=== PATIENT | male | born 1950 | race Caucasian/White ===

== ENCOUNTER 2017-12-26 07:55 | Day surgery (SDC) | payer MEDICARE, OTHER ==
[~2017-12-26 07:55] MED LIST: ACET500; ALBU90OI INH; ALBU90OI6 INH; ALPR.5 PO; ASCO500 PO; ASPI325EC PO; Accuneb1.25 MG/3 INH; Amiodarone HCl200 MG PO; B Complex1 EAC2 PO; BACL10 PO; BENZ100A PO; BREO ELLIPTA 11 EACH IH; BUDE6HFA INH; BUSP10 PO; CEPH500 PO; CHOL10002 PO; CLEARLAX119 GM; CORICIDIN HBP; CORICIDIN HBP PO; CRANBERRY250 MG PO; CYCL10 PO; CYCL1OPSOA LEFTEYE; Chewable-Vite1 EAC1 PO; Coumadin5 MG PO; Coumadin7.5 MG PO; DOCU100 PO; Duoneb 2.5-0.5 M3 ML INH; Esgic Tablet1 EACH PO; FISH OIL 1,2001 EACH PO; FISH1000 PO; FURO20 PO; Flovent 110 MCG12 GM INH; GABA300 PO; GAVILAX17 GM PO; GLIP10 PO; Glucophage1000 MG PO; HYDR1TAB94 PO; IBUPROFEN200 MG PO; INSDET100 SC; INSDET100 SQ; INSULANPEN; INSULANPEN SC; Ibuprofen Ib200 MG; Ibuprofen Ib200 MG PO; Keflex500 MG PO; LAVAP17G PO; LISI20 PO; LOSARTAN POTAS100 MG PO; METF500 PO; METO25ER PO; NAPR220; NAPR220 PO; NAPR375 PO; NAPR500 PO; NITR.4SL SL; Nitrostat0.4 MG SL; Novolog Fl100 UNIT/1; Novolog100 UNIT/1 SC; OMEP20ER PO; OXYC5; OXYC5 PO; PANT40 PO; PARO10 PO; PRAV20 PO; PROM25 PO; Percocet 5-3251 EACH PO; Pravachol80 MG PO; Pred Forte1 ML LEFTEYE; Roxicodone5 MG PO; SENN187 PO; SPIR25 PO; STRESS B-COMPL1 EACH PO; SUCR1 PO; TAMS.4ER PO; TRAM50 PO; TRIA80TC TOP; VITAMIN D35000 UNI1 PO; Vibramycin100 MG PO; WARF7.5 PO; Zithromax250 MG PO; [UNRECOGNIZED DRUG - OTHER] MC
[2018-10-31] MEDS ORDERED: Norco 5-325 Ta1 EACH PO (00:59)
[2018-10-31] MEDS ORDERED: CYCL10 PO (00:59)
== END 2017-12-26 22:46 | disposition home or self-care (01) ==
LOC: WOUND 07:55
DX: Z48.00 Encounter for change or removal of nonsurgical wound dressing (principal); E10.21 Type 1 diabetes mellitus with diabetic nephropathy; S51.002S Unspecified open wound of left elbow, sequela; N18.3 Chronic kidney disease, stage 3 (moderate); I50.20 Unspecified systolic (congestive) heart failure; J44.9 Chronic obstructive pulmonary disease, unspecified; E66.09 Other obesity due to excess calories
CPT/HCPCS: G0463

== ENCOUNTER 2018-01-02 09:00 | Day surgery (SDC) | payer MEDICARE, OTHER ==
[2018-10-31] MEDS ORDERED: Norco 5-325 Ta1 EACH PO (00:59)
[2018-10-31] MEDS ORDERED: CYCL10 PO (00:59)
== END 2018-01-02 14:19 | disposition home or self-care (01) ==
LOC: WOUND 09:00
DX: Z48.00 Encounter for change or removal of nonsurgical wound dressing (principal); S51.002S Unspecified open wound of left elbow, sequela; E10.21 Type 1 diabetes mellitus with diabetic nephropathy; E10.22 Type 1 diabetes mellitus with diabetic chronic kidney disease; I50.20 Unspecified systolic (congestive) heart failure; N18.3 Chronic kidney disease, stage 3 (moderate); J44.9 Chronic obstructive pulmonary disease, unspecified; E66.09 Other obesity due to excess calories
CPT/HCPCS: G0463

== ENCOUNTER 2018-01-08 09:30 | Day surgery (SDC) | payer MEDICARE, OTHER ==
[2018-10-31] MEDS ORDERED: Norco 5-325 Ta1 EACH PO (00:59)
[2018-10-31] MEDS ORDERED: CYCL10 PO (00:59)
== END 2018-01-08 10:18 | disposition home or self-care (01) ==
LOC: WOUND 09:30
DX: Z48.00 Encounter for change or removal of nonsurgical wound dressing (principal); E10.21 Type 1 diabetes mellitus with diabetic nephropathy; S51.002S Unspecified open wound of left elbow, sequela; I50.20 Unspecified systolic (congestive) heart failure; E10.22 Type 1 diabetes mellitus with diabetic chronic kidney disease; N18.3 Chronic kidney disease, stage 3 (moderate); J44.9 Chronic obstructive pulmonary disease, unspecified; E66.09 Other obesity due to excess calories
CPT/HCPCS: G0463

== ENCOUNTER 2018-03-27 08:46 | Day surgery (SDC) | payer MEDICARE, OTHER ==
[~2018-03-27] VITALS: Ht 180.3 cm; Wt 161.6 kg
== END 2018-03-27 12:14 | disposition home or self-care (01) ==
LOC: ORSCSDS 08:46
PROVIDERS: Student in an Organized Health Care Education/Training Program
PROC: 0Y6T0Z1 Detachment at Right 3rd Toe, High, Open Approach (ICD-10-PCS; principal; 2018-03-27 10:15)
DX: E11.621 Type 2 diabetes mellitus with foot ulcer (principal); L97.519 Non-pressure chronic ulcer of other part of right foot with unspecified severity; M20.41 Other hammer toe(s) (acquired), right foot; L08.9 Local infection of the skin and subcutaneous tissue, unspecified; M86.179 Other acute osteomyelitis, unspecified ankle and foot; I10 Essential (primary) hypertension; I50.9 Heart failure, unspecified; I25.2 Old myocardial infarction; I48.91 Unspecified atrial fibrillation; J45.909 Unspecified asthma, uncomplicated; G47.33 Obstructive sleep apnea (adult) (pediatric); K21.9 Gastro-esophageal reflux disease without esophagitis; Z79.01 Long term (current) use of anticoagulants; Z79.82 Long term (current) use of aspirin; Z79.4 Long term (current) use of insulin; Z79.899 Other long term (current) drug therapy; Z87.891 Personal history of nicotine dependence
CPT/HCPCS: 82947; 87070; 87075; 87205; 88305; 88311; J0360; J0690; J2250; J7120

== ENCOUNTER → 2018-05-14 | Outpatient (CLI) | payer MEDICARE, OTHER ==
[2018-05-14 14:33] LABS: International Normalized Ratio 1.55; Prothrombin Time Results 15.6 Sec (9.7-11.5)
== END ==
LOC: LAB UCHC 10:30 → LAB SHORT 10:30
PROVIDERS: Family Medicine
DX: Z79.01 Long term (current) use of anticoagulants (principal); Z51.81 Encounter for therapeutic drug level monitoring; I48.0 Paroxysmal atrial fibrillation
CPT/HCPCS: 85610

== ENCOUNTER → 2018-05-15 | Outpatient (CLI) | payer MEDICARE, OTHER ==
[2018-05-15 17:40] LABS: BASOPHILS ABSOLUTE AUTO 0.06 K/mm3 (0.00-0.23); BASOPHILS PERCENT AUTO 1 % (0-2); EOSINOPHILS ABSOLUTE AUTO 0.15 K/mm3 (0.00-0.68); EOSINOPHILS PERCENT AUTO 2 % (0-6); Hematocrit 46.7 % (37.0-53.0); Hemoglobin 15.4 g/dL (13.5-17.5); IMMATURE GRAN ABSOLUTE AUTO 0.11 K/mm3 (0.00-0.10); IMMATURE GRAN PERCENT AUTO 1 % (0-1); LYMPHOCYTES ABSOLUTE AUTO 2.39 K/mm3 (0.84-5.20); LYMPHOCYTES PERCENT AUTO 25 % (21-46); MONOCYTES PERCENT AUTO 8 % (4-13); Mean Corpuscular HGB 28.6 pg (26.0-34.0); Mean Corpuscular Volume 87 fL (80-100); NEUTROPHILS ABSOLUTE AUTO 5.98 K/mm3 (1.96-9.15); NEUTROPHILS PERCENT AUTO 63 % (41-73); Platelet Count 299 K/mm3 (150-400); RDW Coefficient Variation 15.7 % (11.7-14.2); RDW Standard Deviation 48.8 fL (35.1-46.3); Red Blood Cell Count 5.38 M/mm3 (4.30-5.90); White Blood Cell Count 9.49 K/mm3 (4.00-11.30)
[2018-05-15 17:56] LABS: Anion Gap 11 mmol/L (6-16); Blood Urea Nitrogen 27 mg/dL (8-24); Bun/Creatinine Ratio 17.1 (12.0-20.0); CO2, Blood 24 mmol/L (21-32); Chloride, Blood 105 mmol/L (98-108); Creatinine, Blood 1.58 mg/dL (0.60-1.20); Glomerular Filtration Rate 44 (60-); Glucose, Blood 317 mg/dL (70-99); Potassium, Blood 4.5 mmol/L (3.5-5.5); Sodium, Blood 140 mmol/L (136-145)
[2018-05-15 17:57] LABS: Troponin I <0.017 ng/mL (0.000-0.040)
== END ==
LOC: LAB SHORT 17:37
PROVIDERS: Physician Assistant Surgical
DX: R07.9 Chest pain, unspecified (principal)
CPT/HCPCS: 80048; 84484; 85025

== ENCOUNTER 2018-06-11 23:17 | Emergency (ER) | payer MEDICARE, OTHER ==
[~2018-06-11] VITALS: Ht 180.3 cm; Wt 163.3 kg
[2018-06-11 23:54] LABS: BASOPHILS ABSOLUTE AUTO 0.02 K/mm3 (0.00-0.23); BASOPHILS PERCENT AUTO 0 % (0-2); EOSINOPHILS ABSOLUTE AUTO 0.02 K/mm3 (0.00-0.68); EOSINOPHILS PERCENT AUTO 0 % (0-6); Hematocrit 47.6 % (37.0-53.0); IMMATURE GRAN ABSOLUTE AUTO 0.06 K/mm3 (0.00-0.10); IMMATURE GRAN PERCENT AUTO 1 % (0-1); LYMPHOCYTES ABSOLUTE AUTO 0.79 K/mm3 (0.84-5.20); LYMPHOCYTES PERCENT AUTO 10 % (21-46); MONOCYTES ABSOLUTE AUTO 0.09 K/mm3 (0.16-1.47); MONOCYTES PERCENT AUTO 1 % (4-13); Mean Corpuscular HGB 28.4 pg (26.0-34.0); Mean Corpuscular HGB Conc 31.5 g/dL (31.5-36.5); Mean Corpuscular Volume 90 fL (80-100); Mean Platelet Volume 8.6 fL (9.1-12.4); NEUTROPHILS ABSOLUTE AUTO 6.62 K/mm3 (1.96-9.15); NEUTROPHILS PERCENT AUTO 87 % (41-73); Platelet Count 268 K/mm3 (150-400); RDW Coefficient Variation 15.4 % (11.7-14.2); RDW Standard Deviation 50.8 fL (35.1-46.3); Red Blood Cell Count 5.28 M/mm3 (4.30-5.90)
[2018-06-12 00:13] LABS: Alanine Aminotransfer (ALT/SGP 45 U/L (12-78); Albumin, Blood 3.7 g/dL (3.4-5.0); Alk Phos 69 U/L (50-136); Anion Gap 11 mmol/L (6-16); Aspartate Aminotrans (AST/SGOT 26 U/L (12-37); Bilirubin, Total 0.4 mg/dL (0.1-1.0); Blood Urea Nitrogen 30 mg/dL (8-24); Bun/Creatinine Ratio 17.4 (12.0-20.0); CO2, Blood 21 mmol/L (21-32); Calcium, Blood 8.5 mg/dL (8.5-10.1); Chloride, Blood 106 mmol/L (98-108); Creatinine, Blood 1.72 mg/dL (0.60-1.20); Globulin, Blood 3.7 g/dL (2.2-4.0); Glomerular Filtration Rate 42 (60-); Glucose, Blood 462 mg/dL (70-99); Potassium, Blood 5.2 mmol/L (3.5-5.5); Sodium, Blood 138 mmol/L (136-145); Total Protein, Blood 7.4 g/dL (6.4-8.2); Troponin I <0.015 ng/mL (0.000-0.040)
[2018-06-12 00:20] LABS: International Normalized Ratio 1.12; Prothrombin Time Results 11.5 Sec (9.7-11.5)
== END 2018-06-12 02:50 | disposition home or self-care (01) ==
LOC: ER 23:17
PROVIDERS: Emergency Medicine
DX: E11.65 Type 2 diabetes mellitus with hyperglycemia (principal); R07.9 Chest pain, unspecified; I11.0 Hypertensive heart disease with heart failure; I50.9 Heart failure, unspecified; I25.2 Old myocardial infarction; I48.91 Unspecified atrial fibrillation; E78.00 Pure hypercholesterolemia, unspecified; Z88.0 Allergy status to penicillin; Z88.8 Allergy status to other drugs, medicaments and biological substances; Z79.899 Other long term (current) drug therapy; Z79.01 Long term (current) use of anticoagulants; Z79.84 Long term (current) use of oral hypoglycemic drugs; Z79.82 Long term (current) use of aspirin; Z79.4 Long term (current) use of insulin; Z79.891 Long term (current) use of opiate analgesic
CPT/HCPCS: 36415; 71046; 80053; 82947; 84484; 85025; 85610; 93005; 93010; 99285-25

== ENCOUNTER 2018-07-09 16:32 | Emergency (ER) | payer MEDICARE, OTHER ==
[~2018-07-09] VITALS: Ht 180.3 cm; Wt 155.6 kg
[2018-07-09 17:41] LABS: BASOPHILS ABSOLUTE AUTO 0.07 K/mm3 (0.00-0.23); BASOPHILS PERCENT AUTO 1 % (0-2); EOSINOPHILS ABSOLUTE AUTO 0.31 K/mm3 (0.00-0.68); EOSINOPHILS PERCENT AUTO 4 % (0-6); Hematocrit 45.3 % (37.0-53.0); Hemoglobin 14.7 g/dL (13.5-17.5); IMMATURE GRAN ABSOLUTE AUTO 0.05 K/mm3 (0.00-0.10); IMMATURE GRAN PERCENT AUTO 1 % (0-1); LYMPHOCYTES ABSOLUTE AUTO 2.07 K/mm3 (0.84-5.20); LYMPHOCYTES PERCENT AUTO 29 % (21-46); MONOCYTES ABSOLUTE AUTO 0.71 K/mm3 (0.16-1.47); MONOCYTES PERCENT AUTO 10 % (4-13); Mean Corpuscular HGB 28.8 pg (26.0-34.0); Mean Corpuscular HGB Conc 32.5 g/dL (31.5-36.5); Mean Corpuscular Volume 89 fL (80-100); Mean Platelet Volume 8.5 fL (9.1-12.4); NEUTROPHILS ABSOLUTE AUTO 3.98 K/mm3 (1.96-9.15); NEUTROPHILS PERCENT AUTO 55 % (41-73); Platelet Count 281 K/mm3 (150-400); RDW Coefficient Variation 15.2 % (11.7-14.2); RDW Standard Deviation 49.4 fL (35.1-46.3); Red Blood Cell Count 5.11 M/mm3 (4.30-5.90); White Blood Cell Count 7.19 K/mm3 (4.00-11.30)
[2018-07-09 18:04] LABS: Albumin, Blood 3.6 g/dL (3.4-5.0); Bilirubin, Total 0.3 mg/dL (0.1-1.0); Bun/Creatinine Ratio 15.3 (12.0-20.0); Calcium, Blood 9.7 mg/dL (8.5-10.1); Creatinine, Blood 1.37 mg/dL (0.60-1.20); Globulin, Blood 3.5 g/dL (2.2-4.0); Potassium, Blood 4.3 mmol/L (3.5-5.5); Total Protein, Blood 7.1 g/dL (6.4-8.2)
[2018-07-09] MEDS ORDERED: Percocet 5-3251 EACH PO (19:53)
== END 2018-07-09 20:03 | disposition home or self-care (01) ==
LOC: ER 16:32
PROVIDERS: Emergency Medicine
DX: M50.30 Other cervical disc degeneration, unspecified cervical region (principal); R51 Headache; E11.9 Type 2 diabetes mellitus without complications; I25.2 Old myocardial infarction; I48.91 Unspecified atrial fibrillation; I11.0 Hypertensive heart disease with heart failure; I50.9 Heart failure, unspecified; Z88.0 Allergy status to penicillin; Z88.8 Allergy status to other drugs, medicaments and biological substances; Z79.899 Other long term (current) drug therapy; Z79.01 Long term (current) use of anticoagulants; Z79.4 Long term (current) use of insulin; Z87.891 Personal history of nicotine dependence
CPT/HCPCS: 36415; 72125; 80053; 85025; 93005; 93010; 99284-25

== ENCOUNTER → 2019-03-16 | Outpatient (CLI) | payer MEDICARE, OTHER ==
[~2019-03-16] MED LIST changes: +Norco 5-325 Ta1 EACH PO
[2019-03-16 11:52] LABS: BASOPHILS ABSOLUTE AUTO 0.07 K/mm3 (0.00-0.23); BASOPHILS PERCENT AUTO 1 % (0-2); EOSINOPHILS ABSOLUTE AUTO 0.31 K/mm3 (0.00-0.68); EOSINOPHILS PERCENT AUTO 5 % (0-6); Hematocrit 45.6 % (37.0-53.0); Hemoglobin 14.9 g/dL (13.5-17.5); IMMATURE GRAN ABSOLUTE AUTO 0.03 K/mm3 (0.00-0.10); IMMATURE GRAN PERCENT AUTO 1 % (0-1); LYMPHOCYTES ABSOLUTE AUTO 1.87 K/mm3 (0.84-5.20); LYMPHOCYTES PERCENT AUTO 30 % (21-46); MONOCYTES PERCENT AUTO 10 % (4-13); Mean Corpuscular HGB 28.7 pg (26.0-34.0); Mean Corpuscular HGB Conc 32.7 g/dL (31.5-36.5); Mean Corpuscular Volume 88 fL (80-100); Mean Platelet Volume 9.1 fL (9.1-12.4); NEUTROPHILS ABSOLUTE AUTO 3.27 K/mm3 (1.96-9.15); NEUTROPHILS PERCENT AUTO 53 % (41-73); Platelet Count 233 K/mm3 (150-400); RDW Coefficient Variation 14.5 % (11.7-14.2); RDW Standard Deviation 46.2 fL (35.1-46.3); Red Blood Cell Count 5.19 M/mm3 (4.30-5.90); White Blood Cell Count 6.15 K/mm3 (4.00-11.30)
[2019-03-16 12:20] LABS: Alanine Aminotransfer (ALT/SGP 35 U/L (12-78); Albumin, Blood 3.5 g/dL (3.4-5.0); Alk Phos 77 U/L (40-126); Anion Gap 10 mmol/L (6-16); Aspartate Aminotrans (AST/SGOT 24 U/L (12-37); Bilirubin, Total 0.6 mg/dL (0.1-1.0); Blood Urea Nitrogen 19 mg/dL (8-24); CO2, Blood 26 mmol/L (21-32); Calcium, Blood 8.8 mg/dL (8.5-10.1); Chloride, Blood 105 mmol/L (98-108); Creatinine, Blood 1.36 mg/dL (0.60-1.20); Globulin, Blood 3.6 g/dL (2.2-4.0); Glomerular Filtration Rate 52 (60-); Glucose, Blood 208 mg/dL (70-99); Potassium, Blood 4.1 mmol/L (3.5-5.5); Sodium, Blood 141 mmol/L (136-145); Total Protein, Blood 7.1 g/dL (6.4-8.2)
[2019-03-16 12:28] LABS: Troponin I <0.017 ng/mL (0.000-0.040)
== END | disposition home or self-care (01) ==
LOC: LAB SHORT 11:44 → LAB EV 11:44
PROVIDERS: Physician Assistant
DX: R07.9 Chest pain, unspecified (principal)
CPT/HCPCS: 80053; 83880; 84484; 85025

== ENCOUNTER 2019-06-24 17:30 | Emergency (ER) | payer MEDICARE, OTHER ==
[~2019-06-24] VITALS: Ht 180.3 cm; Wt 147.4 kg
[2019-06-24 18:08] LABS: BASOPHILS ABSOLUTE AUTO 0.05 K/mm3 (0.00-0.23); BASOPHILS PERCENT AUTO 1 % (0-2); EOSINOPHILS ABSOLUTE AUTO 0.28 K/mm3 (0.00-0.68); EOSINOPHILS PERCENT AUTO 4 % (0-6); Hemoglobin 15.1 g/dL (13.5-17.5); IMMATURE GRAN ABSOLUTE AUTO 0.04 K/mm3 (0.00-0.10); IMMATURE GRAN PERCENT AUTO 1 % (0-1); LYMPHOCYTES ABSOLUTE AUTO 2.09 K/mm3 (0.84-5.20); LYMPHOCYTES PERCENT AUTO 29 % (21-46); MONOCYTES ABSOLUTE AUTO 0.64 K/mm3 (0.16-1.47); MONOCYTES PERCENT AUTO 9 % (4-13); Mean Corpuscular HGB 28.9 pg (26.0-34.0); Mean Corpuscular HGB Conc 32.1 g/dL (31.5-36.5); Mean Corpuscular Volume 90 fL (80-100); Mean Platelet Volume 8.7 fL (9.1-12.4); NEUTROPHILS ABSOLUTE AUTO 4.14 K/mm3 (1.96-9.15); NEUTROPHILS PERCENT AUTO 57 % (41-73); Platelet Count 295 K/mm3 (150-400); RDW Coefficient Variation 14.1 % (11.7-14.2); RDW Standard Deviation 46.8 fL (35.1-46.3); Red Blood Cell Count 5.22 M/mm3 (4.30-5.90); White Blood Cell Count 7.24 K/mm3 (4.00-11.30)
[2019-06-24 18:25] LABS: International Normalized Ratio 1.7; Prothrombin Time Results 17.2 Sec (9.7-11.5)
[2019-06-24 18:31] LABS: Alanine Aminotransfer (ALT/SGP 39 U/L (12-78); Albumin, Blood 3.6 g/dL (3.4-5.0); Albumin/Globulin Ratio 1.1 (0.8-1.8); Alk Phos 87 U/L (50-136); Anion Gap 7 mmol/L (6-16); Aspartate Aminotrans (AST/SGOT 21 U/L (12-37); Bilirubin, Total 0.7 mg/dL (0.1-1.0); Blood Urea Nitrogen 20 mg/dL (8-24); Bun/Creatinine Ratio 16.3 (12.0-20.0); CO2, Blood 26 mmol/L (21-32); Calcium, Blood 8.7 mg/dL (8.5-10.1); Chloride, Blood 109 mmol/L (98-108); Creatinine, Blood 1.23 mg/dL (0.60-1.20); Globulin, Blood 3.3 g/dL (2.2-4.0); Glomerular Filtration Rate >60 (60-); Glucose, Blood 218 mg/dL (70-99); Sodium, Blood 142 mmol/L (136-145); Total Protein, Blood 6.9 g/dL (6.4-8.2); Troponin I <0.015 ng/mL (0.000-0.040)
[2019-06-24 19:39] LABS: Source, Urine Clean Catch
[2019-06-24 19:42] LABS: Bilirubin, Urine Neg (Neg); Blood, Urine 1+ (Neg); Glucose Qualitative, Urine 2+ (Neg); Ketones, Urine Neg (Neg); Leukocyte Esterase, Urine Neg (Neg); Nitrite, Urine Neg (Neg); Protein, Urine 4+ (Neg); Urobilinogen, Urine NORM (Normal)
[2019-06-24 19:49] LABS: Appearance, Urine Clear (Clear); Color, Urine Yellow (P-Yellow)
[2019-06-24 19:50] LABS: Bacteria Not Seen /hpf; Mucus Light (0-Heavy); Red Blood Cells, Urine 0-2 /hpf (0-2); Squamous Epithelial Cells Few /hpf (Few); White Blood Cells, Urine 0-2 /hpf (0-5)
== END 2019-06-24 20:20 | disposition home or self-care (01) ==
LOC: ER 17:30
PROVIDERS: Physician Assistant
DX: R07.9 Chest pain, unspecified (principal); R06.00 Dyspnea, unspecified; D68.9 Coagulation defect, unspecified; Z88.0 Allergy status to penicillin; Z88.8 Allergy status to other drugs, medicaments and biological substances; Z79.899 Other long term (current) drug therapy; Z79.01 Long term (current) use of anticoagulants; Z79.84 Long term (current) use of oral hypoglycemic drugs; Z79.82 Long term (current) use of aspirin; Z79.4 Long term (current) use of insulin; E11.9 Type 2 diabetes mellitus without complications; I25.2 Old myocardial infarction; I48.91 Unspecified atrial fibrillation; I11.0 Hypertensive heart disease with heart failure; I50.9 Heart failure, unspecified; E78.00 Pure hypercholesterolemia, unspecified; Z87.891 Personal history of nicotine dependence
CPT/HCPCS: 36415; 71046; 80053; 81001; 83880; 84484; 85025; 85610; 93005; 93010; 94640; 99284-25

== ENCOUNTER 2019-08-29 11:19 | Emergency (ER) | payer MEDICARE, OTHER ==
[~2019-08-29] VITALS: Ht 180.3 cm; Wt 142.4 kg
[2019-08-29 11:43] LABS: BASOPHILS ABSOLUTE AUTO 0.06 K/mm3 (0.00-0.23); BASOPHILS PERCENT AUTO 1 % (0-2); EOSINOPHILS ABSOLUTE AUTO 0.33 K/mm3 (0.00-0.68); EOSINOPHILS PERCENT AUTO 5 % (0-6); Hemoglobin 14.5 g/dL (13.5-17.5); IMMATURE GRAN ABSOLUTE AUTO 0.03 K/mm3 (0.00-0.10); IMMATURE GRAN PERCENT AUTO 0 % (0-1); LYMPHOCYTES ABSOLUTE AUTO 1.58 K/mm3 (0.84-5.20); LYMPHOCYTES PERCENT AUTO 22 % (21-46); MONOCYTES ABSOLUTE AUTO 0.57 K/mm3 (0.16-1.47); MONOCYTES PERCENT AUTO 8 % (4-13); Mean Corpuscular HGB 28.8 pg (26.0-34.0); Mean Corpuscular HGB Conc 32.2 g/dL (31.5-36.5); Mean Corpuscular Volume 89 fL (80-100); Mean Platelet Volume 9.2 fL (9.1-12.4); NEUTROPHILS ABSOLUTE AUTO 4.72 K/mm3 (1.96-9.15); NEUTROPHILS PERCENT AUTO 65 % (41-73); Platelet Count 231 K/mm3 (150-400); RDW Standard Deviation 45.3 fL (35.1-46.3); Red Blood Cell Count 5.04 M/mm3 (4.30-5.90); White Blood Cell Count 7.29 K/mm3 (4.00-11.30)
[2019-08-29 11:53] LABS: Anion Gap 4 mmol/L (6-16); Blood Urea Nitrogen 19 mg/dL (8-24); Bun/Creatinine Ratio 16.5 (12.0-20.0); CO2, Blood 26 mmol/L (21-32); Calcium, Blood 8.6 mg/dL (8.5-10.1); Chloride, Blood 110 mmol/L (98-108); Creatinine, Blood 1.15 mg/dL (0.60-1.20); Glomerular Filtration Rate >60 (60-); Glucose, Blood 219 mg/dL (70-99); Potassium, Blood 4.4 mmol/L (3.5-5.5); Sodium, Blood 140 mmol/L (136-145)
[2019-08-29] MEDS ORDERED: Norco 10-325 T1 EACH PO (14:16)
== END 2019-08-29 14:35 | disposition home or self-care (01) ==
LOC: ER 11:19
PROVIDERS: Emergency Medicine
DX: S16.1XXA Strain of muscle, fascia and tendon at neck level, initial encounter (principal); S80.02XA Contusion of left knee, initial encounter; S80.01XA Contusion of right knee, initial encounter; S70.01XA Contusion of right hip, initial encounter; M25.562 Pain in left knee; E11.9 Type 2 diabetes mellitus without complications; I25.2 Old myocardial infarction; I11.0 Hypertensive heart disease with heart failure; I50.9 Heart failure, unspecified; I48.91 Unspecified atrial fibrillation; Z87.891 Personal history of nicotine dependence; Z88.1 Allergy status to other antibiotic agents; Z88.8 Allergy status to other drugs, medicaments and biological substances; Z79.899 Other long term (current) drug therapy; Z79.01 Long term (current) use of anticoagulants; Z79.82 Long term (current) use of aspirin; Z79.4 Long term (current) use of insulin; W01.10XA Fall on same level from slipping, tripping and stumbling with subsequent striking against unspecified object, initial encounter
CPT/HCPCS: 36415; 72125; 72192; 73030; 73502; 73560-LT; 80048; 85025; 96374; 99284-25; J0692; J2270

== ENCOUNTER 2019-09-05 15:39 | Emergency (ER) | payer MEDICARE, OTHER ==
[~2019-09-05] VITALS: Ht 180.3 cm; Wt 151.9 kg
[~2019-09-05 15:39] MED LIST changes: +Norco 10-325 T1 EACH PO
[2019-09-05 18:08] LABS: International Normalized Ratio 1.78; Prothrombin Time Results 17.9 Sec (9.7-11.5)
[2019-09-05] MEDS ORDERED: Norco 5-325 Ta1 EACH PO (18:30)
[2019-09-05] MEDS ORDERED: Vibramycin100 MG PO ×2 (18:30→18:40)
== END 2019-09-05 18:59 | disposition home or self-care (01) ==
LOC: ER 15:39
PROVIDERS: Physician Assistant
DX: S92.422A Displaced fracture of distal phalanx of left great toe, initial encounter for closed fracture (principal); S90.32XA Contusion of left foot, initial encounter; L03.116 Cellulitis of left lower limb; E11.9 Type 2 diabetes mellitus without complications; I11.0 Hypertensive heart disease with heart failure; I50.9 Heart failure, unspecified; I48.91 Unspecified atrial fibrillation; Z87.891 Personal history of nicotine dependence; Z88.1 Allergy status to other antibiotic agents; Z88.8 Allergy status to other drugs, medicaments and biological substances; Z79.899 Other long term (current) drug therapy; Z79.01 Long term (current) use of anticoagulants; Z79.82 Long term (current) use of aspirin; Z79.4 Long term (current) use of insulin; W19.XXXA Unspecified fall, initial encounter
CPT/HCPCS: 36415; 73590; 73620; 85610; 99283-25

== ENCOUNTER → 2019-11-03 | Outpatient (CLI) | payer MEDICARE, OTHER ==
[~2019-11-03] MED LIST changes: +ACET325 PO; +AMLODIPINE BESY10 MG PO; +ATOR40TA PO; +BUPR150ER PO; +Budesonide0.5 MG/2 M NEB; +Culturelle1 CAP PO; +Duoneb 2.5-0.5 M3 ML NEB; +HUMULIN 70100 UNIT/2 SC; +HUMULIN 70100 UNIT/2 SQ; -OXYC5; -PARO10 PO; +PARO20 PO; +Pedi-Dri 100,0060 GM TOP
[2019-11-03 16:20] LABS: BASOPHILS ABSOLUTE AUTO 0.09 K/mm3 (0.00-0.23); BASOPHILS PERCENT AUTO 1 % (0-2); EOSINOPHILS PERCENT AUTO 4 % (0-6); Hematocrit 48.2 % (37.0-53.0); IMMATURE GRAN ABSOLUTE AUTO 0.05 K/mm3 (0.00-0.10); IMMATURE GRAN PERCENT AUTO 1 % (0-1); LYMPHOCYTES ABSOLUTE AUTO 3.06 K/mm3 (0.84-5.20); LYMPHOCYTES PERCENT AUTO 33 % (21-46); MONOCYTES ABSOLUTE AUTO 0.78 K/mm3 (0.16-1.47); MONOCYTES PERCENT AUTO 8 % (4-13); Mean Corpuscular HGB 28.8 pg (26.0-34.0); Mean Corpuscular HGB Conc 31.1 g/dL (31.5-36.5); Mean Corpuscular Volume 93 fL (80-100); Mean Platelet Volume 9.4 fL (9.1-12.4); NEUTROPHILS ABSOLUTE AUTO 4.96 K/mm3 (1.96-9.15); NEUTROPHILS PERCENT AUTO 53 % (41-73); Platelet Count 281 K/mm3 (150-400); RDW Coefficient Variation 14.2 % (11.7-14.2); White Blood Cell Count 9.34 K/mm3 (4.00-11.30)
[2019-11-03 16:33] LABS: Very Low Density Lipoprot Chol 43 mg/dL (6-32)
[2019-11-03 16:42] LABS: Alanine Aminotransfer (ALT/SGP 37 U/L (12-78); Albumin, Blood 3.6 g/dL (3.4-5.0); Alk Phos 69 U/L (50-136); Anion Gap 7 mmol/L (6-16); Aspartate Aminotrans (AST/SGOT 20 U/L (12-37); Bilirubin, Total 0.7 mg/dL (0.1-1.0); Blood Urea Nitrogen 27 mg/dL (8-24); CHOL/HDL RATIO 3.9; CO2, Blood 25 mmol/L (21-32); Calcium, Blood 9.3 mg/dL (8.5-10.1); Chloride, Blood 110 mmol/L (98-108); Cholesterol 172 mg/dL (50-200); Globulin, Blood 3.5 g/dL (2.2-4.0); Glomerular Filtration Rate 49 (60-); Glucose, Blood 175 mg/dL (70-99); HDL Cholesterol 44 mg/dL (>39); LDL/HDL RATIO 1.9; Low Density Lipoprotein Chol 85 mg/dL (0-110); Potassium, Blood 4.2 mmol/L (3.5-5.5); Prostate Specific Antigen 0.301 ng/mL (0.000-4.000); Sodium, Blood 142 mmol/L (136-145); Total Protein, Blood 7.1 g/dL (6.4-8.2); Triglycerides 215 mg/dL (30-160)
[2019-11-03 18:22] LABS: Creatinine, Urine Random 91.4 mg/dL (27.00-270.00)
[2019-11-03 18:31] LABS: Microalb/Creat Ratio UR, Rand 1794.31 mg/g (0.000-30.000)
== END ==
LOC: LAB SHORT 14:15 → LAB 14:15 → LAB FUT 10-19 08:40 → EDSTATUS 10-19 08:40
PROVIDERS: Family Medicine
DX: E11.22 Type 2 diabetes mellitus with diabetic chronic kidney disease (principal); N18.9 Chronic kidney disease, unspecified; N40.1 Benign prostatic hyperplasia with lower urinary tract symptoms; E11.65 Type 2 diabetes mellitus with hyperglycemia; E11.42 Type 2 diabetes mellitus with diabetic polyneuropathy; Z79.4 Long term (current) use of insulin
CPT/HCPCS: 80053; 80061; 82043; 82570; 83036; 84153; 84443; 85025

== ENCOUNTER 2019-12-08 12:21 | Inpatient (IN) | payer MEDICARE, OTHER ==
[~2019-12-08] VITALS: Ht 180.3 cm; Wt 154.4 kg
[~2019-12-08 12:21] MED LIST changes: -ACET325 PO; -ALBU90OI6 INH; -AMLODIPINE BESY10 MG PO; -ATOR40TA PO; -BUPR150ER PO; -Budesonide0.5 MG/2 M NEB; -Culturelle1 CAP PO; -Duoneb 2.5-0.5 M3 ML NEB; -GABA300 PO; -GLIP10 PO; -Glucophage1000 MG PO; -HUMULIN 70100 UNIT/2 SC; -HUMULIN 70100 UNIT/2 SQ; -LOSARTAN POTAS100 MG PO; -METO25ER PO; -PARO20 PO; -Pedi-Dri 100,0060 GM TOP; -TAMS.4ER PO
[2019-12-08 13:33] LABS: BASOPHILS ABSOLUTE AUTO 0.05 K/mm3 (0.00-0.23); BASOPHILS PERCENT AUTO 0 % (0-2); EOSINOPHILS ABSOLUTE AUTO 0.02 K/mm3 (0.00-0.68); EOSINOPHILS PERCENT AUTO 0 % (0-6); Hematocrit 48.4 % (37.0-53.0); Hemoglobin 15.5 g/dL (13.5-17.5); IMMATURE GRAN ABSOLUTE AUTO 0.08 K/mm3 (0.00-0.10); IMMATURE GRAN PERCENT AUTO 1 % (0-1); LYMPHOCYTES ABSOLUTE AUTO 2.12 K/mm3 (0.84-5.20); LYMPHOCYTES PERCENT AUTO 13 % (21-46); MONOCYTES ABSOLUTE AUTO 1.64 K/mm3 (0.16-1.47); MONOCYTES PERCENT AUTO 10 % (4-13); Mean Corpuscular HGB 28.6 pg (26.0-34.0); Mean Corpuscular Volume 89 fL (80-100); Mean Platelet Volume 9.3 fL (9.1-12.4); NEUTROPHILS ABSOLUTE AUTO 12.32 K/mm3 (1.96-9.15); NEUTROPHILS PERCENT AUTO 76 % (41-73); Platelet Count 285 K/mm3 (150-400); RDW Coefficient Variation 14.3 % (11.7-14.2); RDW Standard Deviation 46.4 fL (35.1-46.3); Red Blood Cell Count 5.42 M/mm3 (4.30-5.90); White Blood Cell Count 16.23 K/mm3 (4.00-11.30)
[2019-12-08 15:03] LABS: Alanine Aminotransfer (ALT/SGP 48 U/L (12-78); Albumin, Blood 3.6 g/dL (3.4-5.0); Albumin/Globulin Ratio 0.9 (0.8-1.8); Alk Phos 71 U/L (50-136); Anion Gap 9 mmol/L (6-16); Aspartate Aminotrans (AST/SGOT 23 U/L (12-37); Bilirubin, Total 0.9 mg/dL (0.1-1.0); Blood Urea Nitrogen 24 mg/dL (8-24); Bun/Creatinine Ratio 15.8 (12.0-20.0); CO2, Blood 21 mmol/L (21-32); Calcium, Blood 9.1 mg/dL (8.5-10.1); Chloride, Blood 111 mmol/L (98-108); Creatinine, Blood 1.52 mg/dL (0.60-1.20); Globulin, Blood 3.8 g/dL (2.2-4.0); Glomerular Filtration Rate 49 (60-); Glucose, Blood 197 mg/dL (70-99); Potassium, Blood 4.6 mmol/L (3.5-5.5); Sodium, Blood 141 mmol/L (136-145); Total Protein, Blood 7.4 g/dL (6.4-8.2); Troponin I <0.015 ng/mL (0.000-0.040)
[2019-12-08] MEDS ORDERED: PARO20 PO ×2 (15:40)
[2019-12-08] MEDS ORDERED: Glucophage1000 MG PO ×2 (15:40)
[2019-12-08] MEDS ORDERED: BUPR150ER PO ×2 (15:41)
[2019-12-08] MEDS ORDERED: Duoneb 2.5-0.5 M3 ML NEB ×2 (15:42)
[2019-12-08] MEDS ORDERED: HUMULIN 70100 UNIT/2 SC ×2 (15:43)
[2019-12-08] MEDS ORDERED: OXYC5 PO ×2 (15:45)
[2019-12-08] MEDS ORDERED: METO25ER PO ×2 (15:45)
[2019-12-08] MEDS ORDERED: TAMS.4ER PO ×2 (15:45)
[2019-12-08] MEDS ORDERED: WARF7.5 PO ×2 (15:46)
[2019-12-08] MEDS ORDERED: LOSARTAN POTAS100 MG PO ×2 (15:47)
[2019-12-08] MEDS ORDERED: AMLODIPINE BESY10 MG PO ×2 (15:47)
[2019-12-08] MEDS ORDERED: FURO20 PO ×2 (15:48)
[2019-12-08] MEDS ORDERED: GLIP10 PO ×2 (15:48)
[2019-12-08] MEDS ORDERED: ATOR40TA PO ×2 (15:49)
[2019-12-08] MEDS ORDERED: GABA300 PO ×2 (15:50)
[2019-12-08 16:11] LABS: International Normalized Ratio 3.29; Prothrombin Time Results 32.9 Sec (9.7-11.5)
[2019-12-08] MEDS ORDERED: Budesonide0.5 MG/2 M NEB ×2 (16:12)
[2019-12-08] MEDS ORDERED: ALBU90OI6 INH ×2 (16:12)
--- NOTE | 2019-12-08 20:15 | NUR ---
ARRIVAL TO PCU Pt arrives to PCU 11 at approx 1922 with ED RN at bedside. Pt transferred SBA to PCU bed. Pt in atrial fibrillation 110's-120s on arrival, htn noted. Pt with complaints of pain to LLE; medication given per orders. Pt alert and oriented but moderately forgetful. Pt's at bedside and states that pt is forgetful at baseline but has been more forgetful in the past couple of days. See admission assessment for detailed systems assessment. Will continue to montior.
[2019-12-09 03:45] LABS: BASOPHILS PERCENT AUTO 1 % (0-2); Hematocrit 45.5 % (37.0-53.0); Hemoglobin 14.9 g/dL (13.5-17.5); LYMPHOCYTES ABSOLUTE AUTO 2.23 K/mm3 (0.84-5.20); LYMPHOCYTES PERCENT AUTO 13 % (21-46); MONOCYTES ABSOLUTE AUTO 1.79 K/mm3 (0.16-1.47); MONOCYTES PERCENT AUTO 10 % (4-13); Mean Corpuscular HGB 28.9 pg (26.0-34.0); Mean Corpuscular HGB Conc 32.7 g/dL (31.5-36.5); Mean Corpuscular Volume 88 fL (80-100); Mean Platelet Volume 9.1 fL (9.1-12.4); Platelet Count 231 K/mm3 (150-400); RDW Coefficient Variation 14.3 % (11.7-14.2); RDW Standard Deviation 46.5 fL (35.1-46.3); Red Blood Cell Count 5.15 M/mm3 (4.30-5.90); White Blood Cell Count 17.46 K/mm3 (4.00-11.30)
[2019-12-09 03:51] LABS: EOSINOPHILS ABSOLUTE AUTO 0.25 K/mm3 (0.00-0.68); EOSINOPHILS PERCENT AUTO 1 % (0-6); IMMATURE GRAN ABSOLUTE AUTO 0.08 K/mm3 (0.00-0.10); IMMATURE GRAN PERCENT AUTO 1 % (0-1); NEUTROPHILS ABSOLUTE AUTO 13.01 K/mm3 (1.96-9.15); NEUTROPHILS PERCENT AUTO 74 % (41-73)
[2019-12-09 04:00] LABS: International Normalized Ratio 1.73; Prothrombin Time Results 17.9 Sec (9.7-11.5)
--- NOTE | 2019-12-09 04:05 | NUR ---
Shift Summary Pt with no acute events overnight. Provider called for HR and BP elevation. 5mg IV lopressor given x2 per orders and HR and BP resolved. Pt using urinal in bed with assistance. Pain controlled with 5mg oxycodone. Pt uses call light to make needs known. Pt urgent with voiding. Normothermic this shift since admission. No acute changes from initial admission assessment. Cellulitis to LLE marked by ER to monitor growth and changes. Hand off given to RAFAEL Piedra who assumes care.
[2019-12-09 04:09] LABS: Albumin, Blood 3.2 g/dL (3.4-5.0); Albumin/Globulin Ratio 0.9 (0.8-1.8); Bilirubin, Total 0.9 mg/dL (0.1-1.0); Bun/Creatinine Ratio 16.2 (12.0-20.0); Calcium, Blood 8.7 mg/dL (8.5-10.1); Creatinine, Blood 1.48 mg/dL (0.60-1.20); Globulin, Blood 3.6 g/dL (2.2-4.0); Potassium, Blood 4.2 mmol/L (3.5-5.5); Total Protein, Blood 6.8 g/dL (6.4-8.2)
--- NOTE | 2019-12-09 08:50 | NUR ---
AM NOTE... ASSUMED CARE OF PT APROX 0700. PT IS A&Ox4 AND SBA IN THE ROOM. PT WAS SITTING UP IN RECLINER CHAIR AT THE START OF THIS SHIFT. PT WAS ADMITTED FOR SEPSIS D/T CELLULITIS OF THE LEFT KNEE/CALF. PT HAS 10/10 PAIN WHEN HIS LEFT LEG IS TOUCHED, RESTING THE PAIN IS 7/10. PT'S VS STABLE. L/S CLEAR. BT PRESENT AND NORMOACTIVE. ABD IS SOFT AND NONTENDER. CALL LIGHT IN REACH WILL CONTINUE TO MONITOR.
--- NOTE | 2019-12-09 12:18 | NUR ---
PT UPDATE... PER PROVIDER PLEASE MEASURE PT'S LEFT CALF PER SHIFT X3 SHIFTS AND THEN DAILY. TODAY THE PT'S RIGHT CALF IS 15.5 INCHES, HIS LEFT CALF IS 17.5 INCHES.
--- NOTE | 2019-12-09 12:31 | NUR ---
Spiritual care visit conducted. Patient is sitting on a chair and alert. Patient immediately shares about his family unit complications, about his medical issues and about his career/family/orthodox history. Patient tells me about the stress and tension he is living in. I listen empathically, normalize patient experience, explore orthodox beliefs, conduct life review and provide grief/emotional support, pastoral phone counselor and prayer. Patient responds well and shows signs of reduced stress. Patient voices gratitude for the visit.
--- NOTE | 2019-12-09 15:08 | NUR ---
PT UPDATE... REPORT WAS CALLED TO MEDICAL FLOOR RN, PT'S BELONGINGS PACKED AND SENT W/PT. PT WAS MEDICATED FOR PAIN PRIOR TO TRANSFER.
--- NOTE | 2019-12-09 17:51 | NUR ---
PT ARRIVED TO THE UNIT VIA WHEEL CHAIR. PT ORIENTATED TO THE ROOM. AT BEDSIDE. PT TO RECIEVE ULTRASOUND OF THE LEG WILL DETERMINE COURSE OF TREATMENT. NO NEEDS AT THIS TIME
--- NOTE | 2019-12-10 | NUR ---
PATIENT RECEIVED IV ABX X TWO. AXOX 3. CBG 181. DENIES PAIN AT THIS TIME. CPAP ON AND CALL LIGHT IN REACH.
--- NOTE | 2019-12-10 04:14 | NUR ---
SHIFT SUMMARY PATIENT HAD NO ACUTE CHANGES OBSERVED. AXOX 3 AND BEDREST AT NIGHT. USES URINAL IN BED WITH ASSIST. CBG 181. PIV REMAINS INTACT. IV ABX INFUSED X THREE. VSS/FEBRILE. DENIES SOB AND N/V. USES CPAP AT NIGHT ON ROOM AIR. LLE CELLULITIS. DENIES PAIN AT THIS TIME. CALL LIGHT IN REACH. BED IN LOWEST POSITON. WILL CONTINUE TO MONITOR UNTIL DAY SHIFT NURSE ASSUMES CARE.
[2019-12-10 05:04] LABS: BASOPHILS ABSOLUTE AUTO 0.06 K/mm3 (0.00-0.23); BASOPHILS PERCENT AUTO 0 % (0-2); EOSINOPHILS ABSOLUTE AUTO 0.44 K/mm3 (0.00-0.68); EOSINOPHILS PERCENT AUTO 3 % (0-6); Hematocrit 44.4 % (37.0-53.0); IMMATURE GRAN ABSOLUTE AUTO 0.06 K/mm3 (0.00-0.10); IMMATURE GRAN PERCENT AUTO 0 % (0-1); LYMPHOCYTES ABSOLUTE AUTO 2.26 K/mm3 (0.84-5.20); LYMPHOCYTES PERCENT AUTO 16 % (21-46); MONOCYTES ABSOLUTE AUTO 1.29 K/mm3 (0.16-1.47); MONOCYTES PERCENT AUTO 9 % (4-13); Mean Corpuscular HGB 28.2 pg (26.0-34.0); Mean Corpuscular HGB Conc 31.5 g/dL (31.5-36.5); Mean Corpuscular Volume 90 fL (80-100); Mean Platelet Volume 9.6 fL (9.1-12.4); NEUTROPHILS PERCENT AUTO 70 % (41-73); Platelet Count 219 K/mm3 (150-400); RDW Coefficient Variation 14.2 % (11.7-14.2); RDW Standard Deviation 46.1 fL (35.1-46.3); Red Blood Cell Count 4.96 M/mm3 (4.30-5.90); White Blood Cell Count 13.81 K/mm3 (4.00-11.30)
--- NOTE | 2019-12-10 05:14 | NUR ---
PT UPDATE: LEFT CALF MEASUREMENT: 18.0 INCHES.
[2019-12-10 05:20] LABS: International Normalized Ratio 1.35; Prothrombin Time Results 14.2 Sec (9.7-11.5)
[2019-12-10 05:29] LABS: Albumin, Blood 2.8 g/dL (3.4-5.0); Albumin/Globulin Ratio 0.7 (0.8-1.8); Bilirubin, Total 0.6 mg/dL (0.1-1.0); Bun/Creatinine Ratio 20.4 (12.0-20.0); Calcium, Blood 8.6 mg/dL (8.5-10.1); Creatinine, Blood 1.62 mg/dL (0.60-1.20); Globulin, Blood 3.9 g/dL (2.2-4.0); Potassium, Blood 4.1 mmol/L (3.5-5.5); Total Protein, Blood 6.7 g/dL (6.4-8.2)
--- NOTE | 2019-12-10 15:46 | NUR ---
Spiritual care visit conducted. Patient is sitting on a chair and alert. Patient is tearful today during my visit. He explains that he is having a terrible time putting his thoughts together and he is afraid that the doctors are not going to be able to help him before it is to late. I assure him of the quality of staff and that the doctors have a whole lot mor eto bring to his situation before it is too late. I focus patient back to his garrick and the power of God to bring peace and to center him when he is afraid. I listen empathically and provide companionship, pastoral corporate counselor and prayer. Patient responds well and shows signs of reduced stress. I will continue to remain available to patient and family.
--- NOTE | 2019-12-10 18:48 | NUR ---
SHIFT SUMMARY PT HAD AO ACUTE CHANGES THIS SHIFT. PT HAD A HARD TIME CONTROLING PAIN MEDICATED X3 FOR PAIN. DR BHATTI CONSULTED AND ASPIRATED FLUID FROM KNEE, FLUID SENT TO MICRO FOR GRAM CULTURES. PT WAS UN ABLE TO TOLORATE BEARING WEIGHT ON LEFT KNEE. PT TOLORATED FOOD WELL. BED ALARM ON AND CALL LIGHT WITH IN REACH. WILL COUNTINUE TO MONITOR AND REPORT TO ON COMING SHIFT.
--- NOTE | 2019-12-11 04:07 | NUR ---
SHIFT SUMMARY PATIENT HAD NO ACUTE CHANGES OBSERVED THIS SHIFT. AXOX 3 AND BEDREST. USES URINAL AT BEDSIDE. REPORTED LEFT KNEE PAIN X ONE AND OXYCODONE 10 MG GIVEN PER EMAR. LEFT KNEE WRAPPED FROM WHEN DR ANDERSON ASPIRATED FLUIDS FROM KNEE. CBG 146. PIV REMAINS INTACT. IV ABXS INFUSED. AGRICULTURAL COMMODITIES GRADER REPORTS NSR 78. USES CPAP AT NIGHT ON CONTINUOUS PULSE OXIMETRY AND ROOM AIR. DENIES SOB AND N/V., VSS/AFBERILE. CALL LIGHT IN REACH. BED IN LOWEST POSITION. WILL CONTINUE TO MONITOR UNTIL DAY SHIFT NURSE ASSUMES CARE.
[2019-12-11 05:43] LABS: BASOPHILS ABSOLUTE AUTO 0.08 K/mm3 (0.00-0.23); BASOPHILS PERCENT AUTO 1 % (0-2); EOSINOPHILS ABSOLUTE AUTO 0.53 K/mm3 (0.00-0.68); EOSINOPHILS PERCENT AUTO 6 % (0-6); Hemoglobin 14.1 g/dL (13.5-17.5); IMMATURE GRAN ABSOLUTE AUTO 0.06 K/mm3 (0.00-0.10); IMMATURE GRAN PERCENT AUTO 1 % (0-1); LYMPHOCYTES PERCENT AUTO 24 % (21-46); MONOCYTES ABSOLUTE AUTO 0.91 K/mm3 (0.16-1.47); MONOCYTES PERCENT AUTO 10 % (4-13); Mean Corpuscular Volume 90 fL (80-100); Mean Platelet Volume 9.1 fL (9.1-12.4); NEUTROPHILS ABSOLUTE AUTO 5.24 K/mm3 (1.96-9.15); NEUTROPHILS PERCENT AUTO 59 % (41-73); Platelet Count 215 K/mm3 (150-400); RDW Coefficient Variation 13.8 % (11.7-14.2); RDW Standard Deviation 46.2 fL (35.1-46.3); Red Blood Cell Count 4.87 M/mm3 (4.30-5.90); White Blood Cell Count 8.92 K/mm3 (4.00-11.30)
[2019-12-11 05:57] LABS: International Normalized Ratio 1.12; Prothrombin Time Results 11.9 Sec (9.7-11.5)
[2019-12-11 06:02] LABS: Albumin, Blood 2.9 g/dL (3.4-5.0); Anion Gap 8 mmol/L (6-16); Blood Urea Nitrogen 32 mg/dL (8-24); Bun/Creatinine Ratio 20.8 (12.0-20.0); CO2, Blood 23 mmol/L (21-32); Calcium, Blood 8.4 mg/dL (8.5-10.1); Chloride, Blood 108 mmol/L (98-108); Creatinine, Blood 1.54 mg/dL (0.60-1.20); Glomerular Filtration Rate 48 (60-); Glucose, Blood 125 mg/dL (70-99); Phosphorus, Blood 3.5 mg/dL (2.5-4.9); Potassium, Blood 3.6 mmol/L (3.5-5.5); Sodium, Blood 139 mmol/L (136-145); Vancomycin, Random 16.4 ug/mL
--- NOTE | 2019-12-11 13:28 | NUR ---
Spiritual care visit conducted. Patient is sitting on a chair and alert. Patient is more clear and upbeat today. Patient is very thankful for the care he has received at [facility] and expresses thankfulness for his and children. Patient does express concern about having to go to a rehab center before going home so patient says he is very motivated to work with PT and OT today. I listen empathically and provide emotional support and prayer. Patient responds well and shows signs of an elevated mood. I will continue to remain available to patient and family.
--- NOTE | 2019-12-12 04:03 | NUR ---
SHIFT SUMMARY A/O, ABLE TO MAKE NEEDS KNOWN. COOPERATIVE WITH CARE. CALLS AND ANSWERS QUESTIONS APPROPRIATELY. C/O PAIN/DISCOMFORT TO LLE; MEDICATED PER EMAR. ASPIRATION OF L KNEE PERFORMED BY SURGEON DR. ANDERSON YEILDED 1.5L OF THICK PURULENT FLUID. DR. ANDERSON PACKED OPENING IN ROOM THEN WRAPPED EXTREMITY WITH TERE BANDAGE. VSS/AFEBRILE. HYPERTENSIVE, BUT REMAINS ON TREND WITH PREVIOUS PRESSURES. CPAP @ HS. NO ACUTE CHANGES NOTED OVERNIGHT. BED IN LOWEST POSITION. CALL LIGHT AND BELONGINGS WITHIN REACH. WCTM. REPORT TO ONCOMING RN.
[2019-12-12 08:51] LABS: Hematocrit 40.8 % (37.0-53.0); Mean Corpuscular HGB 28.4 pg (26.0-34.0); Mean Corpuscular HGB Conc 31.9 g/dL (31.5-36.5); Mean Corpuscular Volume 89 fL (80-100); Mean Platelet Volume 9.3 fL (9.1-12.4); Platelet Count 228 K/mm3 (150-400); RDW Coefficient Variation 13.9 % (11.7-14.2); RDW Standard Deviation 44.8 fL (35.1-46.3); Red Blood Cell Count 4.58 M/mm3 (4.30-5.90); White Blood Cell Count 7.66 K/mm3 (4.00-11.30)
[2019-12-12 09:05] LABS: International Normalized Ratio 1.12; Prothrombin Time Results 11.9 Sec (9.7-11.5)
[2019-12-12 09:10] LABS: Albumin, Blood 2.7 g/dL (3.4-5.0); Anion Gap 7 mmol/L (6-16); Blood Urea Nitrogen 33 mg/dL (8-24); Bun/Creatinine Ratio 20.6 (12.0-20.0); CO2, Blood 22 mmol/L (21-32); Calcium, Blood 8.3 mg/dL (8.5-10.1); Chloride, Blood 107 mmol/L (98-108); Glomerular Filtration Rate 46 (60-); Glucose, Blood 179 mg/dL (70-99); Phosphorus, Blood 3.4 mg/dL (2.5-4.9); Potassium, Blood 4.1 mmol/L (3.5-5.5); Sodium, Blood 136 mmol/L (136-145)
[2019-12-12 09:13] LABS: Vancomycin, Trough 26.7 ug/mL (5.0-10.0)
--- NOTE | 2019-12-12 18:39 | NUR ---
SHIFT SUMMARY PATIENT IS ALERT AND ORIENTED. HE CONVERTED FROM AFIB TO SINUS TODAY, AND HE HAS BEEN PLEASANT. HE IS ONE PERSON ASSIST FROM THE BED TO THE CHAIR. USES THE URINAL.
--- NOTE | 2019-12-13 04:41 | NUR ---
SHIFT SUMMARY PT HAS HAD NO ACUTE CHANGES THIS SHIFT, REPOS Q2 FOR COMFORT, MEDICATED 1X FOR "WARM TO TOUCH", 1X FOR RESTLESSNESS, PT HAD SM BM THIS SHIFT, PT APPEARS COMFORTABLE AT THIS TIME, CALL LIGHT IN REACH, WILL CONT TO MONITOR UNTIL REPORT GIVEN TO DAY RN.
[2019-12-13 05:39] LABS: Hemoglobin 12.2 g/dL (13.5-17.5); Mean Corpuscular HGB 28.8 pg (26.0-34.0); Mean Corpuscular HGB Conc 32.1 g/dL (31.5-36.5); Mean Corpuscular Volume 90 fL (80-100); Mean Platelet Volume 9.1 fL (9.1-12.4); Platelet Count 243 K/mm3 (150-400); RDW Coefficient Variation 13.8 % (11.7-14.2); RDW Standard Deviation 45.3 fL (35.1-46.3); Red Blood Cell Count 4.24 M/mm3 (4.30-5.90); White Blood Cell Count 6.82 K/mm3 (4.00-11.30)
[2019-12-13 05:53] LABS: International Normalized Ratio 1.19; Prothrombin Time Results 12.6 Sec (9.7-11.5)
[2019-12-13 05:57] LABS: Albumin, Blood 2.6 g/dL (3.4-5.0); Anion Gap 7 mmol/L (6-16); Blood Urea Nitrogen 31 mg/dL (8-24); Bun/Creatinine Ratio 21.4 (12.0-20.0); CO2, Blood 24 mmol/L (21-32); Calcium, Blood 8.3 mg/dL (8.5-10.1); Chloride, Blood 110 mmol/L (98-108); Creatinine, Blood 1.45 mg/dL (0.60-1.20); Glomerular Filtration Rate 51 (60-); Glucose, Blood 150 mg/dL (70-99); Phosphorus, Blood 3.3 mg/dL (2.5-4.9); Potassium, Blood 4.5 mmol/L (3.5-5.5); Sodium, Blood 141 mmol/L (136-145)
--- NOTE | 2019-12-13 12:18 | NUR ---
PT IS VERY THIN/FRAIL, SHE IS SOB @ REST, BIOX 90-93% 3L, SH EHAS BEEN COUGHING UP BROWN SPUTUM. SHE IS TREMULOUS. STATE CHR BACK & HIP PAIN THIS AM, PRN OXYCODONE 10MG GIVEN. SHE WAS SOMEWHAT ANXIOUS THIS AM, AFTER PAIN MED LETHARGIC. DR SHANE IN TO SEE HER STATE THAT THIS IS HER BASELINE, STATE TO LIMIT PAIN MEDICATION.
--- NOTE | 2019-12-13 19:42 | NUR ---
SUMMARY PT IS A/O X4, PLEASANT/COOPERATIVE. DX SEPSIS D/T L LEG INFECTION/CELLULITIS. LEG IS SWOLLEN, RED w NO OPEN AREAS/NO DRAINAGE. THIS AM HE HAD ADAM WHICH WAS NEGATIVE FOR SPREAD OF INFECTION. IV ANTIBX CONTINUE. VSS, PT AFEBRILE. HE STATE NO PAIN L LEG, HE IS ABLE TO STAND & BEAR WT w ASSIST TO CHAIR OR BSC. XLRG BM TODAY. HX AFIB, TELE MX REPORT PT HAS WENT BACK & FORTH FROM NSR TO AFIB X 2 TODAY, CURRENTLY NSR 70'S, HE IS ON WARFARIN.
[2019-12-13 20:10] LABS: Vancomycin, Trough 15.5 ug/mL (5.0-10.0)
--- NOTE | 2019-12-14 05:00 | NUR ---
SHIFT SUMMARY NO ACUTE CHANGES TO REPORT THIS SHIFT. LEFT LEG IS STILL PAINFUL WITH PALPATION AND MOVEMENT. AFFECTED AREA IS MAPPED, AND HAS NOT SPREAD PAST THE AREA MARKED. PT MEDICATED X1 FOR HEADACHE WITH AFFECT. BOWEL MOVEMENT THIS SHIFT. SBA TO BSC, WEIGHT BEARING. IV ABX INFUSED ORDERED. VITALS STABLE. RESTFUL NIGHT OVERALL. BED IN LOWEST POSITION, CALL LIGHT WITHIN REACH. WILL CONTINUE TO MONITOR AND REPORT TO ONCOMING RN.
[2019-12-14 05:46] LABS: International Normalized Ratio 1.15; Prothrombin Time Results 12.2 Sec (9.7-11.5)
--- NOTE | 2019-12-14 16:43 | NUR ---
SHIFT SUMMARY PT SEEN BY ORTHO. IV ANTIOBIOTICS CHANGED TO PO. PT MEDICATED FOR PAIN 2X THIS SHIFT SO FAR. PT UP IN CHAIR AT THIS TIME. BED BATH GIVEN THIS SHIFT. ULTRASOUND OF L KNEE COMPLETED. NO OTHER CHANGES IN ASSESSMENT AT THIS TIME. PT BP 98/82. WILL CONTINUE TO MONITOR UNTIL TURNOVER IS COMPLETE.
--- NOTE | 2019-12-14 18:26 | NUR ---
Patient gave permission for this skilled nursing case manager to provide care
--- NOTE | 2019-12-15 05:16 | NUR ---
SHIFT SUMMARY A/O, ABLE TO MAKE NEEDS KNOWN. COOPERATIVE WITH CARE. CALLS AND ANSWERS QUESTIONS APPROPRIATELY. C/O PAIN/DISCOMFORT TO LLE; MEDICATED PER EMAR. APPEARED TO REST MUCH OF NIGHT. CPAP @ HS. VSS/AFEBRILE. TELE RUNNING SR /c BBB IN 60S PER PCU INDIGO MIXER. NO ACUTE CHANGES NOTED OVERNIGHT. BED REMAINS IN LOWEST POSITION. CALL LIGHT AND BELONGINGS WITHIN REACH. WCTM. REPORT TO ONCOMING RN.
[2019-12-15 05:22] LABS: Hematocrit 41.3 % (37.0-53.0); Hemoglobin 13.1 g/dL (13.5-17.5); Mean Corpuscular HGB 28.6 pg (26.0-34.0); Mean Corpuscular HGB Conc 31.7 g/dL (31.5-36.5); Mean Corpuscular Volume 90 fL (80-100); Mean Platelet Volume 9.2 fL (9.1-12.4); Platelet Count 289 K/mm3 (150-400); RDW Coefficient Variation 13.8 % (11.7-14.2); RDW Standard Deviation 45.7 fL (35.1-46.3); Red Blood Cell Count 4.58 M/mm3 (4.30-5.90); White Blood Cell Count 7.62 K/mm3 (4.00-11.30)
[2019-12-15 05:41] LABS: International Normalized Ratio 1.23
[2019-12-15 05:52] LABS: Albumin, Blood 2.7 g/dL (3.4-5.0); Anion Gap 9 mmol/L (6-16); Blood Urea Nitrogen 25 mg/dL (8-24); Bun/Creatinine Ratio 18.9 (12.0-20.0); CO2, Blood 19 mmol/L (21-32); Calcium, Blood 8.5 mg/dL (8.5-10.1); Chloride, Blood 112 mmol/L (98-108); Creatinine, Blood 1.32 mg/dL (0.60-1.20); Glomerular Filtration Rate 57 (60-); Glucose, Blood 136 mg/dL (70-99); Phosphorus, Blood 3.2 mg/dL (2.5-4.9); Potassium, Blood 4.8 mmol/L (3.5-5.5); Sodium, Blood 140 mmol/L (136-145)
--- NOTE | 2019-12-15 11:30 | NUR ---
BLOOD SUGAR AT 1130. PT BLOOD SUGAR AT 1130 WAS 221. CBG MACHINE FAILED TO SEND
--- NOTE | 2019-12-15 12:14 | NUR ---
HEART RHYTHM PT CONVERTED TO AFIB AND STAYED THERE FROM [id number]. RATE 80-90. PT NOW BACK IN SINUS AT 77 PER MANAGER ECONOMIC.
--- NOTE | 2019-12-15 13:38 | NUR ---
PT DIZZY PT STATES HE IS DIZZY. VSS. PT EDUCATED TO STAY LAYING IN BED UNTIL DIZZY SPELL IS OVER.
--- NOTE | 2019-12-15 15:07 | NUR ---
PERMISSION TO GIVE MEDICATIONS ALAM Nicolas, A STUDENT NURSE, RECEIVED PERMISSION TO GIVE MEDICATIONS ON 12-15-2019
--- NOTE | 2019-12-15 17:14 | NUR ---
CHEST PAIN PT C/O CHEST PAIN. DESCRIBES IT PRESSURE. DR. JOHNS NOTIFIED. EKG ORDERED. NITROGLYCERIN ORDERED. WILL GIVE FIRST DOSE WHEN VERIFIED.
--- NOTE | 2019-12-15 17:33 | NUR ---
CALF MEASUREMENT L CALF MEASURING AT 46.5 CM
--- NOTE | 2019-12-15 17:59 | NUR ---
SHIFT SUMMARY-CP GONE PT C/O CHEST PAIN THIS SHIFT. SEEN NOTE. EKG OBTAINED. ONE DOSE NITRO GIVEN. PT STATES PAIN IS IMPROVED AND GOING AWAY NOW. PT MEDICATED FOR PAIN THROUGHOUT SHIFT. SEE EMAR. PG PLACED THIS SHIFT. NO OTHER CHANGES IN ASSESSMENT AT THIS TIME. VSS. WILL CONTINUE TO MONITOR UNTIL TURNOVER IS OVER.
--- NOTE | 2019-12-15 18:01 | NUR ---
PERMISSION THE PATIENT GAVE ME PERMISSION ON 12/15/2019 TO BE INVOLVED IN HIS CARE ON 12/16/2019 DURING [id number] CLINICAL TIME.
--- NOTE | 2019-12-15 22:32 | NUR ---
LEFT CALF MEASUREMENT 46.6 CM
--- NOTE | 2019-12-16 05:11 | NUR ---
SHIFT SUMMARY PATIENT HAD NO ACUTE CHANGES OBSERVED THIS SHIFT. AXOX 4 AND ONE ASSIST TO BSC. PLAYING CARDS WITH FAMILY AT SHIFT CHANGE. POWERGLIDE EDITH INTACT. USES URINAL AT BEDSIDE. MOTOR AND GENERATOR BRUSH MAKER REPORTS NSR BBB @66. DENIES PAIN, SOB, AND N/V. TAKES MEDICATION WHOLE WITH WATER. USES CPAP AT NIGHT ON CONTINUOUS PULSE OXIMETRY. RT PUT PATIENT ON 2L O2 STATING 85-89% ON RA AND NOW 93%. LEFT CALF MEASURING 46.5 CM. COOPERATIVE WITH CARE. CALL LIGHT IN REACH. BED IN LOWEST POSITION. WILL CONTINUE TO MONITOR UNTIL DAY SHIFT NURSE ASSUMES CARE.
[2019-12-16 05:19] LABS: BASOPHILS ABSOLUTE AUTO 0.05 K/mm3 (0.00-0.23); BASOPHILS PERCENT AUTO 1 % (0-2); EOSINOPHILS PERCENT AUTO 5 % (0-6); Hematocrit 41.2 % (37.0-53.0); IMMATURE GRAN ABSOLUTE AUTO 0.22 K/mm3 (0.00-0.10); IMMATURE GRAN PERCENT AUTO 5 % (0-1); LYMPHOCYTES ABSOLUTE AUTO 0.72 K/mm3 (0.84-5.20); LYMPHOCYTES PERCENT AUTO 17 % (21-46); MONOCYTES ABSOLUTE AUTO 0.22 K/mm3 (0.16-1.47); MONOCYTES PERCENT AUTO 5 % (4-13); Mean Corpuscular HGB Conc 31.6 g/dL (31.5-36.5); Mean Corpuscular Volume 89 fL (80-100); Mean Platelet Volume 8.8 fL (9.1-12.4); NEUTROPHILS ABSOLUTE AUTO 2.86 K/mm3 (1.96-9.15); NEUTROPHILS PERCENT AUTO 67 % (41-73); Platelet Count 305 K/mm3 (150-400); RDW Coefficient Variation 13.8 % (11.7-14.2); RDW Standard Deviation 45.1 fL (35.1-46.3); Red Blood Cell Count 4.64 M/mm3 (4.30-5.90); White Blood Cell Count 4.27 K/mm3 (4.00-11.30)
[2019-12-16 05:31] LABS: International Normalized Ratio 1.53
[2019-12-16 05:57] LABS: Albumin, Blood 2.8 g/dL (3.4-5.0); Albumin/Globulin Ratio 0.7 (0.8-1.8); Bilirubin, Total 0.6 mg/dL (0.1-1.0); Bun/Creatinine Ratio 14.9 (12.0-20.0); Calcium, Blood 8.8 mg/dL (8.5-10.1); Creatinine, Blood 1.61 mg/dL (0.60-1.20); Globulin, Blood 3.8 g/dL (2.2-4.0); Potassium, Blood 5.2 mmol/L (3.5-5.5); Total Protein, Blood 6.6 g/dL (6.4-8.2)
[2019-12-16 06:06] LABS: BAND PERCENT MAN 3 % (0-8); BASOPHILS ABSOLUTE MAN 0.08 K/mm3 (0.00-0.23); BASOPHILS PERCENT MAN 2 % (0-2); EOSINOPHILS ABSOLUTE MAN 0.34 K/mm3 (0.00-0.68); EOSINOPHILS PERCENT MAN 8 % (0-6); LYMPHOCYTES ABSOLUTE MAN 0.81 K/mm3 (0.84-5.20); LYMPHOCYTES PERCENT MAN 19 % (21-46); METAMYELOCYTE ABSOLUTE MAN 0.04 K/mm3 (0.00-0.00); METAMYELOCYTE PERCENT MAN 1 % (0-0); MONOCYTES ABSOLUTE MAN 0.25 K/mm3 (0.16-1.47); MONOCYTES PERCENT MAN 6 % (4-13); MYELOCYTE ABSOLUTE MAN 0.04 K/mm3 (0.00-0.00); MYELOCYTE PERCENT MAN 1 % (0-0); NEUTROPHILS ABSOLUTE MAN 2.69 K/mm3 (1.96-9.15); SEG NEUTROPHILS PERCENT MAN 60 % (41-73); TOTAL CELLS COUNTED 100
--- NOTE | 2019-12-16 12:25 | NUR ---
Spiritual care visit conducted. Patient is lying in bed and resting. Patient easily awakens to the sound of his name. Patient does mention upfront that he is extremely tired so I keep my visit brief. Patient tells me that he and his are managing and taking it one day at a time one day at a time. I provide prayer for patient and patient thanks me for the visit. Patient is snoring by the time I get the PPE off and reach the door.
--- NOTE | 2019-12-16 13:43 | NUR ---
Multiple attmepts made to visit pt to discuss his code status wishes and complete an updated POLST. Multiple staff in room each time, store director, nursing, Will try again later.
--- NOTE | 2019-12-16 14:15 | NUR ---
HE IS NAPPING RIGHT NOW BUT WAS UP IN THE CHAIR MOST OF THE MORNING. HE WEARS 2L O2. ADMITTED TO SLIGHT SOB WHEN ASKED. TELE IS NSR WITH BBB. LEFT CALF MEASUREMENT IS 18 IN. L KNEE IS RED WITH A SCAB. L LOWER LEG RED. HE FEELS BETTER AND HOPES TO GO HOME SOON. THE DRESSING WAS CHANGED ON HIS L ARM PG TODAY.IT WAS NOTED THIS AM THAT HE HAS TERRIBLE YEAST RASH IN FOLDS THIS AM WHEN HE WAS BATHED. WILL START NYSTATIN POWJacksonWER. I JUST ASKED DR. JOHNS WHEN SHE WALKED BY.
--- NOTE | 2019-12-16 19:31 | NUR ---
NOTIFIED THIS EVENING THAT HIS RHYTHM CHANGED TO HIS AFIB ABOUT 1640 TODAY. RATE IS CONTROLLED IN THE 70'S AND 80'S. CONTACT ISOLATION CONTINUES FOR MRSA INFECTION. 2L NC ALL DAY. CONTINUOUS BIOX ON. PG DRESSING CHANGED. HE HAS NO COMPLAINTS. HE IS A LITTLE WEAK AND A LITTLE SOB.
--- NOTE | 2019-12-17 05:01 | NUR ---
SHIFT SUMMARY: VSS. A/OX3. MAKES NEEDS KNOWN AND CALLING APPROPRIATELY FOR ASSIST. L KNEE WITHOUT ERYTHEMA. L CALF CONT TO BE HOT TO TOUCH, RED, AND PAINFUL. PT MED X1 WITH PRN ANALGESIC FOR LLE PAIN. HAS SLEPT WELL SINCE. PT NOTED TO BE BREATHING HEAVILY THROUGH MOUTH WHILE WEARING CPAP, 02 SATS HOVERING AROUND 88% WITH CPAP NOSE MASK ON. RT CONTACTED. 02 BLEED IN ADDED. SATS CONT BETWEEN 88-92%. NO ACUTE CHANGES OVERNIGHT. WILL CONT TO MONITOR.
[2019-12-17 05:43] LABS: BASOPHILS ABSOLUTE AUTO 0.08 K/mm3 (0.00-0.23); BASOPHILS PERCENT AUTO 2 % (0-2); EOSINOPHILS PERCENT AUTO 4 % (0-6); Hematocrit 38.5 % (37.0-53.0); Hemoglobin 12.4 g/dL (13.5-17.5); IMMATURE GRAN PERCENT AUTO 2 % (0-1); LYMPHOCYTES ABSOLUTE AUTO 1.15 K/mm3 (0.84-5.20); LYMPHOCYTES PERCENT AUTO 23 % (21-46); MONOCYTES ABSOLUTE AUTO 0.41 K/mm3 (0.16-1.47); MONOCYTES PERCENT AUTO 8 % (4-13); Mean Corpuscular HGB 28.7 pg (26.0-34.0); Mean Corpuscular HGB Conc 32.2 g/dL (31.5-36.5); Mean Corpuscular Volume 89 fL (80-100); NEUTROPHILS PERCENT AUTO 61 % (41-73); Platelet Count 276 K/mm3 (150-400); RDW Coefficient Variation 13.8 % (11.7-14.2); RDW Standard Deviation 45.2 fL (35.1-46.3); Red Blood Cell Count 4.32 M/mm3 (4.30-5.90); White Blood Cell Count 4.94 K/mm3 (4.00-11.30)
[2019-12-17 05:58] LABS: International Normalized Ratio 1.89; Prothrombin Time Results 19.5 Sec (9.7-11.5)
[2019-12-17 06:03] LABS: Albumin, Blood 2.6 g/dL (3.4-5.0); Albumin/Globulin Ratio 0.7 (0.8-1.8); Bilirubin, Total 0.4 mg/dL (0.1-1.0); Bun/Creatinine Ratio 16.6 (12.0-20.0); Calcium, Blood 8.5 mg/dL (8.5-10.1); Creatinine, Blood 1.63 mg/dL (0.60-1.20); Globulin, Blood 3.9 g/dL (2.2-4.0); Potassium, Blood 4.7 mmol/L (3.5-5.5); Total Protein, Blood 6.5 g/dL (6.4-8.2)
--- NOTE | 2019-12-17 16:05 | NUR ---
PT IS A/OX3, PLEASANT AND COOPERATIVE, THE PT IS UP WITH MINIMAL ASSIST TO THE CHAIR, THE PTS LEFT CALF THIS AM MEASURED 18.7 CM IN CIRCUMFRENCE, THE PT WORKED WITH BOTH THE PHYSICAL AND OCCUPATIONAL THERAPIST TODAY, THE PT IS UP IN THE RECLINER CHAIR AT THIS TIME, APPEARS TO BE BREATHING EASILY AT REST, THE PT WAS MEDICATED FOR PAIN T/O THE DAY, CALL LIGHT IN REACH, WILL CONTINUE TO MONITOR AND ASSESS FOR CHANGES
--- NOTE | 2019-12-17 17:40 | NUR ---
Palliative Care Consuslt for AD/POLST and Advanced Care Planning. Pt resting in recliner chair upon arrival. Pt reports a tolerable 5/10 pain in his leg and shoulders. Pt reports mild but manageable dyspnea due to exertion just prior to this RN arriving. Pt denies nausea at this time. Pt does report intermittent anxiety due to life and personal issues. Pt lives at home with his . Pt reports having children all of whom live out of state. Some live in [place] and one lives in [facility]. Engaged in discussion and education regarding disease process of COPD and CHF. Educated on the importance of compliance, routine conversations with PCP and specialists regarding disease process in order to plan accordingly. Engaged in discussion regarding code status and POLST currently on file. Pt current code status is Full Code and POLST on file is DNR with Limited Treatment. Pt reports he did not completing understand when he completed previous POLST and states he would not life sustaining measures jail and in grim situations. Pt reports for acute events he would like everything done and would like to complete a new POLST. Educated Pt on life sustaining measures, risk factors and implications with V/U made by Pt. Assisted Pt with completing new POLST. Pt chooses Full Code and Full Treatment. Provided Pt with an advanced directive and educated on the importance of having a healthcare representive. Educated on each section to complete and the life sustaining measures for each scenario with V/U made by Pt. Pt reports he will discuss further with his . No other concerns reported at this time. Spoke with bedside RN Devang and discussed case. Palliative Care will obtain copy on new POLST once hospitalist signs and fax to medical records.
--- NOTE | 2019-12-18 05:18 | NUR ---
SHIFT SUMMARY: VSS. AFEB. A/OX4. COMMUNICATES NEEDS. WEARING CPAP AT HS WITH 4L 02 BLEED IN TO KEEP SATS AT 90%. STATES ANALGESIC ADMINISTERED RIGHT BEFORE NOC SHIFT HELPED LLE PAIN AND HAS NOT REQUESTED ANY FURTHER PRN PAIN MED. LLE NO LONGER HOT TO TOUCH, MUCH LESS TENDER WITH PALPATION, CONT TO BE RED. PT STATES KNEE FEELS BACK TO BASELINE. SLEPT MOST OF THE NIGHT. NO ACUTE CHANGES. BED LOW, CALL BUTTON IN REACH. WILL CONT TO MONITOR.
[2019-12-18 05:38] LABS: International Normalized Ratio 2.57; Prothrombin Time Results 26.1 Sec (9.7-11.5)
--- NOTE | 2019-12-18 13:07 | NUR ---
Mr Gorge is resting having some dyspnea at rest. Briefly reviewed symptoms and needs processed a new polst faxed to medical records original given to him with copies and insructions on where to leave it in his home for EMS.
[2019-12-18 15:49] LABS: Vancomycin, Random 22.3 ug/mL
--- NOTE | 2019-12-18 16:59 | NUR ---
PT IS A/O X3, PLEASANT AND COOPERATIVE, THE PT IS UP WITH MODERATE ASSIST USEING THE FWW, THE PT WAS MEDICATED FOR LEFT LEG PAIN T/O THE DAY, PT APPEARS TO BE BREATHING EASILY AT REST ON 3L/MIN O2 AT THIS TIME, THE PT IS SOB WITH MINIMAL ACTIVITY, PTS L CALF MEASUREMENT WAS AT 7 1/2 INCHES CIRCUMFRENCE TODAY, PTS IS AT THE BEDSIDE, PT IS UP IN THE CHAIR AT THIS TIME, AND HAS BEEN IN THE RECLINER MOST OF THE DAY, CALL LIGHT IN REACH WILL CONTINUE TO MONITOR AND ASSESS FOR CHANGES
--- NOTE | 2019-12-19 05:25 | NUR ---
SHIFT SUMMARY PT HAD NO NEW ISSUES NOTED THIS SHIFT. PT HAS SLEPT OFF AND ON T/O SHIFT. PT USES CPAP WHEN SLEEPING AND NC WHEN AWAKE. PT IS CURRENTLY AWAKE WATCHING TV IN NO DISTRESS. CALL LIGHT IN REACH.
[2019-12-19 05:53] LABS: International Normalized Ratio 2.67
[2019-12-19 08:21] LABS: Bun/Creatinine Ratio 18.3 (12.0-20.0); Calcium, Blood 8.5 mg/dL (8.5-10.1); Creatinine, Blood 1.91 mg/dL (0.60-1.20); Potassium, Blood 5.1 mmol/L (3.5-5.5)
--- NOTE | 2019-12-19 09:21 | NUR ---
PCU FAMILY LITERACY COORDINATOR CALLED TO REPORT THAT PT HAD CONVERTED TO A-FIB. PT IS UP IN CHAIR RESTING AND ASYMPTOMATIC. DR CORLEY NOTIFIED AND GAVE NO NEW ORDERS. NURSING WILL CONTINUE TO MONITOR.
--- NOTE | 2019-12-19 15:33 | NUR ---
SHIFT SUMMARY PT IS A/O X 4 WITH NO C/O PAIN. HE HAS DYSPNEA ON EXCERTION BUT REPORTS THIS IS NOT NEW. PT REMAINS ON 2 LPM AND CPAP WHILE SLEEPING. LEFT KNEE HAS A SCAB BUT NO S/S OF INFECTION, THE LEFT CALF HOWEVER, REMAINS WARM, SWOLLEN AND TENDER TO THE TOUCH. CBGS HAVE BEEN COVERED WITH INSULIN ORDERED AND PT HAS NO S/S OF HYPER/HYPO GLYCEMIA. PT HAS BEEN UP TO THE RECLINER ALL DAY AND WAS ABLE TO WORK WITH THERAPIES THIS MORNING. HIS HAS BEEN AT THE BEDSIDE PLAYING CARD GAMES WITH HIM MOST OF THE SHIFT. PT IS RESTING NOW. UA IS PENDING HIM VOIDING. PT IS ABLE TO MAKE HIS NEEDS KNOWN. CALL LIGHT IN REACH.
[2019-12-19 15:50] LABS: Source, Urine Voided
[2019-12-19 15:55] LABS: Appearance, Urine Clear (Clear); Bilirubin, Urine Neg (Neg); Blood, Urine 1+ (Neg); Color, Urine Yellow (P-Yellow); Glucose Qualitative, Urine Neg (Neg); Ketones, Urine Neg (Neg); Leukocyte Esterase, Urine Neg (Neg); Nitrite, Urine Neg (Neg); Protein, Urine 3+ (Neg); Specific Gravity, Urine 1.015 (1.003-1.022); Urobilinogen, Urine NORM (Normal)
[2019-12-19 16:09] LABS: Bacteria Rare /hpf; Red Blood Cells, Urine 0-2 /hpf (0-2); Squamous Epithelial Cells Rare /hpf (Few); White Blood Cells, Urine 0-2 /hpf (0-5)
--- NOTE | 2019-12-20 02:23 | NUR ---
LEFT CALF MEASUREMENT: 16.75 INCHES
--- NOTE | 2019-12-20 04:14 | NUR ---
SHIFT SUMMARY PATIENT HAD NO ACUTE CHANGES. AXOX 3 AND ONE ASSIST TO BR. CBG 141. POWERGLIDE EDITH INTACT. IV ABX INFUSED. DENIES PAIN, SOB, AND N/V. VSS/AFEBRILE. EDGE DYER REPORTS SR BBB AT 61. USES CPAP AT NIGHT WITH 6L O2 AND USES 2L O2 NC DURING DAY. LEFT CALF MEASUREMENT 16.75 INCHES. CALL LIGHT IN REACH. BED IN LOWEST POSITION. WILL CONTINUE TO MONITOR UNTIL DAY SHIFT NURSE ASSUMES CARE.
[2019-12-20 06:45] LABS: International Normalized Ratio 2.57; Prothrombin Time Results 26.1 Sec (9.7-11.5)
[2019-12-20 16:04] LABS: Bun/Creatinine Ratio 20.6 (12.0-20.0); Calcium, Blood 8.9 mg/dL (8.5-10.1); Creatinine, Blood 1.65 mg/dL (0.60-1.20); Potassium, Blood 5.1 mmol/L (3.5-5.5)
--- NOTE | 2019-12-20 18:41 | NUR ---
No acute changes noted. No current complaints of pain or discomfort at this time. Patient has two small lumps on his left inner thigh that he stated were a little sore this afternoon. The patient left leg is still a redish color but not as painful as it has been. No other issues noted at this time. Will continue to monitor for changes.
--- NOTE | 2019-12-21 04:57 | NUR ---
SHIFT SUMMARY PT HAD NO NEW ISSUES NOTED. PT HAS SLEPT T/O SHIFT OCCASIONALY WAKING TO WATCH TV. PT DISCOMFORT TX PER EMAR. PT CURRENTLY AWAKE WATCHING TV AND BREATHING EASY. CALL LIGHT IN REACH.
[2019-12-21 05:51] LABS: International Normalized Ratio 2.43; Prothrombin Time Results 24.7 Sec (9.7-11.5)
--- NOTE | 2019-12-21 15:04 | NUR ---
Spiritual care visit conducted. Patient is sitting on chair and alert. Patient is emotional today. He shares about his personal struggles, about how bad he wants to go home and how hard this 2 wk hospital stay has been on his . Patient tells me about what the current medical plan is and how he has progressed. I listen empathically, highlight the good that has happened and will continue to happen and I provide pastoral family court counsellor and prayer. Patient responds well and is clearly moved with emotion by the prayer. I will continue to remain available to patient and family.
--- NOTE | 2019-12-21 17:00 | NUR ---
SHIFT SUMMARY PT AXO, PLEASANT AND COOPERATIVE WITH CARE. VSS. PT 94% ON 2L. HOME O2 EVAL COMPLETED THIS SHIFT. SEE RT NOTE. PT WILL REQUIRE 2L VIA NC AT HOME PER RT VERBAL REPORT. PT MEDICATED FOR PAIN PER EMAR FOR WIDESPREAD PAIN/ JOINT PAIN. L. CALF MEASURED, 17.25 INCHES IN DIAMETER. SEE ASSESSMENT. PT EAGER TO BE DISCHARGED HOME. PT UP TO CHAIR FOR MOST OF THE DAY. BED IN LOW POSITION, CALL LIGHT WITHIN REACH.
--- NOTE | 2019-12-21 20:26 | NUR ---
12/21/19 0805 POWER GLIDE IN LEFT UPPER ARM DOES FLUSH WELL BUT NOT DRAW BLOOD. LAB NOTIFIED FOR BLOOD DRAW.
[2019-12-21 21:22] LABS: Vancomycin, Trough 19.5 ug/mL (5.0-10.0)
[2019-12-22 05:59] LABS: International Normalized Ratio 2.19; Prothrombin Time Results 22.4 Sec (9.7-11.5)
--- NOTE | 2019-12-22 06:35 | NUR ---
12/22/19 0625 ASSISTED UP TO BR FOR VOIDING AND LARGE BROWN BM. EXERTIONAL DYSPNEA NOTED. ASSISTED BACK TO BED AND C/O HEADACHE. MEDICATED PER JAN. VITALS REMAIN STABLE. VOIDING QS CLEAR YELLOW URINE.
[2019-12-22] MEDS ORDERED: WARF7.5 PO ×2 (11:55)
[2019-12-22] MEDS ORDERED: HUMULIN 70100 UNIT/2 SQ ×2 (12:04)
[2019-12-22] MEDS ORDERED: ACET325 PO ×2 (12:07)
[2019-12-22] MEDS ORDERED: DOCU100 PO ×2 (12:08)
[2019-12-22] MEDS ORDERED: Culturelle1 CAP PO ×2 (12:09)
[2019-12-22] MEDS ORDERED: Pedi-Dri 100,0060 GM TOP ×2 (12:11)
--- NOTE | 2019-12-22 18:15 | NUR ---
DISCHARGE INSTRUCTIONS COMPLETED AND DISCUSSED WITH PTS EXPRESSING UNDERSTANDING. PT LISTENING IN BUT REPORTS "KEEPS TRACK OF SUCH ITEMS" ATE SUPPER AND WAS DISCHARGE AFTER VANCOMYCIN GIVEN. HAS HAD NO RESP DISTRESS THROGUH DAY. TO [facility] VIA W/C.
== END 2019-12-22 18:04 | disposition home health service (06) | DRG 872 ==
LOC: ER 12:21 → PCU 16:18 → MEDS 16:18 → PCU 19:23 → MEDS 12-09 15:18 → ENPENDDIS 12-22 09:26 → MEDS 12-22 18:04
PROVIDERS: Hospitalist; Internal Medicine; Nurse Practitioner Acute Care; Pharmacist Pharmacotherapy; Physician Assistant; ADMIT Internal Medicine
PROC: 0S9D3ZX Drainage of Left Knee Joint, Percutaneous Approach, Diagnostic (ICD-10-PCS; principal; 2019-12-10)
DX: A41.02 Sepsis due to Methicillin resistant Staphylococcus aureus (principal); L03.116 Cellulitis of left lower limb; L02.419 Cutaneous abscess of limb, unspecified; N17.9 Acute kidney failure, unspecified; L02.416 Cutaneous abscess of left lower limb; I13.0 Hypertensive heart and chronic kidney disease with heart failure and stage 1 through stage 4 chronic kidney disease, or unspecified chronic kidney disease; I50.32 Chronic diastolic (congestive) heart failure; Z68.42 Body mass index [BMI] 45.0-49.9, adult; J44.9 Chronic obstructive pulmonary disease, unspecified; G47.33 Obstructive sleep apnea (adult) (pediatric); F41.1 Generalized anxiety disorder; G89.4 Chronic pain syndrome; I48.0 Paroxysmal atrial fibrillation; E66.01 Morbid (severe) obesity due to excess calories; N18.3 Chronic kidney disease, stage 3 (moderate); E11.22 Type 2 diabetes mellitus with diabetic chronic kidney disease; R09.02 Hypoxemia; E78.5 Hyperlipidemia, unspecified; Z79.01 Long term (current) use of anticoagulants; I25.10 Atherosclerotic heart disease of native coronary artery without angina pectoris; K21.9 Gastro-esophageal reflux disease without esophagitis; E11.42 Type 2 diabetes mellitus with diabetic polyneuropathy; Z87.891 Personal history of nicotine dependence; N40.0 Benign prostatic hyperplasia without lower urinary tract symptoms; F32.9 Major depressive disorder, single episode, unspecified
CPT/HCPCS: 36415; 71046; 73700; 76770; 76882; 80048; 80053; 80069; 80202; 81001; 82565; 82947; 83605; 84484; 84550; 85025; 85027; 85610; 85651; 86140; 87040; 87070; 87075; 87077; 87147; 87186; 87205; 93005; 93010; 93306; 93312; 93325; 93971; 94640; 94760; 94761; 94762; 96365; 96366; 96367; 97110; 97116; 97161; 97165; 97530; 97535; 99152; 99285-25; A9270; A9270-GY; J0690; J0696; J1815; J2250; J2310; J3010; J3370; J7030; J7040; J7050

== ENCOUNTER 2019-12-23 00:10 | Day surgery (SDC) | payer MEDICARE, OTHER ==
[~2019-12-23 00:10] MED LIST changes: +ACET325 PO; +ALBU90OI6 INH; +AMLODIPINE BESY10 MG PO; +ATOR40TA PO; +BUPR150ER PO; +Budesonide0.5 MG/2 M NEB; +Culturelle1 CAP PO; +Duoneb 2.5-0.5 M3 ML NEB; +GABA300 PO; +GLIP10 PO; +Glucophage1000 MG PO; +HUMULIN 70100 UNIT/2 SC; +HUMULIN 70100 UNIT/2 SQ; +LOSARTAN POTAS100 MG PO; +METO25ER PO; +PARO20 PO; +Pedi-Dri 100,0060 GM TOP; +TAMS.4ER PO
== END 2019-12-23 22:55 | disposition home or self-care (01) ==
LOC: ATC 00:10
DX: A41.9 Sepsis, unspecified organism (principal); L03.116 Cellulitis of left lower limb; J44.9 Chronic obstructive pulmonary disease, unspecified; G47.33 Obstructive sleep apnea (adult) (pediatric); I48.91 Unspecified atrial fibrillation; F41.1 Generalized anxiety disorder; G89.4 Chronic pain syndrome; E11.51 Type 2 diabetes mellitus with diabetic peripheral angiopathy without gangrene; I13.0 Hypertensive heart and chronic kidney disease with heart failure and stage 1 through stage 4 chronic kidney disease, or unspecified chronic kidney disease; I50.9 Heart failure, unspecified; E11.22 Type 2 diabetes mellitus with diabetic chronic kidney disease; N18.3 Chronic kidney disease, stage 3 (moderate); Z99.89 Dependence on other enabling machines and devices; Z88.0 Allergy status to penicillin; Z88.8 Allergy status to other drugs, medicaments and biological substances
CPT/HCPCS: 96374; J3370; J7050

== ENCOUNTER 2019-12-23 22:18 | Emergency (ER) | payer MEDICARE, OTHER ==
[~2019-12-23] VITALS: Ht 180.3 cm; Wt 158.8 kg
[2019-12-23 23:11] LABS: BASOPHILS ABSOLUTE AUTO 0.06 K/mm3 (0.00-0.23); BASOPHILS PERCENT AUTO 1 % (0-2); EOSINOPHILS ABSOLUTE AUTO 0.08 K/mm3 (0.00-0.68); EOSINOPHILS PERCENT AUTO 2 % (0-6); Hematocrit 40.7 % (37.0-53.0); Hemoglobin 13.1 g/dL (13.5-17.5); IMMATURE GRAN ABSOLUTE AUTO 0.03 K/mm3 (0.00-0.10); IMMATURE GRAN PERCENT AUTO 1 % (0-1); LYMPHOCYTES ABSOLUTE AUTO 1.06 K/mm3 (0.84-5.20); LYMPHOCYTES PERCENT AUTO 19 % (21-46); MONOCYTES ABSOLUTE AUTO 1.17 K/mm3 (0.16-1.47); MONOCYTES PERCENT AUTO 22 % (4-13); Mean Corpuscular HGB 28.2 pg (26.0-34.0); Mean Corpuscular HGB Conc 32.2 g/dL (31.5-36.5); Mean Corpuscular Volume 88 fL (80-100); Mean Platelet Volume 8.8 fL (9.1-12.4); NEUTROPHILS ABSOLUTE AUTO 3.05 K/mm3 (1.96-9.15); NEUTROPHILS PERCENT AUTO 56 % (41-73); Platelet Count 326 K/mm3 (150-400); RDW Coefficient Variation 13.5 % (11.7-14.2); RDW Standard Deviation 43.7 fL (35.1-46.3); Red Blood Cell Count 4.64 M/mm3 (4.30-5.90); White Blood Cell Count 5.45 K/mm3 (4.00-11.30)
[2019-12-23 23:29] LABS: Alanine Aminotransfer (ALT/SGP 34 U/L (12-78); Albumin, Blood 3.1 g/dL (3.4-5.0); Albumin/Globulin Ratio 0.8 (0.8-1.8); Alk Phos 75 U/L (50-136); Anion Gap 4 mmol/L (6-16); Aspartate Aminotrans (AST/SGOT 27 U/L (12-37); Bilirubin, Total 0.6 mg/dL (0.1-1.0); Blood Urea Nitrogen 26 mg/dL (8-24); Bun/Creatinine Ratio 16.5 (12.0-20.0); CO2, Blood 24 mmol/L (21-32); Calcium, Blood 8.9 mg/dL (8.5-10.1); Chloride, Blood 109 mmol/L (98-108); Creatinine, Blood 1.58 mg/dL (0.60-1.20); Globulin, Blood 4.1 g/dL (2.2-4.0); Glomerular Filtration Rate 46 (60-); Glucose, Blood 183 mg/dL (70-99); Potassium, Blood 4.5 mmol/L (3.5-5.5); Sodium, Blood 137 mmol/L (136-145); Total Protein, Blood 7.2 g/dL (6.4-8.2); Troponin I <0.015 ng/mL (0.000-0.040)
== END 2019-12-24 01:33 | disposition home or self-care (01) ==
LOC: ER 22:18
PROVIDERS: Emergency Medicine
DX: R53.1 Weakness (principal); E11.9 Type 2 diabetes mellitus without complications; M19.90 Unspecified osteoarthritis, unspecified site; I25.2 Old myocardial infarction; I48.91 Unspecified atrial fibrillation; I11.0 Hypertensive heart disease with heart failure; I50.9 Heart failure, unspecified; Z88.0 Allergy status to penicillin; Z88.1 Allergy status to other antibiotic agents; Z88.8 Allergy status to other drugs, medicaments and biological substances; Z79.4 Long term (current) use of insulin; Z79.899 Other long term (current) drug therapy; Z79.01 Long term (current) use of anticoagulants; Z87.891 Personal history of nicotine dependence
CPT/HCPCS: 36415; 71046; 80053; 83605; 84484; 85025; 93005; 93010; 96361; 96374; 96375; 99284-25; J1170; J2405; J7030

== ENCOUNTER 2019-12-24 00:21 | Day surgery (SDC) | payer MEDICARE, OTHER | END 2019-12-24 17:06 | disposition home or self-care (01) | LOC: ATC 00:21 | DX: A41.9 Sepsis, unspecified organism (principal); L03.116 Cellulitis of left lower limb; E11.22 Type 2 diabetes mellitus with diabetic chronic kidney disease; E11.42 Type 2 diabetes mellitus with diabetic polyneuropathy; J44.9 Chronic obstructive pulmonary disease, unspecified; G47.33 Obstructive sleep apnea (adult) (pediatric); I13.0 Hypertensive heart and chronic kidney disease with heart failure and stage 1 through stage 4 chronic kidney disease, or unspecified chronic kidney disease; I48.0 Paroxysmal atrial fibrillation; G89.4 Chronic pain syndrome; K21.9 Gastro-esophageal reflux disease without esophagitis; N18.3 Chronic kidney disease, stage 3 (moderate); I50.9 Heart failure, unspecified; Z99.89 Dependence on other enabling machines and devices; Z79.01 Long term (current) use of anticoagulants; Z88.0 Allergy status to penicillin; Z88.8 Allergy status to other drugs, medicaments and biological substances | CPT/HCPCS: 96365; 96366; J3370; J7050 ==

== ENCOUNTER 2020-01-01 16:42 | Emergency (ER) | payer MEDICARE, OTHER ==
[~2020-01-01] VITALS: Ht 180.3 cm; Wt 140.6 kg
[2020-01-01 17:12] LABS: BASOPHILS ABSOLUTE AUTO 0.04 K/mm3 (0.00-0.23); BASOPHILS PERCENT AUTO 1 % (0-2); EOSINOPHILS ABSOLUTE AUTO 0.29 K/mm3 (0.00-0.68); EOSINOPHILS PERCENT AUTO 5 % (0-6); Hematocrit 44.5 % (37.0-53.0); Hemoglobin 14.4 g/dL (13.5-17.5); IMMATURE GRAN ABSOLUTE AUTO 0.01 K/mm3 (0.00-0.10); IMMATURE GRAN PERCENT AUTO 0 % (0-1); LYMPHOCYTES ABSOLUTE AUTO 1.73 K/mm3 (0.84-5.20); LYMPHOCYTES PERCENT AUTO 30 % (21-46); MONOCYTES ABSOLUTE AUTO 0.39 K/mm3 (0.16-1.47); MONOCYTES PERCENT AUTO 7 % (4-13); Mean Corpuscular HGB 28.2 pg (26.0-34.0); Mean Corpuscular HGB Conc 32.4 g/dL (31.5-36.5); Mean Corpuscular Volume 87 fL (80-100); NEUTROPHILS PERCENT AUTO 58 % (41-73); Platelet Count 296 K/mm3 (150-400); RDW Coefficient Variation 13.7 % (11.7-14.2); RDW Standard Deviation 44.1 fL (35.1-46.3); Red Blood Cell Count 5.11 M/mm3 (4.30-5.90); White Blood Cell Count 5.86 K/mm3 (4.00-11.30)
[2020-01-01 17:31] LABS: Alanine Aminotransfer (ALT/SGP 47 U/L (12-78); Albumin, Blood 3.6 g/dL (3.4-5.0); Albumin/Globulin Ratio 0.8 (0.8-1.8); Alk Phos 76 U/L (50-136); Anion Gap 7 mmol/L (6-16); Aspartate Aminotrans (AST/SGOT 31 U/L (12-37); Bilirubin, Total 0.5 mg/dL (0.1-1.0); Blood Urea Nitrogen 20 mg/dL (8-24); Bun/Creatinine Ratio 12.7 (12.0-20.0); CO2, Blood 24 mmol/L (21-32); Calcium, Blood 9.1 mg/dL (8.5-10.1); Chloride, Blood 108 mmol/L (98-108); Creatinine, Blood 1.58 mg/dL (0.60-1.20); Globulin, Blood 4.4 g/dL (2.2-4.0); Glomerular Filtration Rate 46 (60-); Glucose, Blood 176 mg/dL (70-99); Potassium, Blood 4.7 mmol/L (3.5-5.5); Sodium, Blood 139 mmol/L (136-145); Troponin I <0.015 ng/mL (0.000-0.040)
[2020-01-01] MEDS ORDERED: Prednisone20 MG PO (19:27)
[2020-01-01] MEDS ORDERED: Vibramycin100 MG PO (19:27)
== END 2020-01-01 20:20 | disposition home or self-care (01) ==
LOC: ER 16:42
PROVIDERS: Physician Assistant
DX: J98.01 Acute bronchospasm (principal); J40 Bronchitis, not specified as acute or chronic; I11.0 Hypertensive heart disease with heart failure; I50.9 Heart failure, unspecified; I25.2 Old myocardial infarction; E11.42 Type 2 diabetes mellitus with diabetic polyneuropathy; I48.91 Unspecified atrial fibrillation; F41.9 Anxiety disorder, unspecified; Z88.0 Allergy status to penicillin; Z88.8 Allergy status to other drugs, medicaments and biological substances; Z79.899 Other long term (current) drug therapy; Z79.51 Long term (current) use of inhaled steroids; Z79.4 Long term (current) use of insulin; Z79.01 Long term (current) use of anticoagulants
CPT/HCPCS: 36415; 71046; 80053; 83880; 84484; 85025; 93005; 93010; 96374; 99284-25; J2930

== ENCOUNTER 2020-02-05 02:56 | Day surgery (SDC) | payer MEDICARE, OTHER ==
[~2020-02-05 02:56] MED LIST changes: +Cyclobenzaprine5 MG PO; +KETO10 PO; +LIDO700A20 TOP; +Prednisone20 MG PO
== END 2020-02-05 23:12 | disposition home or self-care (01) ==
LOC: WOUND 02:56
DX: E11.51 Type 2 diabetes mellitus with diabetic peripheral angiopathy without gangrene (principal); I11.0 Hypertensive heart disease with heart failure; I50.9 Heart failure, unspecified; E78.00 Pure hypercholesterolemia, unspecified; I25.2 Old myocardial infarction; G47.30 Sleep apnea, unspecified; Z99.89 Dependence on other enabling machines and devices
CPT/HCPCS: G0463

== ENCOUNTER → 2020-02-17 | Outpatient (CLI) | payer MEDICARE, OTHER ==
[2020-02-17 12:45] LABS: International Normalized Ratio 1.13
== END ==
LOC: LAB SHORT 12:03 → LAB 12:03 → LAB FUT 01-26 08:10 → EDSTATUS 01-26 08:10
PROVIDERS: Family Medicine
DX: I48.91 Unspecified atrial fibrillation (principal)
CPT/HCPCS: 85610

== ENCOUNTER 2020-11-01 18:56 | Emergency (ER) | payer MEDICARE, BC ==
[~2020-11-01] VITALS: Ht 180.3 cm; Wt 150.1 kg
[~2020-11-01 18:56] MED LIST changes: +ALPR1 PO; +ASPI81CH PO; +BREO ELLIPTA 11 EAC1 IH; +CORICIDIN HBP1 EACH PO; +DULERA 100 MCG/13 GM INH; +ELIQUIS5 MG PO; +LOSA50 PO; +METFORMIN HCL1000 M2 PO; +METOPROLOL SUCC25 MG PO; +Pravachol40 MG PO
[2020-11-01 22:19] LABS: BASOPHILS ABSOLUTE AUTO 0.08 K/mm3 (0.00-0.23); BASOPHILS PERCENT AUTO 1 % (0-2); EOSINOPHILS PERCENT AUTO 4 % (0-6); Hematocrit 46.9 % (37.0-53.0); IMMATURE GRAN ABSOLUTE AUTO 0.06 K/mm3 (0.00-0.10); IMMATURE GRAN PERCENT AUTO 1 % (0-1); LYMPHOCYTES ABSOLUTE AUTO 3.32 K/mm3 (0.84-5.20); LYMPHOCYTES PERCENT AUTO 37 % (21-46); MONOCYTES ABSOLUTE AUTO 0.93 K/mm3 (0.16-1.47); MONOCYTES PERCENT AUTO 10 % (4-13); Mean Corpuscular HGB 28.6 pg (26.0-34.0); Mean Corpuscular Volume 89 fL (80-100); NEUTROPHILS ABSOLUTE AUTO 4.21 K/mm3 (1.96-9.15); NEUTROPHILS PERCENT AUTO 47 % (41-73); Platelet Count 261 K/mm3 (150-400); RDW Coefficient Variation 13.5 % (11.7-14.2); RDW Standard Deviation 44.5 fL (35.1-46.3); Red Blood Cell Count 5.25 M/mm3 (4.30-5.90)
[2020-11-01 22:34] LABS: International Normalized Ratio 1.04; Prothrombin Time Results 11.1 Sec (9.7-11.5)
[2020-11-01 22:40] LABS: Alanine Aminotransfer (ALT/SGP 40 U/L (12-78); Albumin, Blood 3.3 g/dL (3.4-5.0); Alk Phos 72 U/L (50-136); Anion Gap 8 mmol/L (6-16); Aspartate Aminotrans (AST/SGOT 24 U/L (12-37); Bilirubin, Total 0.5 mg/dL (0.1-1.0); Blood Urea Nitrogen 29 mg/dL (8-24); Bun/Creatinine Ratio 21.8 (12.0-20.0); CO2, Blood 20 mmol/L (21-32); Calcium, Blood 9.1 mg/dL (8.5-10.1); Chloride, Blood 111 mmol/L (98-108); Creatinine, Blood 1.33 mg/dL (0.60-1.20); Globulin, Blood 3.2 g/dL (2.2-4.0); Glomerular Filtration Rate 57 (60-); Glucose, Blood 183 mg/dL (70-99); Potassium, Blood 4.2 mmol/L (3.5-5.5); Sodium, Blood 139 mmol/L (136-145); Total Protein, Blood 6.5 g/dL (6.4-8.2); Troponin I <0.015 ng/mL (0.000-0.040)
[2020-11-01 23:53] LABS: Source, Urine Voided
[2020-11-01 23:55] LABS: Bilirubin, Urine Neg (Neg); Blood, Urine 1+ (Neg); Glucose Qualitative, Urine 2+ (Neg); Ketones, Urine Neg (Neg); Leukocyte Esterase, Urine Neg (Neg); Nitrite, Urine Neg (Neg); Protein, Urine 3+ (Neg); Urobilinogen, Urine NORM (Normal)
[2020-11-01 23:56] LABS: Appearance, Urine Clear (Clear); Color, Urine Yellow (P-Yellow)
[2020-11-02 00:06] LABS: Amorphous Light (0-Heavy); Bacteria Mod /hpf; Red Blood Cells, Urine 0-2 /hpf (0-2); Squamous Epithelial Cells Not Seen /hpf (Few); White Blood Cells, Urine 0-2 /hpf (0-5)
== END 2020-11-02 00:19 | disposition home or self-care (01) ==
LOC: ER 18:56
PROVIDERS: Emergency Medicine
DX: S20.211A Contusion of right front wall of thorax, initial encounter (principal); S80.211A Abrasion, right knee, initial encounter; I48.91 Unspecified atrial fibrillation; E11.9 Type 2 diabetes mellitus without complications; J44.9 Chronic obstructive pulmonary disease, unspecified; Z79.82 Long term (current) use of aspirin; Z79.899 Other long term (current) drug therapy; Z79.84 Long term (current) use of oral hypoglycemic drugs; Z79.01 Long term (current) use of anticoagulants; Z88.0 Allergy status to penicillin; Z88.8 Allergy status to other drugs, medicaments and biological substances; Z87.891 Personal history of nicotine dependence; X50.1XXA Overexertion from prolonged static or awkward postures, initial encounter; W01.0XXA Fall on same level from slipping, tripping and stumbling without subsequent striking against object, initial encounter
CPT/HCPCS: 70450; 71260; 72125; 73562-RT; 74177; 80053; 81001; 83690; 84484; 85025; 85610; 85730; 86850; 86900; 86901; 87077; 87086; 87186; 90714; 93005; 93010; 96361; 96374-59; 99284-25; J3010; J7030; Q9967

== ENCOUNTER 2021-02-20 17:49 | Emergency (ER) | payer MEDICARE, BC ==
[~2021-02-20] VITALS: Ht 180.3 cm; Wt 149.7 kg
== END 2021-02-20 20:16 | disposition home or self-care (01) ==
LOC: ER 17:49
DX: S63.501A Unspecified sprain of right wrist, initial encounter (principal); I48.91 Unspecified atrial fibrillation; J44.9 Chronic obstructive pulmonary disease, unspecified; I11.0 Hypertensive heart disease with heart failure; I50.9 Heart failure, unspecified; E11.40 Type 2 diabetes mellitus with diabetic neuropathy, unspecified; I25.2 Old myocardial infarction; Z88.0 Allergy status to penicillin; Z88.8 Allergy status to other drugs, medicaments and biological substances; Z79.899 Other long term (current) drug therapy; Z79.84 Long term (current) use of oral hypoglycemic drugs; Z79.82 Long term (current) use of aspirin; Z79.01 Long term (current) use of anticoagulants; Z87.891 Personal history of nicotine dependence; X58.XXXA Exposure to other specified factors, initial encounter
CPT/HCPCS: 73130; 99283-25

== ENCOUNTER 2021-04-08 16:14 | Emergency (ER) | payer MEDICARE, BC ==
[~2021-04-08] VITALS: Ht 180.3 cm; Wt 147.4 kg
[2021-04-08 16:58] LABS: BASOPHILS ABSOLUTE AUTO 0.06 K/mm3 (0.00-0.23); BASOPHILS PERCENT AUTO 1 % (0-2); EOSINOPHILS ABSOLUTE AUTO 0.28 K/mm3 (0.00-0.68); EOSINOPHILS PERCENT AUTO 3 % (0-6); Hematocrit 42.6 % (37.0-53.0); Hemoglobin 14.1 g/dL (13.5-17.5); IMMATURE GRAN ABSOLUTE AUTO 0.05 K/mm3 (0.00-0.10); IMMATURE GRAN PERCENT AUTO 1 % (0-1); LYMPHOCYTES ABSOLUTE AUTO 1.93 K/mm3 (0.84-5.20); LYMPHOCYTES PERCENT AUTO 23 % (21-46); MONOCYTES ABSOLUTE AUTO 0.65 K/mm3 (0.16-1.47); MONOCYTES PERCENT AUTO 8 % (4-13); Mean Corpuscular HGB 29.2 pg (26.0-34.0); Mean Corpuscular HGB Conc 33.1 g/dL (31.5-36.5); Mean Corpuscular Volume 88 fL (80-100); Mean Platelet Volume 9.1 fL (9.1-12.4); NEUTROPHILS PERCENT AUTO 64 % (41-73); Platelet Count 258 K/mm3 (150-400); RDW Coefficient Variation 13.2 % (11.7-14.2); RDW Standard Deviation 43.3 fL (35.1-46.3); Red Blood Cell Count 4.83 M/mm3 (4.30-5.90); White Blood Cell Count 8.27 K/mm3 (4.00-11.30)
[2021-04-08 17:39] LABS: C-REACTIVE PROTEIN, EXT RANGE 0.569 mg/dL (0.000-0.300)
[2021-04-08 17:41] LABS: Albumin, Blood 3.4 g/dL (3.4-5.0); Bilirubin, Total 0.4 mg/dL (0.1-1.0); Bun/Creatinine Ratio 19.9 (12.0-20.0); Calcium, Blood 8.8 mg/dL (8.5-10.1); Creatinine, Blood 1.51 mg/dL (0.60-1.20); Globulin, Blood 3.3 g/dL (2.2-4.0); Total Protein, Blood 6.7 g/dL (6.4-8.2)
[2021-04-08 18:56] LABS: BODY FLUID RBC 0.052 M/mm3 (0-0); RBC Count, Synovial Fluid 52000 /mm3 (0-0); WBC Count, Synovial Fluid 390 /mm3 (0-180)
[2021-04-08 20:01] LABS: Color, Synovial Fluid Dark Yellow (None-P Yel); Eos, Synovial Fluid 1 % (0-2); Lymphs, Synovial Fluid 33 % (0-15); Monocytes/Macrophages, Synovia 37 % (0-65); Neutrophils, Synovial Fluid 29 % (0-24)
[2021-04-08 20:02] LABS: Appearance, Synovial Fluid Cloudy (Clear)
[2021-04-08] MEDS ORDERED: LIDO700A20 TOP (20:19)
== END 2021-04-08 20:52 | disposition home or self-care (01) ==
LOC: ER 16:14
PROVIDERS: Emergency Medicine; Physician Assistant
DX: M25.562 Pain in left knee (principal); I48.91 Unspecified atrial fibrillation; I12.9 Hypertensive chronic kidney disease with stage 1 through stage 4 chronic kidney disease, or unspecified chronic kidney disease; I50.9 Heart failure, unspecified; J44.9 Chronic obstructive pulmonary disease, unspecified; E11.40 Type 2 diabetes mellitus with diabetic neuropathy, unspecified; E78.5 Hyperlipidemia, unspecified; I25.2 Old myocardial infarction; Z87.891 Personal history of nicotine dependence; Z88.0 Allergy status to penicillin; Z88.8 Allergy status to other drugs, medicaments and biological substances; Z79.899 Other long term (current) drug therapy; Z79.01 Long term (current) use of anticoagulants
CPT/HCPCS: 20610; 36415; 73562-LT; 80053; 85025; 85651; 86140; 87070; 87075; 87205; 89051; 96374-59; 96375-59; 99283-25; A9270; J1170; J2405

== ENCOUNTER 2022-04-28 16:45 | Emergency (ER) | payer MEDICARE, OTHER ==
[~2022-04-28] VITALS: Ht 180.3 cm; Wt 141.5 kg
== END 2022-04-28 16:57 | disposition home or self-care (01) ==
LOC: ER 16:45
DX: T16.1XXA Foreign body in right ear, initial encounter (principal); Z88.0 Allergy status to penicillin; Z88.8 Allergy status to other drugs, medicaments and biological substances; Z91.09 Other allergy status, other than to drugs and biological substances; Z79.899 Other long term (current) drug therapy; Z79.84 Long term (current) use of oral hypoglycemic drugs; Z79.82 Long term (current) use of aspirin; Z87.891 Personal history of nicotine dependence
CPT/HCPCS: 99282

== ENCOUNTER 2022-06-05 16:21 | Emergency (ER) | payer MEDICARE, OTHER ==
[~2022-06-05] VITALS: Ht 180.3 cm; Wt 141.5 kg
[2022-06-05 16:58] LABS: BASOPHILS PERCENT AUTO 1 % (0-2); EOSINOPHILS ABSOLUTE AUTO 0.35 K/mm3 (0.00-0.68); EOSINOPHILS PERCENT AUTO 4 % (0-6); Hematocrit 47.7 % (37.0-53.0); Hemoglobin 15.2 g/dL (13.5-17.5); IMMATURE GRAN ABSOLUTE AUTO 0.03 K/mm3 (0.00-0.10); IMMATURE GRAN PERCENT AUTO 0 % (0-1); LYMPHOCYTES ABSOLUTE AUTO 2.54 K/mm3 (0.84-5.20); LYMPHOCYTES PERCENT AUTO 29 % (21-46); MONOCYTES ABSOLUTE AUTO 0.75 K/mm3 (0.16-1.47); MONOCYTES PERCENT AUTO 9 % (4-13); Mean Corpuscular HGB 28.7 pg (26.0-34.0); Mean Corpuscular HGB Conc 31.9 g/dL (31.5-36.5); Mean Corpuscular Volume 90 fL (80-100); Mean Platelet Volume 9.1 fL (9.1-12.4); NEUTROPHILS ABSOLUTE AUTO 4.87 K/mm3 (1.96-9.15); NEUTROPHILS PERCENT AUTO 56 % (41-73); Platelet Count 260 K/mm3 (150-400); RDW Coefficient Variation 13.8 % (11.7-14.2); RDW Standard Deviation 45.8 fL (35.1-46.3); Red Blood Cell Count 5.29 M/mm3 (4.30-5.90); White Blood Cell Count 8.64 K/mm3 (4.00-11.30)
[2022-06-05 17:25] LABS: Albumin, Blood 3.3 g/dL (3.4-5.0); Bilirubin, Total 0.4 mg/dL (0.1-1.0); Bun/Creatinine Ratio 22.9 (12.0-20.0); Calcium, Blood 9.2 mg/dL (8.5-10.1); Creatinine, Blood 1.57 mg/dL (0.60-1.20); Globulin, Blood 3.2 g/dL (2.2-4.0); Potassium, Blood 4.5 mmol/L (3.5-5.5); Total Protein, Blood 6.5 g/dL (6.4-8.2)
[2022-06-05 20:48] LABS: Source, Urine Clean Catch
[2022-06-05 20:54] LABS: Appearance, Urine Clear (Clear); Bilirubin, Urine Neg (Neg); Blood, Urine Neg (Neg); Color, Urine Yellow (P-Yellow); Glucose Qualitative, Urine 2+ (Neg); Ketones, Urine Neg (Neg); Leukocyte Esterase, Urine Neg (Neg); Nitrite, Urine Neg (Neg); Protein, Urine 4+ (Neg); Urobilinogen, Urine NORM (Normal)
[2022-06-05 21:29] LABS: Bacteria Few /hpf; Hyaline Casts 0-2 /lpf (0-2); Red Blood Cells, Urine 0-2 /hpf (0-2); Squamous Epithelial Cells Few /hpf (Few); White Blood Cells, Urine 0-2 /hpf (0-5)
== END 2022-06-05 22:35 | disposition home or self-care (01) ==
LOC: ER 16:21
PROVIDERS: Physician Assistant
DX: R10.12 Left upper quadrant pain (principal); I48.91 Unspecified atrial fibrillation; I11.0 Hypertensive heart disease with heart failure; I50.9 Heart failure, unspecified; E11.9 Type 2 diabetes mellitus without complications; J44.9 Chronic obstructive pulmonary disease, unspecified; E78.5 Hyperlipidemia, unspecified; Z87.891 Personal history of nicotine dependence; Z79.899 Other long term (current) drug therapy; Z79.82 Long term (current) use of aspirin; Z79.01 Long term (current) use of anticoagulants; Z79.84 Long term (current) use of oral hypoglycemic drugs; Z88.0 Allergy status to penicillin; Z88.8 Allergy status to other drugs, medicaments and biological substances; Z91.09 Other allergy status, other than to drugs and biological substances
CPT/HCPCS: 36415; 74177; 80053; 81001; 83690; 85025; 99284-25; Q9967

== ENCOUNTER 2022-07-14 20:36 | Emergency (ER) | payer MEDICARE, OTHER ==
[~2022-07-14] VITALS: Ht 180.3 cm; Wt 136.1 kg
[2022-07-14 21:08] LABS: BASOPHILS ABSOLUTE AUTO 0.09 K/mm3 (0.00-0.23); BASOPHILS PERCENT AUTO 1 % (0-2); EOSINOPHILS ABSOLUTE AUTO 0.37 K/mm3 (0.00-0.68); EOSINOPHILS PERCENT AUTO 4 % (0-6); Hematocrit 42.8 % (37.0-53.0); Hemoglobin 14.2 g/dL (13.5-17.5); IMMATURE GRAN ABSOLUTE AUTO 0.08 K/mm3 (0.00-0.10); IMMATURE GRAN PERCENT AUTO 1 % (0-1); LYMPHOCYTES ABSOLUTE AUTO 2.61 K/mm3 (0.84-5.20); LYMPHOCYTES PERCENT AUTO 28 % (21-46); MONOCYTES ABSOLUTE AUTO 0.96 K/mm3 (0.16-1.47); MONOCYTES PERCENT AUTO 10 % (4-13); Mean Corpuscular HGB 29.6 pg (26.0-34.0); Mean Corpuscular HGB Conc 33.2 g/dL (31.5-36.5); Mean Corpuscular Volume 89 fL (80-100); Mean Platelet Volume 9.1 fL (9.1-12.4); NEUTROPHILS PERCENT AUTO 56 % (41-73); Platelet Count 241 K/mm3 (150-400); RDW Coefficient Variation 13.7 % (11.7-14.2); RDW Standard Deviation 45.1 fL (35.1-46.3); White Blood Cell Count 9.41 K/mm3 (4.00-11.30)
[2022-07-14 21:22] LABS: International Normalized Ratio 1.83; Prothrombin Time Results 18.5 Sec (9.7-11.5)
[2022-07-14 21:25] LABS: Bilirubin, Total 0.5 mg/dL (0.1-1.0); Bun/Creatinine Ratio 20.5 (12.0-20.0); Calcium, Blood 8.9 mg/dL (8.5-10.1); Creatinine, Blood 1.46 mg/dL (0.60-1.20); Magnesium, Blood 1.6 mg/dL (1.6-2.4); Potassium, Blood 4.4 mmol/L (3.5-5.5)
== END 2022-07-15 01:57 | disposition home or self-care (01) ==
LOC: ER 20:36
PROVIDERS: Student in an Organized Health Care Education/Training Program
DX: S01.01XA Laceration without foreign body of scalp, initial encounter (principal); S50.312A Abrasion of left elbow, initial encounter; M54.50 Low back pain, unspecified; E11.9 Type 2 diabetes mellitus without complications; J44.9 Chronic obstructive pulmonary disease, unspecified; I11.0 Hypertensive heart disease with heart failure; I50.9 Heart failure, unspecified; I25.2 Old myocardial infarction; W19.XXXA Unspecified fall, initial encounter; Z79.899 Other long term (current) drug therapy; Z87.891 Personal history of nicotine dependence
CPT/HCPCS: 70450; 71045; 72125; 72128; 72131; 72170; 73030; 73080; 80053; 83735; 84484; 85025; 85610; 90714; 93005; 93010; J3010

== ENCOUNTER 2022-09-08 16:31 | Emergency (ER) | payer MEDICARE, OTHER ==
[~2022-09-08] VITALS: Ht 180.3 cm; Wt 140.6 kg
[2022-09-08] MEDS ORDERED: WARF1 (16:51)
[2022-09-08 16:57] LABS: BASOPHILS PERCENT AUTO 1 % (0-2); EOSINOPHILS ABSOLUTE AUTO 0.54 K/mm3 (0.00-0.68); EOSINOPHILS PERCENT AUTO 7 % (0-6); Hematocrit 42.9 % (37.0-53.0); Hemoglobin 14.4 g/dL (13.5-17.5); IMMATURE GRAN ABSOLUTE AUTO 0.05 K/mm3 (0.00-0.10); IMMATURE GRAN PERCENT AUTO 1 % (0-1); LYMPHOCYTES ABSOLUTE AUTO 1.93 K/mm3 (0.84-5.20); LYMPHOCYTES PERCENT AUTO 25 % (21-46); MONOCYTES ABSOLUTE AUTO 0.71 K/mm3 (0.16-1.47); MONOCYTES PERCENT AUTO 9 % (4-13); Mean Corpuscular HGB 30.3 pg (26.0-34.0); Mean Corpuscular HGB Conc 33.6 g/dL (31.5-36.5); Mean Corpuscular Volume 90 fL (80-100); Mean Platelet Volume 9.1 fL (9.1-12.4); NEUTROPHILS ABSOLUTE AUTO 4.48 K/mm3 (1.96-9.15); NEUTROPHILS PERCENT AUTO 57 % (41-73); Platelet Count 245 K/mm3 (150-400); RDW Coefficient Variation 13.5 % (11.7-14.2); RDW Standard Deviation 44.5 fL (35.1-46.3); Red Blood Cell Count 4.75 M/mm3 (4.30-5.90); White Blood Cell Count 7.81 K/mm3 (4.00-11.30)
[2022-09-08 17:09] LABS: Albumin, Blood 3.3 g/dL (3.4-5.0); Albumin/Globulin Ratio 1.1 (0.8-1.8); Bilirubin, Total 0.4 mg/dL (0.1-1.0); Bun/Creatinine Ratio 20.4 (12.0-20.0); Calcium, Blood 9.2 mg/dL (8.5-10.1); Creatinine, Blood 1.81 mg/dL (0.60-1.20); Potassium, Blood 4.7 mmol/L (3.5-5.5); Total Protein, Blood 6.3 g/dL (6.4-8.2)
== END 2022-09-08 18:38 | disposition home or self-care (01) ==
LOC: ER 16:31
PROVIDERS: Emergency Medicine
DX: M25.512 Pain in left shoulder (principal); M25.552 Pain in left hip; M25.551 Pain in right hip; M25.522 Pain in left elbow; E11.9 Type 2 diabetes mellitus without complications; J44.9 Chronic obstructive pulmonary disease, unspecified; I25.2 Old myocardial infarction; I11.0 Hypertensive heart disease with heart failure; I50.9 Heart failure, unspecified; E78.5 Hyperlipidemia, unspecified; Z88.0 Allergy status to penicillin; Z88.8 Allergy status to other drugs, medicaments and biological substances; Z79.899 Other long term (current) drug therapy; Z79.84 Long term (current) use of oral hypoglycemic drugs; Z79.82 Long term (current) use of aspirin; Z79.01 Long term (current) use of anticoagulants; Z87.891 Personal history of nicotine dependence
CPT/HCPCS: 70450; 73030; 73523; 80053; 85025; 93005; 93010; 96374; 96375; 99285-25; J2270; J2405

== ENCOUNTER 2023-05-04 20:27 | Emergency (ER) | payer MEDICARE, OTHER ==
[~2023-05-04] VITALS: Ht 180.3 cm; Wt 138.3 kg
[~2023-05-04 20:27] MED LIST changes: +WARF1
[2023-05-04 20:55] LABS: BASOPHILS ABSOLUTE AUTO 0.08 K/mm3 (0.00-0.23); BASOPHILS PERCENT AUTO 1 % (0-2); EOSINOPHILS ABSOLUTE AUTO 0.37 K/mm3 (0.00-0.68); EOSINOPHILS PERCENT AUTO 4 % (0-6); Hematocrit 42.1 % (37.0-53.0); Hemoglobin 13.5 g/dL (13.5-17.5); IMMATURE GRAN ABSOLUTE AUTO 0.04 K/mm3 (0.00-0.10); IMMATURE GRAN PERCENT AUTO 1 % (0-1); LYMPHOCYTES PERCENT AUTO 27 % (21-46); MONOCYTES ABSOLUTE AUTO 0.77 K/mm3 (0.16-1.47); MONOCYTES PERCENT AUTO 9 % (4-13); Mean Corpuscular HGB 30.4 pg (26.0-34.0); Mean Corpuscular HGB Conc 32.1 g/dL (31.5-36.5); Mean Corpuscular Volume 95 fL (80-100); Mean Platelet Volume 8.9 fL (9.1-12.4); NEUTROPHILS ABSOLUTE AUTO 4.92 K/mm3 (1.96-9.15); NEUTROPHILS PERCENT AUTO 58 % (41-73); Platelet Count 239 K/mm3 (150-400); RDW Standard Deviation 45.4 fL (35.1-46.3); Red Blood Cell Count 4.44 M/mm3 (4.30-5.90); White Blood Cell Count 8.48 K/mm3 (4.00-11.30)
[2023-05-04 21:14] LABS: Albumin, Blood 3.1 g/dL (3.4-5.0); Bilirubin, Total 0.4 mg/dL (0.1-1.0); Calcium, Blood 8.1 mg/dL (8.5-10.1); Creatinine, Blood 1.93 mg/dL (0.60-1.20); Globulin, Blood 3.1 g/dL (2.2-4.0); Potassium, Blood 4.6 mmol/L (3.5-5.5); Total Protein, Blood 6.2 g/dL (6.4-8.2)
[2023-05-04 23:19] LABS: International Normalized Ratio 2.18; Prothrombin Time Results 21.9 Sec (9.7-11.5)
[2023-05-04 23:45] VITALS: BP 151/88
== END 2023-05-05 03:10 | disposition home or self-care (01) ==
LOC: ER 20:27
PROVIDERS: Emergency Medicine; Student in an Organized Health Care Education/Training Program
DX: R07.89 Other chest pain (principal); R10.84 Generalized abdominal pain; M25.512 Pain in left shoulder; Z79.01 Long term (current) use of anticoagulants; Z87.891 Personal history of nicotine dependence; W07.XXXA Fall from chair, initial encounter
CPT/HCPCS: 71046; 71260; 73030; 74177; 80053; 85025; 85610; 93005; 93010; 96374-59; 96375; 99284-25; J1170; J2405; Q9967

== ENCOUNTER 2023-06-06 15:30 | Emergency (ER) | payer MEDICARE, OTHER ==
[~2023-06-06] VITALS: Ht 177.8 cm; Wt 137.4 kg
[2023-06-06 16:27] LABS: BASOPHILS ABSOLUTE AUTO 0.06 K/mm3 (0.00-0.23); BASOPHILS PERCENT AUTO 1 % (0-2); EOSINOPHILS ABSOLUTE AUTO 0.27 K/mm3 (0.00-0.68); EOSINOPHILS PERCENT AUTO 3 % (0-6); Hematocrit 40.9 % (37.0-53.0); Hemoglobin 13.5 g/dL (13.5-17.5); IMMATURE GRAN ABSOLUTE AUTO 0.02 K/mm3 (0.00-0.10); IMMATURE GRAN PERCENT AUTO 0 % (0-1); LYMPHOCYTES ABSOLUTE AUTO 1.62 K/mm3 (0.84-5.20); LYMPHOCYTES PERCENT AUTO 19 % (21-46); MONOCYTES ABSOLUTE AUTO 0.53 K/mm3 (0.16-1.47); MONOCYTES PERCENT AUTO 6 % (4-13); Mean Corpuscular HGB 30.2 pg (26.0-34.0); Mean Corpuscular Volume 92 fL (80-100); NEUTROPHILS ABSOLUTE AUTO 5.99 K/mm3 (1.96-9.15); NEUTROPHILS PERCENT AUTO 71 % (41-73); Platelet Count 248 K/mm3 (150-400); RDW Coefficient Variation 13.4 % (11.7-14.2); RDW Standard Deviation 45.1 fL (35.1-46.3); Red Blood Cell Count 4.47 M/mm3 (4.30-5.90); White Blood Cell Count 8.49 K/mm3 (4.00-11.30)
[2023-06-06 16:45] LABS: Albumin, Blood 3.2 g/dL (3.4-5.0); Bilirubin, Total 0.4 mg/dL (0.1-1.0); Bun/Creatinine Ratio 13.5 (12.0-20.0); Calcium, Blood 8.7 mg/dL (8.5-10.1); Creatinine, Blood 1.48 mg/dL (0.60-1.20); Globulin, Blood 3.2 g/dL (2.2-4.0); Potassium, Blood 4.1 mmol/L (3.5-5.5); Total Protein, Blood 6.4 g/dL (6.4-8.2)
[2023-06-06 19:39] VITALS: BP 186/95
== END 2023-06-06 19:49 | disposition home or self-care (01) ==
LOC: ER 15:30
PROVIDERS: Student in an Organized Health Care Education/Training Program
DX: S00.03XA Contusion of scalp, initial encounter (principal); M54.2 Cervicalgia; M54.50 Low back pain, unspecified; M53.3 Sacrococcygeal disorders, not elsewhere classified; E11.9 Type 2 diabetes mellitus without complications; J44.9 Chronic obstructive pulmonary disease, unspecified; I25.2 Old myocardial infarction; I11.0 Hypertensive heart disease with heart failure; I50.9 Heart failure, unspecified; E78.5 Hyperlipidemia, unspecified; I48.91 Unspecified atrial fibrillation; Z88.0 Allergy status to penicillin; Z88.8 Allergy status to other drugs, medicaments and biological substances; Z91.048 Other nonmedicinal substance allergy status; Z79.01 Long term (current) use of anticoagulants; Z79.82 Long term (current) use of aspirin; Z79.84 Long term (current) use of oral hypoglycemic drugs; Z79.899 Other long term (current) drug therapy; Z87.891 Personal history of nicotine dependence; W18.30XA Fall on same level, unspecified, initial encounter
CPT/HCPCS: 70450; 72100; 72125; 72170; 72220; 80053; 84484; 85025; 93005; 93010; 96374; 96375; 99285-25; J1885; J2270

== ENCOUNTER 2023-07-19 13:30 | Emergency (ER) | payer MEDICARE, OTHER ==
[~2023-07-19] VITALS: Ht 175.3 cm; Wt 127.5 kg
[2023-07-19 13:59] VITALS: BP 140/98
[2023-07-19 14:55] LABS: BASOPHILS ABSOLUTE AUTO 0.05 K/mm3 (0.00-0.23); BASOPHILS PERCENT AUTO 1 % (0-2); EOSINOPHILS ABSOLUTE AUTO 0.27 K/mm3 (0.00-0.68); EOSINOPHILS PERCENT AUTO 3 % (0-6); Hematocrit 41.5 % (37.0-53.0); Hemoglobin 13.8 g/dL (13.5-17.5); IMMATURE GRAN ABSOLUTE AUTO 0.03 K/mm3 (0.00-0.10); IMMATURE GRAN PERCENT AUTO 0 % (0-1); LYMPHOCYTES ABSOLUTE AUTO 1.52 K/mm3 (0.84-5.20); LYMPHOCYTES PERCENT AUTO 19 % (21-46); MONOCYTES ABSOLUTE AUTO 0.63 K/mm3 (0.16-1.47); MONOCYTES PERCENT AUTO 8 % (4-13); Mean Corpuscular HGB 29.9 pg (26.0-34.0); Mean Corpuscular HGB Conc 33.3 g/dL (31.5-36.5); Mean Corpuscular Volume 90 fL (80-100); Mean Platelet Volume 9.2 fL (9.1-12.4); NEUTROPHILS ABSOLUTE AUTO 5.49 K/mm3 (1.96-9.15); NEUTROPHILS PERCENT AUTO 69 % (41-73); Platelet Count 253 K/mm3 (150-400); RDW Standard Deviation 42.6 fL (35.1-46.3); Red Blood Cell Count 4.61 M/mm3 (4.30-5.90); White Blood Cell Count 7.99 K/mm3 (4.00-11.30)
[2023-07-19] MEDS ORDERED: Cephalexin500 M1 PO (15:21)
== END 2023-07-19 15:25 | disposition home or self-care (01) ==
LOC: ER 13:30
PROVIDERS: Physician Assistant
DX: L03.115 Cellulitis of right lower limb (principal); I48.91 Unspecified atrial fibrillation; E11.40 Type 2 diabetes mellitus with diabetic neuropathy, unspecified; J44.9 Chronic obstructive pulmonary disease, unspecified; M19.90 Unspecified osteoarthritis, unspecified site; I11.0 Hypertensive heart disease with heart failure; I50.9 Heart failure, unspecified; E78.5 Hyperlipidemia, unspecified; G47.30 Sleep apnea, unspecified; Z87.891 Personal history of nicotine dependence
CPT/HCPCS: 85025; 99283

== ENCOUNTER 2023-07-25 11:52 | Emergency (ER) | payer OTHER, MEDICARE ==
[~2023-07-25] VITALS: Ht 185.4 cm; Wt 136.1 kg
[~2023-07-25 11:52] MED LIST changes: +Cephalexin500 M1 PO
[2023-07-25 12:29] LABS: BASOPHILS ABSOLUTE AUTO 0.08 K/mm3 (0.00-0.23); BASOPHILS PERCENT AUTO 1 % (0-2); EOSINOPHILS ABSOLUTE AUTO 0.29 K/mm3 (0.00-0.68); EOSINOPHILS PERCENT AUTO 3 % (0-6); Hematocrit 43.1 % (37.0-53.0); Hemoglobin 14.6 g/dL (13.5-17.5); IMMATURE GRAN ABSOLUTE AUTO 0.04 K/mm3 (0.00-0.10); IMMATURE GRAN PERCENT AUTO 1 % (0-1); LYMPHOCYTES ABSOLUTE AUTO 1.89 K/mm3 (0.84-5.20); LYMPHOCYTES PERCENT AUTO 22 % (21-46); MONOCYTES ABSOLUTE AUTO 0.72 K/mm3 (0.16-1.47); MONOCYTES PERCENT AUTO 8 % (4-13); Mean Corpuscular HGB 30.1 pg (26.0-34.0); Mean Corpuscular HGB Conc 33.9 g/dL (31.5-36.5); Mean Corpuscular Volume 89 fL (80-100); Mean Platelet Volume 9.7 fL (9.1-12.4); NEUTROPHILS ABSOLUTE AUTO 5.74 K/mm3 (1.96-9.15); NEUTROPHILS PERCENT AUTO 66 % (41-73); Platelet Count 286 K/mm3 (150-400); RDW Coefficient Variation 13.1 % (11.7-14.2); RDW Standard Deviation 42.6 fL (35.1-46.3); Red Blood Cell Count 4.85 M/mm3 (4.30-5.90); White Blood Cell Count 8.76 K/mm3 (4.00-11.30)
[2023-07-25 12:45] LABS: International Normalized Ratio 1.38; Prothrombin Time Results 14.2 Sec (9.7-11.5)
[2023-07-25 13:00] VITALS: BP 163/103
[2023-07-25 13:41] LABS: Bun/Creatinine Ratio 14.4 (12.0-20.0); Calcium, Blood 8.7 mg/dL (8.5-10.1); Creatinine, Blood 1.53 mg/dL (0.60-1.20); Potassium, Blood 4.6 mmol/L (3.5-5.5)
== END 2023-07-25 14:02 | disposition home or self-care (01) ==
LOC: ER 11:52
PROVIDERS: Emergency Medicine
DX: R42 Dizziness and giddiness (principal); S09.90XA Unspecified injury of head, initial encounter; W01.10XA Fall on same level from slipping, tripping and stumbling with subsequent striking against unspecified object, initial encounter; I48.91 Unspecified atrial fibrillation; E11.40 Type 2 diabetes mellitus with diabetic neuropathy, unspecified; J44.9 Chronic obstructive pulmonary disease, unspecified; M19.90 Unspecified osteoarthritis, unspecified site; I50.9 Heart failure, unspecified; I11.0 Hypertensive heart disease with heart failure; E78.5 Hyperlipidemia, unspecified; G47.30 Sleep apnea, unspecified; I25.2 Old myocardial infarction; Z87.891 Personal history of nicotine dependence
CPT/HCPCS: 70450; 80048; 85025; 85610; 93005; 93010; 99284-25

== ENCOUNTER 2023-11-19 09:55 | Emergency (ER) | payer MEDICARE, OTHER ==
[~2023-11-19] VITALS: Ht 180.3 cm; Wt 177.3 kg
[2023-11-19 10:52] LABS: BASOPHILS ABSOLUTE AUTO 0.08 K/mm3 (0.00-0.23); BASOPHILS PERCENT AUTO 1 % (0-2); EOSINOPHILS ABSOLUTE AUTO 0.34 K/mm3 (0.00-0.68); EOSINOPHILS PERCENT AUTO 4 % (0-6); Hematocrit 42.8 % (37.0-53.0); Hemoglobin 13.8 g/dL (13.5-17.5); IMMATURE GRAN ABSOLUTE AUTO 0.05 K/mm3 (0.00-0.10); IMMATURE GRAN PERCENT AUTO 1 % (0-1); LYMPHOCYTES ABSOLUTE AUTO 1.71 K/mm3 (0.84-5.20); LYMPHOCYTES PERCENT AUTO 19 % (21-46); MONOCYTES ABSOLUTE AUTO 0.76 K/mm3 (0.16-1.47); MONOCYTES PERCENT AUTO 8 % (4-13); Mean Corpuscular HGB 29.3 pg (26.0-34.0); Mean Corpuscular HGB Conc 32.2 g/dL (31.5-36.5); Mean Corpuscular Volume 91 fL (80-100); Mean Platelet Volume 9.1 fL (9.1-12.4); NEUTROPHILS ABSOLUTE AUTO 6.15 K/mm3 (1.96-9.15); NEUTROPHILS PERCENT AUTO 68 % (41-73); Platelet Count 272 K/mm3 (150-400); RDW Coefficient Variation 14.1 % (11.7-14.2); RDW Standard Deviation 47.1 fL (35.1-46.3); Red Blood Cell Count 4.71 M/mm3 (4.30-5.90); White Blood Cell Count 9.09 K/mm3 (4.00-11.30)
[2023-11-19 11:18] LABS: Albumin, Blood 2.8 g/dL (3.4-5.0); Albumin/Globulin Ratio 0.8 (0.8-1.8); Bilirubin, Total 0.7 mg/dL (0.1-1.0); Bun/Creatinine Ratio 13.6 (12.0-20.0); C-REACTIVE PROTEIN, EXT RANGE 0.603 mg/dL (0.000-0.300); Calcium, Blood 9.1 mg/dL (8.5-10.1); Creatinine, Blood 1.62 mg/dL (0.60-1.20); Globulin, Blood 3.5 g/dL (2.2-4.0); Potassium, Blood 4.8 mmol/L (3.5-5.5); Total Protein, Blood 6.3 g/dL (6.4-8.2)
[2023-11-19 12:40] VITALS: BP 148/79
== END 2023-11-19 12:47 | disposition home or self-care (01) ==
LOC: ER 09:55
PROVIDERS: Emergency Medicine
DX: M79.671 Pain in right foot (principal); I11.0 Hypertensive heart disease with heart failure; I50.9 Heart failure, unspecified; I48.91 Unspecified atrial fibrillation; I25.2 Old myocardial infarction; E11.40 Type 2 diabetes mellitus with diabetic neuropathy, unspecified; J44.9 Chronic obstructive pulmonary disease, unspecified; M19.90 Unspecified osteoarthritis, unspecified site; G47.30 Sleep apnea, unspecified; E78.5 Hyperlipidemia, unspecified; Z87.891 Personal history of nicotine dependence; Z79.01 Long term (current) use of anticoagulants; Z79.84 Long term (current) use of oral hypoglycemic drugs; Z79.899 Other long term (current) drug therapy; Z88.0 Allergy status to penicillin; Z88.8 Allergy status to other drugs, medicaments and biological substances; Z91.09 Other allergy status, other than to drugs and biological substances
CPT/HCPCS: 73620; 80053; 85025; 85651; 86140; 99284-25

== ENCOUNTER 2023-12-13 17:12 | Emergency (ER) | payer OTHER, MEDICARE ==
[~2023-12-13] VITALS: Ht 180.3 cm; Wt 122.5 kg
[2023-12-13 17:34] VITALS: BP 157/102
== END 2023-12-13 18:37 | disposition home or self-care (01) ==
LOC: ER 17:12
DX: S80.01XA Contusion of right knee, initial encounter (principal); I11.0 Hypertensive heart disease with heart failure; I50.9 Heart failure, unspecified; E11.40 Type 2 diabetes mellitus with diabetic neuropathy, unspecified; I48.91 Unspecified atrial fibrillation; J44.9 Chronic obstructive pulmonary disease, unspecified; M19.90 Unspecified osteoarthritis, unspecified site; E78.5 Hyperlipidemia, unspecified; I25.2 Old myocardial infarction; G47.30 Sleep apnea, unspecified; Z79.01 Long term (current) use of anticoagulants; Z79.84 Long term (current) use of oral hypoglycemic drugs; Z79.899 Other long term (current) drug therapy; Z88.0 Allergy status to penicillin; Z88.8 Allergy status to other drugs, medicaments and biological substances; Z91.048 Other nonmedicinal substance allergy status; V47.6XXA Car passenger injured in collision with fixed or stationary object in traffic accident, initial encounter; Y92.410 Unspecified street and highway as the place of occurrence of the external cause
CPT/HCPCS: 73562-RT; 99283-25

== ENCOUNTER 2024-01-19 21:59 | Observation (INO) | payer MEDICARE, OTHER ==
[~2024-01-19] VITALS: Ht 177.8 cm; Wt 126.4 kg
[~2024-01-19 21:59] MED LIST changes: +METO25 PO; -METOPROLOL SUCC25 MG PO; -WARF1; +WARF1 PO
[2024-01-19 22:25] LABS: BASOPHILS ABSOLUTE AUTO 0.06 K/mm3 (0.00-0.23); BASOPHILS PERCENT AUTO 1 % (0-2); EOSINOPHILS ABSOLUTE AUTO 0.26 K/mm3 (0.00-0.68); EOSINOPHILS PERCENT AUTO 3 % (0-6); Hematocrit 43.3 % (37.0-53.0); Hemoglobin 13.9 g/dL (13.5-17.5); IMMATURE GRAN ABSOLUTE AUTO 0.05 K/mm3 (0.00-0.10); IMMATURE GRAN PERCENT AUTO 1 % (0-1); LYMPHOCYTES ABSOLUTE AUTO 1.99 K/mm3 (0.84-5.20); LYMPHOCYTES PERCENT AUTO 23 % (21-46); MONOCYTES ABSOLUTE AUTO 0.67 K/mm3 (0.16-1.47); MONOCYTES PERCENT AUTO 8 % (4-13); Mean Corpuscular HGB 29.6 pg (26.0-34.0); Mean Corpuscular HGB Conc 32.1 g/dL (31.5-36.5); Mean Corpuscular Volume 92 fL (80-100); Mean Platelet Volume 9.1 fL (9.1-12.4); NEUTROPHILS ABSOLUTE AUTO 5.46 K/mm3 (1.96-9.15); NEUTROPHILS PERCENT AUTO 64 % (41-73); Platelet Count 237 K/mm3 (150-400); RDW Coefficient Variation 13.6 % (11.7-14.2); RDW Standard Deviation 46.5 fL (35.1-46.3); Red Blood Cell Count 4.69 M/mm3 (4.30-5.90); White Blood Cell Count 8.49 K/mm3 (4.00-11.30)
[2024-01-19 22:40] LABS: International Normalized Ratio 0.96; Prothrombin Time Results 10.1 Sec (9.7-11.5)
[2024-01-19 22:45] LABS: Ethanol (Alcohol), Blood, Med <3 mg/dL; Magnesium, Blood 2.5 mg/dL (1.6-2.4)
[2024-01-19 22:46] LABS: Alanine Aminotransfer (ALT/SGP 45 U/L (12-78); Albumin, Blood 2.9 g/dL (3.4-5.0); Albumin/Globulin Ratio 0.9 (0.8-1.8); Alk Phos 96 U/L (50-136); Anion Gap 1 mmol/L (6-16); Aspartate Aminotrans (AST/SGOT 33 U/L (12-37); Bilirubin, Total 0.3 mg/dL (0.1-1.0); Blood Urea Nitrogen 44 mg/dL (8-24); Bun/Creatinine Ratio 21.3 (12.0-20.0); CO2, Blood 29 mmol/L (21-32); Calcium, Blood 8.9 mg/dL (8.5-10.1); Chloride, Blood 111 mmol/L (98-108); Creatinine, Blood 2.07 mg/dL (0.60-1.20); Globulin, Blood 3.3 g/dL (2.2-4.0); Glomerular Filtration Rate 33 (60-); Glucose, Blood 243 mg/dL (70-99); Potassium, Blood 4.3 mmol/L (3.5-5.5); Sodium, Blood 141 mmol/L (136-145); Total Protein, Blood 6.2 g/dL (6.4-8.2)
[2024-01-19 22:47] LABS: Source, Urine Straight Cath
[2024-01-19 22:50] LABS: Bilirubin, Urine Neg (Neg); Blood, Urine Neg (Neg); Glucose Qualitative, Urine 2+ (Neg); Ketones, Urine Neg (Neg); Leukocyte Esterase, Urine Neg (Neg); Nitrite, Urine Neg (Neg); Protein, Urine 4+ (Neg); Specific Gravity, Urine 1.025 (1.003-1.022); Urobilinogen, Urine NORM (Normal)
[2024-01-19 23:00] LABS: Amorphous Light (0-Heavy); Appearance, Urine Clear (Clear); Bacteria Not Seen /hpf; Color, Urine Yellow (P-Yellow); Red Blood Cells, Urine Not Seen /hpf (0-2); Squamous Epithelial Cells Few /hpf (Few); White Blood Cells, Urine Not Seen /hpf (0-5)
[2024-01-19 23:02] LABS: U Amphetamine Screen Not Detected; U Barbituate Screen Not Detected; U Benzodiazapine Screen Not Detected; U Buprenorphine Screen Not Detected; U Cannabinoids Screen DETECTED; U Cocaine Screen Not Detected; U Methadone Screen Not Detected; U Methamphetamine Screen Not Detected; U Opiates Screen Not Detected; U Oxycodone Screen DETECTED; U Phencyclidine Screen Not Detected
[2024-01-20] MEDS ORDERED: Enoxaparin 40 MG/0.4 ML SYR SC SCH ×2 (02:00→09:00)
[2024-01-20] MEDS ORDERED: Acetaminophen 325 MG TABLET PO PRN (02:05)
[2024-01-20] MEDS ORDERED: Magnesium Hydroxide Conc 10 ML UDC PO PRN (02:10)
[2024-01-20] MEDS ORDERED: FLU VACC QS2023-24(6MOS UP)/PF 60 MCG/0.5 ML SYRINGE IM ONE (02:10)
[2024-01-20] MEDS ORDERED: ALPRAZolam 0.5 MG Tab PO PRN (02:10)
[2024-01-20] MEDS ORDERED: FURO20 PO (02:19)
[2024-01-20] MEDS ORDERED: ATOR40TA PO (02:20)
[2024-01-20] MEDS ORDERED: CALC.25 PO (02:21)
[2024-01-20] MEDS ORDERED: LOSA25 PO (02:23)
[2024-01-20] MEDS ORDERED: Albuterol HFA200 ACT/6.7 GM INH INH PRN (02:35)
[2024-01-20] MEDS ORDERED: BUSP10 PO (02:35)
[2024-01-20] MEDS ORDERED: Mometasone/Formoterol MDI 100/5 mcg 13 GM INH SCH (02:35)
[2024-01-20] MEDS ORDERED: MUPIROCIN1 G1 TOP (02:59)
[2024-01-20] MEDS ORDERED: HydrALAZINE HCl 20 MG / ML 1ML Vial IV PRN (03:00)
[2024-01-20] MEDS ORDERED: HydrALAZINE HCl 20 MG / ML 1ML Vial IV ONE (03:00)
[2024-01-20] MEDS ORDERED: TAMS.4ER PO (03:02)
[2024-01-20 03:18] VITALS: BP 189/86
[2024-01-20] MEDS ORDERED: NS 1,000 ML IV ONE (03:40)
[2024-01-20 03:58] VITALS: BP 172/78
[2024-01-20 05:11] LABS: Hematocrit 41.7 % (37.0-53.0); Hemoglobin 13.6 g/dL (13.5-17.5); Mean Corpuscular HGB 29.8 pg (26.0-34.0); Mean Corpuscular HGB Conc 32.6 g/dL (31.5-36.5); Mean Corpuscular Volume 91 fL (80-100); Mean Platelet Volume 9.1 fL (9.1-12.4); Platelet Count 235 K/mm3 (150-400); RDW Coefficient Variation 13.5 % (11.7-14.2); Red Blood Cell Count 4.56 M/mm3 (4.30-5.90); White Blood Cell Count 7.71 K/mm3 (4.00-11.30)
[2024-01-20 05:51] LABS: Albumin, Blood 2.8 g/dL (3.4-5.0); Albumin/Globulin Ratio 0.9 (0.8-1.8); Bilirubin, Total 0.4 mg/dL (0.1-1.0); Bun/Creatinine Ratio 22.6 (12.0-20.0); Calcium, Blood 8.9 mg/dL (8.5-10.1); Creatinine, Blood 1.95 mg/dL (0.60-1.20); Total Protein, Blood 5.8 g/dL (6.4-8.2)
--- NOTE | 2024-01-20 06:43 | NUR ---
SHIFT SUMMARY NOC PT A/O X 3. FORGETFUL/CONFUSED AT TIME. PLEASANT AND COOPERATIVE WITH CARE. ED ADMIT FOR SYNCOPE AND LEVON. PT ABLE TO TRANSFER FROM GURNEY TO BED WITH 2PA. HAS INFUSION OF NS @ 75 ML/HR X 1 BAG RUNNING. ON TELE SINUS RHYTHM BBB IN 70'S. PT HAS HOME CPAP THAT WILL BE BRINGING IN FOR RT TO SET UP LATER TODAY. PT RX HAS BEEN RECONCILED. PT HAS HAD ELEVATED BP SINCE ADMIT TO ED AND LOWEST SO FAR HAS BEEN 172/78 AFTER 10 MG IV APRESOLINE GIVEN, NOTIFIED AND SAID NOT TO GIVE ANOTHER DOSE DUE TO PT BEING ORTHOSTATIC WITH SYNCOPAL EPISODE. PT CURRENTLY RESTING WITH BED IN LOWEST POSITION, AND CALL LIGHT WITHIN REACH.
[2024-01-20 07:12] VITALS: BP 175/84
[2024-01-20] MEDS ORDERED: Insulin Human Lispro 100 Units/ML 3ML Syringe SC SCH (07:30)
--- NOTE | 2024-01-20 07:48 | NUR ---
BEDSIDE SWALLOW EVALUATION PERFORMED. PT HOB AT 90 DEGREES CHIN TUCKED. 30 ML OF WATER AND PT TOLERATED WELL WITHOUT GAGGING OR ASPIRATING FLUID. ST EVALUATION ORDERED FOR TODAY FOR FOLLOW UP. PT DIET ALSO NEEDS TO BE ADRESSED PT IS DM2 AND EXTENSIVE CARDIAC HX.
[2024-01-20] MEDS ORDERED: ALPRAZolam 1 MG Tab PO SCH (08:00)
[2024-01-20] MEDS ORDERED: buPROPion HCL 150 MG TAB.SR.12H PO SCH (09:00)
[2024-01-20] MEDS ORDERED: Docusate Sodium 100 MG Cap PO SCH (09:00)
[2024-01-20] MEDS ORDERED: AmLODIPine Besylate 5 MG Tab PO SCH (09:00)
[2024-01-20] MEDS ORDERED: Tamsulosin HCl 0.4 MG Cap PO SCH (09:00)
[2024-01-20] MEDS ORDERED: Metoprolol Succinate 25 MG TABCR PO SCH (09:00)
[2024-01-20] MEDS ORDERED: Apixaban 5 MG Tab PO SCH (09:00)
[2024-01-20] MEDS ORDERED: PARoxetine HCl 20 MG Tab PO SCH (09:00)
[2024-01-20] MEDS ORDERED: BusPIRone HCl 10 MG Tab PO SCH (09:00)
[2024-01-20] MEDS ORDERED: Pravastatin Sodium 20 MG Tab PO SCH ×2 (09:00)
[2024-01-20] MEDS ORDERED: Losartan Potassium 50 MG Tab PO SCH (09:00)
[2024-01-20 10:35] VITALS: BP 159/70
[2024-01-20] MEDS ORDERED: NS 1,000 ML IV SCH (12:05)
[2024-01-20 15:12] VITALS: BP 150/80
--- NOTE | 2024-01-20 15:21 | NUR ---
Spiritual care visit conducted. Patient is sitting up inbed and alert. Deb asks for prayer. When then talk about the things that are on his heart. He shares about his family, his cousins family (he recently 01/14/24) and for his animals. He tells me that the made him think of his own mortality and wants God to watch over his family after he is gone. I gladly provide therapeutic listening, grief support and prayer. Patient and spouse, Merlyn responded well and showed signs of greater peace and voice much apprecaition for the visit. I will continue to remain available to patient and family.
[2024-01-20] MEDS ORDERED: LOSA50 PO (17:22)
[2024-01-20] MEDS ORDERED: METO25ER PO (17:22)
[2024-01-20] MEDS ORDERED: ELIQUIS5 M2 PO (17:24)
[2024-01-20] MEDS ORDERED: AMLO10 PO (17:24)
[2024-01-20] MEDS ORDERED: HUMALOG KW100 UNIT/1 SC (17:25)
--- NOTE | 2024-01-20 19:32 | NUR ---
DISCHARGE NOTE- PT WAS GIVEN VERBAL AND WRITTEN DISCHARGE INSTRUCTIONS AND ACKNOWLEDGED UNDERSTANDING OF THEM. IV AND TELE DC'D PRIOR TO DISCHARGE. SPOUSE PRESENT FOR DISCHARGE TEACHING. NO S&S OF DISTRESS AT THE TIME OF DISCHARGE. PT ESCORTED OUT VIA WC.
== END 2024-01-20 18:41 | disposition home health service (06) ==
LOC: ER 21:59 → MEDS 22:00
PROVIDERS: Emergency Medicine; Student in an Organized Health Care Education/Training Program; ADMIT Student in an Organized Health Care Education/Training Program
DX: R55 Syncope and collapse (principal); I48.91 Unspecified atrial fibrillation; I13.0 Hypertensive heart and chronic kidney disease with heart failure and stage 1 through stage 4 chronic kidney disease, or unspecified chronic kidney disease; E11.22 Type 2 diabetes mellitus with diabetic chronic kidney disease; N18.31 Chronic kidney disease, stage 3a; I50.32 Chronic diastolic (congestive) heart failure; J44.9 Chronic obstructive pulmonary disease, unspecified; G47.33 Obstructive sleep apnea (adult) (pediatric); I25.2 Old myocardial infarction; E78.5 Hyperlipidemia, unspecified; E11.40 Type 2 diabetes mellitus with diabetic neuropathy, unspecified; Z88.0 Allergy status to penicillin; Z88.1 Allergy status to other antibiotic agents; Z88.8 Allergy status to other drugs, medicaments and biological substances; Z79.899 Other long term (current) drug therapy; Z79.84 Long term (current) use of oral hypoglycemic drugs; Z87.891 Personal history of nicotine dependence
CPT/HCPCS: 51701; 70450; 70496; 70498; 72125; 80053; 81001; 82947; 83690; 83735; 85025; 85027; 85610; 86850; 86900; 86901; 92610; 94640; 94664; 94762; 96374; 97110; 97116; 97162; A9270; G0378; J0360; J7030; Q9967

== ENCOUNTER → 2024-03-16 | Outpatient (CLI) | payer MEDICARE, OTHER ==
[~2024-03-16] MED LIST changes: +AMLO10 PO; +CALC.25 PO; +ELIQUIS5 M2 PO; +HUMALOG KW100 UNIT/1 SC; +LOSA25 PO; +MUPIROCIN1 G1 TOP
== END | disposition home or self-care (01) ==
LOC: LAB 07:44 → LAB SHORT 07:44
DX: L97.522 Non-pressure chronic ulcer of other part of left foot with fat layer exposed (principal); M79.89 Other specified soft tissue disorders
CPT/HCPCS: 87070; 87077; 87147; 87186; 87205

== ENCOUNTER → 2024-03-16 | Outpatient (CLI) | payer MEDICARE, OTHER | END | disposition home or self-care (01) | LOC: LAB SHORT 10:53 | DX: L97.522 Non-pressure chronic ulcer of other part of left foot with fat layer exposed (principal); M79.89 Other specified soft tissue disorders; Z89.422 Acquired absence of other left toe(s) | CPT/HCPCS: 88305; 88311 ==

== ENCOUNTER → 2024-07-07 | Outpatient (CLI) | payer MEDICARE, OTHER ==
[2024-07-07 17:54] LABS: Calcium, Blood 9.4 mg/dL (8.5-10.1); Creatinine, Blood 2.25 mg/dL (0.60-1.20); Magnesium, Blood 2.8 mg/dL (1.6-2.4); Potassium, Blood 5.1 mmol/L (3.5-5.5)
== END ==
LOC: LAB 15:39 → LAB SHORT 15:39
PROVIDERS: Family Medicine
DX: I50.20 Unspecified systolic (congestive) heart failure (principal)
CPT/HCPCS: 80048; 83735

== ENCOUNTER → 2025-03-16 | Outpatient (CLI) | payer MEDICARE, OTHER | END | disposition home or self-care (01) | LOC: LAB 12:41 → LAB SHORT 12:41 | DX: E11.621 Type 2 diabetes mellitus with foot ulcer (principal) | CPT/HCPCS: 87070; 87205 ==

== ENCOUNTER 2025-04-05 16:19 | Emergency (ER) | payer MEDICARE, OTHER ==
[~2025-04-05] VITALS: Ht 167.6 cm; Wt 160.1 kg
[2025-04-05 18:34] VITALS: BP 148/74
[2025-04-08] MEDS ORDERED: ALBU90OI INH (14:37)
[2025-04-08] MEDS ORDERED: Aspir 8181 MG PO (14:38)
[2025-04-08] MEDS ORDERED: BUPR150ER PO (14:38)
[2025-04-08] MEDS ORDERED: VITAMIN D5000 UNIT PO (14:39)
[2025-04-08] MEDS ORDERED: VITAMIN B122500 MC1 PO (14:40)
[2025-04-08] MEDS ORDERED: Flonase 0.05% N16 GM (14:41)
[2025-04-08] MEDS ORDERED: NOVOLIN 70100 UNIT/3 (14:45)
[2025-04-08] MEDS ORDERED: Isosorbide Mono30 MG PO (14:45)
[2025-04-08] MEDS ORDERED: LACT PO (14:46)
[2025-04-08] MEDS ORDERED: MULTIVITAMIN (14:46)
[2025-04-08] MEDS ORDERED: MUPIROCIN2210 (14:47)
[2025-04-08] MEDS ORDERED: MIRALAX1714 PO (14:48)
[2025-04-08] MEDS ORDERED: Crestor40 MG PO (14:48)
[2025-04-08] MEDS ORDERED: POTA10T PO (14:48)
[2025-04-08] MEDS ORDERED: Triamcinolone A15 G3 TOP (14:50)
== END 2025-04-05 18:35 | disposition home or self-care (01) ==
LOC: ER 16:19
DX: S09.90XA Unspecified injury of head, initial encounter (principal); S70.01XA Contusion of right hip, initial encounter; W07.XXXA Fall from chair, initial encounter; I48.91 Unspecified atrial fibrillation; Z79.01 Long term (current) use of anticoagulants
CPT/HCPCS: 70450; 73502; 99284-25

== ENCOUNTER 2025-04-09 09:09 | Day surgery (SDC) | payer MEDICARE, OTHER ==
[2025-04-09] VITALS (7 sets, daily range): BP systolic 125–143; BP diastolic 78–101
[~2025-04-09 09:09] MED LIST changes: +Aspir 8181 MG PO; +Crestor40 MG PO; +Flonase 0.05% N16 GM; +Isosorbide Mono30 MG PO; +LACT PO; +MIRALAX1714 PO; +MULTIVITAMIN; +MUPIROCIN2210; +NOVOLIN 70100 UNIT/3; +POTA10T PO; +Triamcinolone A15 G3 TOP; +VITAMIN B122500 MC1 PO; +VITAMIN D5000 UNIT PO
[2025-04-09] MEDS ORDERED: Heparin Sodium 1000 Units/ML 10ML MDV ONE ×2 (10:56→10:57)
[2025-04-09] MEDS ORDERED: NS 1,000 ML IV ONE ×2 (10:56→10:57)
[2025-04-09] MEDS ORDERED: NS 500 ML IV ONE (10:56)
[2025-04-09] MEDS ORDERED: Nitroglycerin 2 MG/20 ML BTL ONE (10:57)
[2025-04-09] MEDS ORDERED: FentaNYL Citrate 50 MCG/ML 2 ML Injection ONE (11:31)
--- NOTE | 2025-04-09 15:00 | NUR ---
PT AND VERBALIZED UNDERSTANDING OF WRITTEN AND VERBAL D/C INST. L FT DRESSED /C DRSG. PT UP TO THE BATHROOM VIA W/C. TOLERATED TRANSFERING WELL. NEG BLEEDING OR SWELLING L GROIN AREA. IV REMOVED. PT WILL BE TAKEN OUT OF THE HRT CENTER VIA W/C.
== END 2025-04-09 15:00 | disposition home or self-care (01) ==
LOC: MHTC 09:09
DX: E11.51 Type 2 diabetes mellitus with diabetic peripheral angiopathy without gangrene (principal); I70.221 Atherosclerosis of native arteries of extremities with rest pain, right leg; L97.512 Non-pressure chronic ulcer of other part of right foot with fat layer exposed; I11.0 Hypertensive heart disease with heart failure; I50.20 Unspecified systolic (congestive) heart failure; I48.19 Other persistent atrial fibrillation; E78.5 Hyperlipidemia, unspecified; E11.42 Type 2 diabetes mellitus with diabetic polyneuropathy; J44.9 Chronic obstructive pulmonary disease, unspecified; F17.210 Nicotine dependence, cigarettes, uncomplicated; E66.9 Obesity, unspecified; Z79.01 Long term (current) use of anticoagulants; Z79.4 Long term (current) use of insulin; Z79.899 Other long term (current) drug therapy; Z88.5 Allergy status to narcotic agent; Z88.0 Allergy status to penicillin; Z88.8 Allergy status to other drugs, medicaments and biological substances
CPT/HCPCS: 76937; 99152; 99153; C1725; C1760; C1769; C1887; C1894; J1644; J3010; J7030; J7050; Q9967

== ENCOUNTER 2025-04-13 01:19 | Day surgery (SDC) | payer MEDICARE, OTHER ==
[2025-04-13] MEDS ORDERED: Lidocaine HCl 4% Cream 5 GM ONE (08:19)
== END 2025-04-13 23:00 | disposition home or self-care (01) ==
LOC: WOUND 01:19
DX: E11.621 Type 2 diabetes mellitus with foot ulcer (principal); L97.513 Non-pressure chronic ulcer of other part of right foot with necrosis of muscle; L97.412 Non-pressure chronic ulcer of right heel and midfoot with fat layer exposed; L97.512 Non-pressure chronic ulcer of other part of right foot with fat layer exposed; I70.233 Atherosclerosis of native arteries of right leg with ulceration of ankle; E11.51 Type 2 diabetes mellitus with diabetic peripheral angiopathy without gangrene; E11.42 Type 2 diabetes mellitus with diabetic polyneuropathy; I13.0 Hypertensive heart and chronic kidney disease with heart failure and stage 1 through stage 4 chronic kidney disease, or unspecified chronic kidney disease; E11.22 Type 2 diabetes mellitus with diabetic chronic kidney disease; N18.30 Chronic kidney disease, stage 3 unspecified; I50.9 Heart failure, unspecified; E78.00 Pure hypercholesterolemia, unspecified; I25.2 Old myocardial infarction; I48.91 Unspecified atrial fibrillation; J44.9 Chronic obstructive pulmonary disease, unspecified; G47.30 Sleep apnea, unspecified; M06.9 Rheumatoid arthritis, unspecified; Z86.14 Personal history of Methicillin resistant Staphylococcus aureus infection; Z87.891 Personal history of nicotine dependence; Z79.4 Long term (current) use of insulin; Z88.0 Allergy status to penicillin; Z88.8 Allergy status to other drugs, medicaments and biological substances
CPT/HCPCS: A6213; A9270; G0463

== ENCOUNTER 2025-04-30 01:30 | Day surgery (SDC) | payer MEDICARE, OTHER ==
[2025-04-30] MEDS ORDERED: Lidocaine HCl 4% Cream 5 GM ONE (08:19)
== END 2025-04-30 23:00 | disposition home or self-care (01) ==
LOC: WOUND 01:30
DX: E11.621 Type 2 diabetes mellitus with foot ulcer (principal); L97.513 Non-pressure chronic ulcer of other part of right foot with necrosis of muscle; L97.512 Non-pressure chronic ulcer of other part of right foot with fat layer exposed; E11.622 Type 2 diabetes mellitus with other skin ulcer; I70.233 Atherosclerosis of native arteries of right leg with ulceration of ankle; L97.312 Non-pressure chronic ulcer of right ankle with fat layer exposed; E11.51 Type 2 diabetes mellitus with diabetic peripheral angiopathy without gangrene; E11.42 Type 2 diabetes mellitus with diabetic polyneuropathy; I11.0 Hypertensive heart disease with heart failure; I50.9 Heart failure, unspecified; E78.00 Pure hypercholesterolemia, unspecified; I25.2 Old myocardial infarction; I48.91 Unspecified atrial fibrillation; M19.90 Unspecified osteoarthritis, unspecified site; J45.909 Unspecified asthma, uncomplicated; G47.30 Sleep apnea, unspecified
CPT/HCPCS: A6213; A9270

== ENCOUNTER 2025-05-05 03:06 | Day surgery (SDC) | payer MEDICARE, OTHER ==
[2025-05-05] MEDS ORDERED: Lidocaine HCl 4% Cream 5 GM ONE (11:29)
== END 2025-05-05 23:00 | disposition home or self-care (01) ==
LOC: WOUND 03:06
DX: E11.621 Type 2 diabetes mellitus with foot ulcer (principal); L97.512 Non-pressure chronic ulcer of other part of right foot with fat layer exposed; E11.622 Type 2 diabetes mellitus with other skin ulcer; I70.233 Atherosclerosis of native arteries of right leg with ulceration of ankle; L97.312 Non-pressure chronic ulcer of right ankle with fat layer exposed; E11.51 Type 2 diabetes mellitus with diabetic peripheral angiopathy without gangrene; E11.42 Type 2 diabetes mellitus with diabetic polyneuropathy; I11.0 Hypertensive heart disease with heart failure; I50.9 Heart failure, unspecified; E78.00 Pure hypercholesterolemia, unspecified; I25.2 Old myocardial infarction; I48.91 Unspecified atrial fibrillation; M19.90 Unspecified osteoarthritis, unspecified site; J45.909 Unspecified asthma, uncomplicated; G47.30 Sleep apnea, unspecified
CPT/HCPCS: A6213; A9270

== ENCOUNTER 2025-05-21 10:51 | Inpatient (IN) | payer MEDICARE, OTHER ==
[~2025-05-21] VITALS: Ht 180.3 cm; Wt 118.6 kg
[2025-05-21] MEDS ORDERED: FentaNYL Citrate 50 MCG/ML 2 ML Injection IV ONE (11:20)
[2025-05-21] MEDS ORDERED: Ondansetron HCl 2 MG / ML 2ML Vial IV ONE (11:20)
[2025-05-21] MEDS ORDERED: Clindamycin 600mg in D5W 50 ML IV ONE (11:20)
[2025-05-21 11:51] LABS: BASOPHILS ABSOLUTE AUTO 0.06 K/mm3 (0.00-0.23); BASOPHILS PERCENT AUTO 1 % (0-2); EOSINOPHILS ABSOLUTE AUTO 0.18 K/mm3 (0.00-0.68); EOSINOPHILS PERCENT AUTO 2 % (0-6); Hematocrit 40.4 % (37.0-53.0); Hemoglobin 13.1 g/dL (13.5-17.5); IMMATURE GRAN ABSOLUTE AUTO 0.05 K/mm3 (0.00-0.10); IMMATURE GRAN PERCENT AUTO 1 % (0-1); LYMPHOCYTES ABSOLUTE AUTO 1.49 K/mm3 (0.84-5.20); LYMPHOCYTES PERCENT AUTO 15 % (21-46); MONOCYTES ABSOLUTE AUTO 0.87 K/mm3 (0.16-1.47); MONOCYTES PERCENT AUTO 9 % (4-13); Mean Corpuscular HGB Conc 32.4 g/dL (31.5-36.5); Mean Corpuscular Volume 92 fL (80-100); NEUTROPHILS ABSOLUTE AUTO 7.29 K/mm3 (1.96-9.15); NEUTROPHILS PERCENT AUTO 73 % (41-73); NRBC ABSOLUTE 0.00 K/mm3 (0.00-0.02); NRBC Auto 0.0 /100 WBC (0.0-0.2); Platelet Count 380 K/mm3 (150-400); RDW Coefficient Variation 13.2 % (11.7-14.2); RDW Standard Deviation 44.5 fL (35.1-46.3)
[2025-05-21 12:15] LABS: Alanine Aminotransfer (ALT/SGP 21.0 U/L (12-78); Albumin, Blood 2.9 g/dL (3.4-5.0); Albumin/Globulin Ratio 0.7 (0.8-1.8); Anion Gap 6.0 mmol/L (3-11); Aspartate Aminotrans (AST/SGOT 15.0 U/L (12-37); Bilirubin, Total 0.5 mg/dL (0.1-1.0); Blood Urea Nitrogen 43.0 mg/dL (8-24); CO2, Blood 31.0 mmol/L (21-32); Calcium, Blood 9.7 mg/dL (8.5-10.1); Chloride, Blood 106.0 mmol/L (98-108); Creatinine, Blood 2.52 mg/dL (0.60-1.20); Globulin, Blood 4.1 g/dL (2.2-4.0); Glucose, Blood 85.0 mg/dL (70-99); Potassium, Blood 5.0 mmol/L (3.5-5.5); Sodium, Blood 138.0 mmol/L (136-145); Total Protein, Blood 7.0 g/dL (6.4-8.2)
[2025-05-21] MEDS ORDERED: Vancomycin (Pharmacy Consult) IV SCH (15:35)
[2025-05-21] MEDS ORDERED: Ipratropium/Albuterol SulF 2.5-0.5MG/3 ML Amp INH SCH ×2 (16:20→23:45)
[2025-05-21] MEDS ORDERED: Insulin Isoph 70 / Reg 30 100 Unit/ML 10ML Vial SC SCH (17:00)
[2025-05-21 17:38] VITALS: BP 117/94
--- NOTE | 2025-05-21 17:40 | NUR ---
ADMISSION NOTE: PATIENT ARRIVED TO THE UNIT VIA GURNEY AT 1650; PATIENT WAS SLID TRANSFERRED ONTO THE BED. PATIENT APPEARS ANXIOUS/NERVOUS/SHAKING/TEARFUL AT TIMES; STAYING "I AM ALWAYS COLD." PATIENT ORIENTED TO ROOM AND SETTLED, VITALS AND BLOOD SUGAR OBTAINED. PATIENT IN BED, CALL LIGHT WTHIN REACH, BED ALARM SET, NO SIGNS OR SYMPTOMS OF DISTRESS, PLAN OF CARE ONGOING.
[2025-05-21] MEDS ORDERED: Clindamycin Phosphate 300 MG in NS 50 ML IV SCH (18:00)
[2025-05-21] MEDS ORDERED: CLINDAMYCIN PHOSPHATE/D5W 50 ML IV SCH (18:00)
[2025-05-21] MEDS ORDERED: Cefepime HCl 2,000 MG in NS 100 ML IV SCH (18:00)
[2025-05-21] MEDS ORDERED: NS 250 ML IV PRN (18:15)
[2025-05-21 19:49] VITALS: BP 138/62
[2025-05-21] MEDS ORDERED: Lactobacil 2-S.Thermo-Bifido 1 1 Cap PO SCH (21:00)
[2025-05-22 04:33] VITALS: BP 133/96
[2025-05-22 05:30] LABS: BASOPHILS ABSOLUTE AUTO 0.07 K/mm3 (0.00-0.23); BASOPHILS PERCENT AUTO 1 % (0-2); EOSINOPHILS ABSOLUTE AUTO 0.32 K/mm3 (0.00-0.68); EOSINOPHILS PERCENT AUTO 4 % (0-6); Hematocrit 37.0 % (37.0-53.0); Hemoglobin 11.9 g/dL (13.5-17.5); IMMATURE GRAN ABSOLUTE AUTO 0.03 K/mm3 (0.00-0.10); IMMATURE GRAN PERCENT AUTO 0 % (0-1); LYMPHOCYTES ABSOLUTE AUTO 1.51 K/mm3 (0.84-5.20); LYMPHOCYTES PERCENT AUTO 17 % (21-46); MONOCYTES ABSOLUTE AUTO 0.74 K/mm3 (0.16-1.47); MONOCYTES PERCENT AUTO 8 % (4-13); Mean Corpuscular HGB Conc 32.2 g/dL (31.5-36.5); Mean Corpuscular Volume 91 fL (80-100); NEUTROPHILS ABSOLUTE AUTO 6.09 K/mm3 (1.96-9.15); NEUTROPHILS PERCENT AUTO 70 % (41-73); NRBC ABSOLUTE 0.00 K/mm3 (0.00-0.02); NRBC Auto 0.0 /100 WBC (0.0-0.2); Platelet Count 351 K/mm3 (150-400); RDW Coefficient Variation 13.1 % (11.7-14.2); RDW Standard Deviation 43.8 fL (35.1-46.3)
[2025-05-22 05:47] LABS: Alanine Aminotransfer (ALT/SGP 18 U/L (12-78); Albumin, Blood 2.6 g/dL (3.4-5.0); Albumin/Globulin Ratio 0.7 (0.8-1.8); Anion Gap 8 mmol/L (3-11); Aspartate Aminotrans (AST/SGOT 14 U/L (12-37); Bilirubin, Total 0.4 mg/dL (0.1-1.0); Blood Urea Nitrogen 38 mg/dL (8-24); C-REACTIVE PROTEIN, EXT RANGE 8.760 mg/dL (0.000-0.300); CO2, Blood 27 mmol/L (21-32); Calcium, Blood 8.8 mg/dL (8.5-10.1); Chloride, Blood 107 mmol/L (98-108); Creatinine, Blood 2.43 mg/dL (0.60-1.20); Globulin, Blood 3.8 g/dL (2.2-4.0); Glucose, Blood 101 mg/dL (70-99); Potassium, Blood 4.5 mmol/L (3.5-5.5); Sodium, Blood 137 mmol/L (136-145); Total Protein, Blood 6.4 g/dL (6.4-8.2); Vancomycin, Random 20.2 ug/mL
--- NOTE | 2025-05-22 06:29 | NUR ---
NELIA NOC SHIFT PT ADMITTED FOR SEPSIS . PT DOES NOT REQUIRE SUPPLEMENTAL OXYGEN. P. PT IS ALERT AND ORIENTED TIMES 3. PT IS COOPERATIVE WITH CARE AND ABLE TO MAKE NEEDS KNOWN TO STAFF. PT APPROPRIATE WITH CALL LIGHT DURING SHIFT, WATCHING TV. PT TAKES MEDICATION WHOLE WITH WATER. BED IS IN LOW POSITION, RAILS TIMES TWO, AND CALL LIGHT IS WITHIN REACH.
[2025-05-22 08:01] VITALS: BP 157/80
[2025-05-22] MEDS ORDERED: Polyethylene Glycol 3350 17 gm PO PRN (12:40)
--- NOTE | 2025-05-22 12:45 | NUR ---
CALLED AND SPOKE WITH DR. FITZPATRICK; INQUIRING ABOUT ELIQUIS AND PROCEDURE PLANNED FOR SATURDAY; PER DR. FITZPATRICK TO STOP THE ELIQUIS UNTIL AFTER THE PROCEDURE.
[2025-05-22] MEDS ORDERED: Albuterol HFA200 ACT/6.7 GM INH INH PRN (13:00)
[2025-05-22] MEDS ORDERED: Enoxaparin 30 MG/0.3 ML SYR SC SCH (15:00)
[2025-05-22] MEDS ORDERED: Insulin Isoph 70 / Reg 30 100 Unit/ML 10ML Vial SC SCH (16:30)
--- NOTE | 2025-05-22 16:50 | NUR ---
SHIFT SUMMARY: PATIENT IS A&OX3, CONFUSED, FORGETFUL, AND LABILE. PATIENT GETS UPSET EASILY, STARTS CRYING, WILL POUT. HE WILL EXPRESS UNDERSTANDING INITIALLY ONCE GIVEN INSTRUCTIONS, BUT WILL FORGET. PATIENT PULLS AT LINES, IV, PUREWICK, AND SCDS, AND DRESSINGS. PATIENT PENDING MRI OF FOOT AND PLAN FOR PROCEDURE ON SATURDAY. PATIENT IN BED, CALL LIGHT WITHIN REACH, NO SIGNS OR SYMPTOMS OF DISTRESS, PLAN OF CARE ONGOING. WOUND CARE COMPLETED PER ORDERS THIS SHIFT.
[2025-05-22 21:14] VITALS: BP 164/100
--- NOTE | 2025-05-23 05:56 | NUR ---
NELIA NOC SHIFT PT ADMITTED FOR SEPSIS . PT DOES NOT REQUIRE SUPPLEMENTAL OXYGEN. PT IS ALERT AND ORIENTED TIMES 3. PT IS COOPERATIVE WITH CARE AND ABLE TO MAKE NEEDS KNOWN TO STAFF. PT APPROPRIATE WITH CALL LIGHT DURING SHIFT, WATCHING TV. PT TAKES MEDICATION WHOLE WITH WATER. PER PT REQUEST, PAIN MEDICATION WAS ADMINISTERED AND AN ORDER FOR SEROQUEL OBTAINED FOR ANXIETY. BED IS IN LOW POSITION, RAILS TIMES TWO, AND CALL LIGHT IS WITHIN REACH.
[2025-05-23 06:40] LABS: BASOPHILS ABSOLUTE AUTO 0.09 K/mm3 (0.00-0.23); BASOPHILS PERCENT AUTO 1 % (0-2); EOSINOPHILS ABSOLUTE AUTO 0.42 K/mm3 (0.00-0.68); EOSINOPHILS PERCENT AUTO 5 % (0-6); Hematocrit 43.5 % (37.0-53.0); Hemoglobin 14.0 g/dL (13.5-17.5); IMMATURE GRAN ABSOLUTE AUTO 0.05 K/mm3 (0.00-0.10); IMMATURE GRAN PERCENT AUTO 1 % (0-1); LYMPHOCYTES ABSOLUTE AUTO 1.63 K/mm3 (0.84-5.20); LYMPHOCYTES PERCENT AUTO 18 % (21-46); MONOCYTES ABSOLUTE AUTO 0.98 K/mm3 (0.16-1.47); MONOCYTES PERCENT AUTO 11 % (4-13); Mean Corpuscular HGB Conc 32.2 g/dL (31.5-36.5); Mean Corpuscular Volume 90 fL (80-100); NEUTROPHILS ABSOLUTE AUTO 5.73 K/mm3 (1.96-9.15); NEUTROPHILS PERCENT AUTO 64 % (41-73); NRBC ABSOLUTE 0.00 K/mm3 (0.00-0.02); NRBC Auto 0.0 /100 WBC (0.0-0.2); Platelet Count 371 K/mm3 (150-400); RDW Coefficient Variation 13.0 % (11.7-14.2); RDW Standard Deviation 43.0 fL (35.1-46.3)
[2025-05-23 07:06] LABS: Alanine Aminotransfer (ALT/SGP 20.0 U/L (12-78); Albumin, Blood 2.7 g/dL (3.4-5.0); Albumin/Globulin Ratio 0.6 (0.8-1.8); Anion Gap 7.0 mmol/L (3-11); Aspartate Aminotrans (AST/SGOT 16.0 U/L (12-37); Bilirubin, Total 0.6 mg/dL (0.1-1.0); Blood Urea Nitrogen 33.0 mg/dL (8-24); CO2, Blood 27.0 mmol/L (21-32); Calcium, Blood 9.5 mg/dL (8.5-10.1); Chloride, Blood 104.0 mmol/L (98-108); Creatinine, Blood 2.29 mg/dL (0.60-1.20); Globulin, Blood 4.5 g/dL (2.2-4.0); Glucose, Blood 109.0 mg/dL (70-99); Potassium, Blood 4.4 mmol/L (3.5-5.5); Sodium, Blood 134.0 mmol/L (136-145); Total Protein, Blood 7.2 g/dL (6.4-8.2)
[2025-05-23] MEDS ORDERED: Ipratropium/Albuterol SulF 2.5-0.5MG/3 ML Amp INH PRN (07:25)
[2025-05-23 07:39] VITALS: BP 152/105
[2025-05-23] MEDS ORDERED: Isosorbide Mononitrate 30 MG TABCR PO SCH (09:00)
[2025-05-23] MEDS ORDERED: Potassium Chloride 10 Meq Tablet SA PO SCH (09:00)
[2025-05-23] MEDS ORDERED: Fluticasone 0.05% Nasal Spray SCH (09:00)
--- NOTE | 2025-05-23 09:44 | NUR ---
Pastoral care visitation conducted. Pt was alert and welcoming of pastoral presence. He displayed modest signs of memory displacement and was pleasantly antsy the duration. Consolatory presence and conversational guidance supplied with opportunity for emotional decompression. Pt's expressions were brief but seemed to soften in demeanor with empathic exchange. Solace of prayer extended and readily accepted by the pt who gave appreciation for the intercession. Pastoral support to remain available for subsequent spiritual intervention.
[2025-05-23 15:10] VITALS: BP 124/65
[2025-05-23] MEDS ORDERED: Insulin Isoph 70 / Reg 30 100 Unit/ML 10ML Vial SC SCH (16:30)
--- NOTE | 2025-05-23 19:39 | NUR ---
SHIFT SUMMARY PT IS A/O TO SELF AND PERSON. PT IS ANXIOUS AND FEARFUL R/T CONFUSION. NO ACUTE CHANGES THROUGHOUT THIS SHIFT. BEDREST AT THIS TIME. PURWICK IN PLACE DRAINING CLEAR, YELLOW URINE. ON RA WHILE AWAKE, SATS >95% AND ON CPAP WHILE ASLEEP. CONTINUING IV ANTIBIOTICS AND AWAITING EXPECTED PROCEDURE TOMORROW. AT BEDSIDE THROUGHOUT THIS AFTERNOON. PT IS PLEASANT AND COOPERATIVE WITH CARE.
[2025-05-24] VITALS (11 sets, daily range): BP systolic 106–158; BP diastolic 71–100
--- NOTE | 2025-05-24 05:57 | NUR ---
PT ALERT TO SELF ONLY, PLEASANTLY CONFUSED. IV WAS LEAKING REPLACED USING STERILE TECHNIQUE 18G IN RFA ON 1ST ATTEMPT. FLUSHING WITHOUT DIFFICULTY. PT SLEPT WITH CPAP ON. PURWIC URINARY DEVICE REPLACED AND DRAINING CLEAR YELLOW URINE. PT HAD DIFFICULTY NOT PUTTING PRESSURE ON R FOOT, STAFF CONTINUED TO FLOAT HEEL T/O SHIFT. NO ACUTE CHANGES THIS SHIFT.
[2025-05-24 08:41] LABS: BASOPHILS ABSOLUTE AUTO 0.08 K/mm3 (0.00-0.23); BASOPHILS PERCENT AUTO 1 % (0-2); EOSINOPHILS ABSOLUTE AUTO 0.51 K/mm3 (0.00-0.68); EOSINOPHILS PERCENT AUTO 5 % (0-6); Hematocrit 41.2 % (37.0-53.0); Hemoglobin 13.7 g/dL (13.5-17.5); IMMATURE GRAN ABSOLUTE AUTO 0.07 K/mm3 (0.00-0.10); IMMATURE GRAN PERCENT AUTO 1 % (0-1); LYMPHOCYTES ABSOLUTE AUTO 1.70 K/mm3 (0.84-5.20); LYMPHOCYTES PERCENT AUTO 18 % (21-46); MONOCYTES ABSOLUTE AUTO 0.97 K/mm3 (0.16-1.47); MONOCYTES PERCENT AUTO 10 % (4-13); Mean Corpuscular HGB Conc 33.3 g/dL (31.5-36.5); Mean Corpuscular Volume 89 fL (80-100); NEUTROPHILS ABSOLUTE AUTO 6.09 K/mm3 (1.96-9.15); NEUTROPHILS PERCENT AUTO 65 % (41-73); NRBC ABSOLUTE 0.00 K/mm3 (0.00-0.02); NRBC Auto 0.0 /100 WBC (0.0-0.2); Platelet Count 401 K/mm3 (150-400); RDW Coefficient Variation 13.0 % (11.7-14.2); RDW Standard Deviation 42.5 fL (35.1-46.3)
[2025-05-24 09:04] LABS: Alanine Aminotransfer (ALT/SGP 18.0 U/L (12-78); Albumin, Blood 2.6 g/dL (3.4-5.0); Albumin/Globulin Ratio 0.6 (0.8-1.8); Anion Gap 11.0 mmol/L (3-11); Aspartate Aminotrans (AST/SGOT 16.0 U/L (12-37); Bilirubin, Total 0.6 mg/dL (0.1-1.0); Blood Urea Nitrogen 39.0 mg/dL (8-24); CO2, Blood 24.0 mmol/L (21-32); Calcium, Blood 9.4 mg/dL (8.5-10.1); Chloride, Blood 106.0 mmol/L (98-108); Creatinine, Blood 2.47 mg/dL (0.60-1.20); Globulin, Blood 4.3 g/dL (2.2-4.0); Glucose, Blood 118.0 mg/dL (70-99); Potassium, Blood 4.6 mmol/L (3.5-5.5); Sodium, Blood 136.0 mmol/L (136-145); Total Protein, Blood 6.9 g/dL (6.4-8.2)
[2025-05-24] MEDS ORDERED: HYDROmorphone HCl/Pf 1MG SYR IV PRN ×2 (15:25→17:55)
[2025-05-24] MEDS ORDERED: HYDROmorphone HCl/Pf 1MG SYR IV ONE (15:25)
[2025-05-24] MEDS ORDERED: Bupivacaine 0.5% HCl 5 MG/ML 30MLVIAL ONE (15:50)
[2025-05-24] MEDS ORDERED: FentaNYL Citrate 50 MCG/ML 2 ML Injection ONE (16:48)
[2025-05-24] MEDS ORDERED: Dexamethasone Sod Phos 10 MG/ML 1ML VIAL ONE (17:18)
[2025-05-24] MEDS ORDERED: Ondansetron HCl 2 MG / ML 2ML Vial ONE (17:18)
[2025-05-24] MEDS ORDERED: Metoclopramide HCl 5MG / ML 2ML Vial IV PRN (17:45)
[2025-05-24] MEDS ORDERED: Ondansetron HCl 2 MG / ML 2ML Vial IV PRN (17:45)
[2025-05-24] MEDS ORDERED: FentaNYL Citrate 50 MCG/ML 2 ML Injection IV PRN ×3 (17:45)
--- NOTE | 2025-05-24 18:20 | NUR ---
SHIFT SUMMARY: A&O TO SELF AND SPOUSE. PLEASANTLY CONFUSED AND REDIRECTABLE. MEDICATED PER EMAR THIS SHIFT. SPOUSE AT BEDSIDE THROUGHOUT SHIFT. REMAINS BEDREST AT THIS TIME. PT TAKEN TO SURGERY THIS AFTERNOON FOR I&D ON R FOOT. RETURNED AND POST OP VITALS WERE STARTED ALONG WITH IV ABX . CALL LT REMAINS WITHIN REACH. BED IS IN THE LOWEST POSITION.
[2025-05-25 02:59] VITALS: BP 132/74
--- NOTE | 2025-05-25 05:09 | NUR ---
PT ALERT TO SELF ONLY, PLEASANTLY CONFUSED. DENIES PAIN AND SHOWS NO S/S OF PAIN AT THIS TIME. PURWIC URINARY DEVICE REPLACED AND DRAINING CLEAR YELLOW URINE. PT SLEPT WITH CPAP ON FOR PART OF THE NIGHT.
[2025-05-25 06:21] LABS: BASOPHILS ABSOLUTE AUTO 0.02 K/mm3 (0.00-0.23); BASOPHILS PERCENT AUTO 0 % (0-2); EOSINOPHILS ABSOLUTE AUTO 0.00 K/mm3 (0.00-0.68); EOSINOPHILS PERCENT AUTO 0 % (0-6); Hematocrit 40.7 % (37.0-53.0); Hemoglobin 13.1 g/dL (13.5-17.5); IMMATURE GRAN ABSOLUTE AUTO 0.08 K/mm3 (0.00-0.10); IMMATURE GRAN PERCENT AUTO 1 % (0-1); LYMPHOCYTES ABSOLUTE AUTO 0.84 K/mm3 (0.84-5.20); LYMPHOCYTES PERCENT AUTO 11 % (21-46); MONOCYTES ABSOLUTE AUTO 0.34 K/mm3 (0.16-1.47); MONOCYTES PERCENT AUTO 4 % (4-13); Mean Corpuscular HGB Conc 32.2 g/dL (31.5-36.5); Mean Corpuscular Volume 91 fL (80-100); NEUTROPHILS ABSOLUTE AUTO 6.65 K/mm3 (1.96-9.15); NEUTROPHILS PERCENT AUTO 84 % (41-73); NRBC ABSOLUTE 0.00 K/mm3 (0.00-0.02); NRBC Auto 0.0 /100 WBC (0.0-0.2); Platelet Count 397 K/mm3 (150-400); RDW Coefficient Variation 12.8 % (11.7-14.2); RDW Standard Deviation 42.5 fL (35.1-46.3)
[2025-05-25 06:51] LABS: Alanine Aminotransfer (ALT/SGP 17.0 U/L (12-78); Albumin, Blood 2.6 g/dL (3.4-5.0); Albumin/Globulin Ratio 0.6 (0.8-1.8); Anion Gap 10.0 mmol/L (3-11); Aspartate Aminotrans (AST/SGOT 11.0 U/L (12-37); Bilirubin, Total 0.4 mg/dL (0.1-1.0); Blood Urea Nitrogen 43.0 mg/dL (8-24); CO2, Blood 24.0 mmol/L (21-32); Calcium, Blood 9.6 mg/dL (8.5-10.1); Chloride, Blood 105.0 mmol/L (98-108); Creatinine, Blood 2.66 mg/dL (0.60-1.20); Globulin, Blood 4.3 g/dL (2.2-4.0); Glucose, Blood 202.0 mg/dL (70-99); Magnesium, Blood 2.2 mg/dL (1.6-2.4); Potassium, Blood 5.3 mmol/L (3.5-5.5); Sodium, Blood 134.0 mmol/L (136-145); Total Protein, Blood 6.9 g/dL (6.4-8.2)
[2025-05-25 07:49] VITALS: BP 136/70
[2025-05-25] MEDS ORDERED: Vancomycin (Pharmacy Consult) IV SCH (12:30)
--- NOTE | 2025-05-25 17:21 | NUR ---
DR FITZPATRICK IS AT THE BEDSIDE NOW PERFORMING DRESSING CHANGE. HE STATED HE IS GOING TO ORDER A WOUND VAC TO BE PLACED TOMORROW MORNING.
[2025-05-25 20:11] VITALS: BP 159/80
--- NOTE | 2025-05-25 20:15 | NUR ---
SHIFT SUMMARY- PT HAS HAD NO ACUTE CHANGE T/O THE DAY HE HAS HAD A CHANGE IN ABX. SURGICAL DRESSING WAS CHANGED BY DR FITZPATRICK AND THERE WILL BE ORDERS FOR A WOUND VAC TOMORROW MORNING. PT HAS NOT RECIEVED HIS 70/30 INSULIN THIS EVENING NIGHT RN IS AWARE IT WAS NOT YET GIVEN. BEDSIDE REPORT COMPLETED WITH NIGHT RN. PT IS RECIEVING A BREATHING Tx AT THE TIME OF REPORT BUT CONVEYS HE IS COLD AND WANTS A PAIN PILL WHEN HE IS ASKED DIRECTLY. PT IN BED CALL LIGHT IN REACH BED ALARM FOR SAFETY.
[2025-05-26 03:23] VITALS: BP 139/83
--- NOTE | 2025-05-26 04:09 | NUR ---
SHIFT SUMMARY PATIENT HAD NO ACUTE CHANGES. ALERT TO SELF AND PLEASANTLY CONFUSED. BEDREST WITH PUREWICK IN PLACE. DENIES CHEST PAIN, SOB, AND N/V. VSS/AFEBRILE. DRESSING TO RIGHT FOOT INTACT. DENIED RIGHT FOOT PAIN WHEN ASKED. CBG 193. RT IN FOR BREATHING TX. WARM BLANKETS PROVIDED. CALL LIGHT IN REACH. BED IN LOWEST POSITION. WILL CONTINUE TO MONITOR UNTIL DAY SHIFT NURSE ASSUMES CARE.
[2025-05-26 05:03] LABS: BASOPHILS ABSOLUTE AUTO 0.08 K/mm3 (0.00-0.23); BASOPHILS PERCENT AUTO 1 % (0-2); EOSINOPHILS ABSOLUTE AUTO 0.41 K/mm3 (0.00-0.68); EOSINOPHILS PERCENT AUTO 4 % (0-6); Hematocrit 39.0 % (37.0-53.0); Hemoglobin 12.4 g/dL (13.5-17.5); IMMATURE GRAN ABSOLUTE AUTO 0.08 K/mm3 (0.00-0.10); IMMATURE GRAN PERCENT AUTO 1 % (0-1); LYMPHOCYTES ABSOLUTE AUTO 1.48 K/mm3 (0.84-5.20); LYMPHOCYTES PERCENT AUTO 15 % (21-46); MONOCYTES ABSOLUTE AUTO 0.80 K/mm3 (0.16-1.47); MONOCYTES PERCENT AUTO 8 % (4-13); Mean Corpuscular HGB Conc 31.8 g/dL (31.5-36.5); Mean Corpuscular Volume 90 fL (80-100); NEUTROPHILS ABSOLUTE AUTO 7.05 K/mm3 (1.96-9.15); NEUTROPHILS PERCENT AUTO 71 % (41-73); NRBC ABSOLUTE 0.00 K/mm3 (0.00-0.02); NRBC Auto 0.0 /100 WBC (0.0-0.2); Platelet Count 428 K/mm3 (150-400); RDW Coefficient Variation 12.9 % (11.7-14.2); RDW Standard Deviation 42.7 fL (35.1-46.3)
[2025-05-26 05:30] LABS: Alanine Aminotransfer (ALT/SGP 17.0 U/L (12-78); Albumin, Blood 2.7 g/dL (3.4-5.0); Albumin/Globulin Ratio 0.6 (0.8-1.8); Anion Gap 9.0 mmol/L (3-11); Aspartate Aminotrans (AST/SGOT 12.0 U/L (12-37); Bilirubin, Total 0.3 mg/dL (0.1-1.0); Blood Urea Nitrogen 46.0 mg/dL (8-24); CO2, Blood 25.0 mmol/L (21-32); Calcium, Blood 9.4 mg/dL (8.5-10.1); Chloride, Blood 107.0 mmol/L (98-108); Creatinine, Blood 2.57 mg/dL (0.60-1.20); Globulin, Blood 4.2 g/dL (2.2-4.0); Glucose, Blood 167.0 mg/dL (70-99); Potassium, Blood 4.7 mmol/L (3.5-5.5); Sodium, Blood 136.0 mmol/L (136-145); Total Protein, Blood 6.9 g/dL (6.4-8.2)
[2025-05-26 07:46] VITALS: BP 164/82
[2025-05-26 15:11] VITALS: BP 138/89
--- NOTE | 2025-05-26 18:18 | NUR ---
SHIFT SUMMARY: A&O TO SELF ONLY. VERY PLEASANT WITH PEOPLE AND CARE. PHYSICAL THERAPY IN TO EVALUATE PT THIS SHIFT. WITH THIS, PT HAS GOTTEN UP OUT OF BED. REMAINS ON ROOM AIR WITH O2 SATS >90%. TREATED WITH IV ABX PER EMAR. WOUNDVAC PLACED ONTO PT R FOOT PER MD ORDER. PATENT AND SUCTIONING. PT REMAINS UP IN CHAIR AT THIS TIME FOR DINNER. CALL LT WITHIN REACH.
[2025-05-26 19:53] VITALS: BP 166/95
[2025-05-27 04:10] VITALS: BP 139/109
--- NOTE | 2025-05-27 04:54 | NUR ---
SHIFT SUMMARY NOC PT A/O TO SELF. CHILDLIKE AND CONFUSED, BUT COOPERATIVE WITH CARE. BP SLIGHTLY ELEVATED. HS CBG 153. PT WOUND VAC DRESSING CHANGED DUE TO LEAKING. PT HAS PUREWICK IN PLACE FOR INCONTINENCE. PT SLEPT FOR MAJORITY OF SHIFT. PT CURRENTLY RESTING WITH BED ALARM ON, BED IN LOWEST POSITION, AND CALL LIGHT WITHIN REACH.
[2025-05-27 07:37] VITALS: BP 193/111
[2025-05-27 07:51] VITALS: BP 170/102
[2025-05-27] MEDS ORDERED: CeFAZolin Sodium 2,000 MG in NS 100 ML IV SCH (08:00)
[2025-05-27 12:34] VITALS: BP 123/79
[2025-05-27 16:51] VITALS: BP 125/83
--- NOTE | 2025-05-27 17:10 | NUR ---
SHIFT SUMMARY: PT A&OX2; SELF AND PERSON, PATIENT OVERALL PLEASANT AND COOPERATIVE WITH CARE. PATIENT REMAINS IN BED THIS SHIFT, BEING REPOSITIONED, AND UTLIZING BED OFY, AND PUREWICK FOR ELIMINATION. HE HAD A PICC LINE PLACED TODAY IN PLAN TO D/C TO A SNF FOR 6WKS OF IV ANTIBIOTICS; BUT PER CARE COORDINATION HE WAS DENIED AT BOTH. PLAN IS FOR PATIENT TO STAY THROUGHOUT THE WEEKEND AND REEVALUATE ON SATURDAY. PATIENT IN BED, ALERT, CALL LIGHT WITHIN REACH, NO SIGNS OR SYMPTOMS OF DISTRESS, PLAN OF CARE ONGOING.
[2025-05-27 19:13] VITALS: BP 131/71
--- NOTE | 2025-05-27 22:03 | NUR ---
ROUNDED ON PT. FOUND HIM CRYING. STATING 10/10 PAIN IN RIGHT FOOT/TOE. PT HAD 5MG OXY WITH LITTLE EFFECT. OFFERED TO GET TYLENOL. PT FELT IT WOULDNT WORK. LEFT TO PULL MED FROM [facility] [employer] AND FOUND PT CALLING ON PHONE AND ASKING HER FOR SOMETHING FOR PAIN. GAVE PT 1MG DIALUDED PER MAR.
--- NOTE | 2025-05-27 22:20 | NUR ---
TOOK REPORT FROM RAFAEL MARQUEZ @ 0719 AND ASSUMED ALL CARE OF PT.
--- NOTE | 2025-05-28 05:22 | NUR ---
SHIFT SUMMARY NOC PT A/O TO SELF. CONFUSED BUT COOPERATIVE. VSS. THIS RN ASSUMED CARE OF PT @ 2220 LAST NIGHT. PRIOR TO ASSUMING CARE PT RECEIVED BEDTIME MEDICATIONS ALONG WITH OXY AND DILAUDID FOR R FOOT PAIN. PT WOUND VAC DRESSING C/D/I AND WRAPPED WITH ADDITIONAL PROTECTION DUE TO PT RUBBING FEET AT END OF BED. WOUND VAC SETTING PER ORDERS. PT HAS PICC IN EDITH, AND PUREWICK IN PLACE FOR INCONTINENCE. PT CURRENTLY RESTING WITH BED IN LOWEST POSITION, AND CALL LIGHT WITHIN REACH.
[2025-05-28 05:27] VITALS: BP 150/102
[2025-05-28 07:12] VITALS: BP 144/91
--- NOTE | 2025-05-28 12:34 | NUR ---
WOUND VAC DRESSING CHANGED BY THIS RN ALONG WITH WOUND CARE PROVIDED TO OTHER WOUND LOCATED ON THE R FOOT.
--- NOTE | 2025-05-28 16:19 | NUR ---
SHIFT SUMMARY: NO EVENTS OR CHANGES WITH THE PATIENT THROUGHOUT THE SHIFT. WOUND VAC AND WOUND CARE PREFORMED TODAY AND CHG BATH FOR PICC LINE. HE CONTINUES TO GET IV ANTIBIOTICS AND PENDING SNF PLACEMENT. HE IS IN BED, Q2 HOUR TURNS, CALL LIGHT WITHIN REACH, BED ALARM ON, NO SIGNS OR SYMPTOMS OF DISTRESS, PLAN OF CARE ONGOING.
[2025-05-28 16:25] VITALS: BP 120/84
[2025-05-28 19:48] VITALS: BP 155/95
[2025-05-29] MEDS ORDERED: HYDROmorphone HCl/Pf 1MG SYR IV PRN (00:35)
[2025-05-29 04:42] VITALS: BP 133/80
--- NOTE | 2025-05-29 06:20 | NUR ---
SUMMARY ASLEEP COMFORTABLY W/ CPAP ON. A&O X2 BUT FINALLY REMEMBER TODAY'S HOLIDAY. CHECKED SKIN GOOD AND ROLLED TO SIDE. MAINTAINED PATENCY OF WOUND VAC DRAIN. PURWICK DRAINING WELL. KEPT FOOT WRAPPED AND NO PRESSURE APPLIED. WOUND VAC HAS ZERO DRAIN TONIGHT. NO CONCERN AT NIGHT. STILL AWAITING RE-EVALUATION OF PLACEMENT FACILITY ON DISCHARGE.
[2025-05-29 07:13] VITALS: BP 153/80
[2025-05-29] MEDS ORDERED: Vancomycin (Pharmacy Consult) IV SCH (07:45)
[2025-05-29] MEDS ORDERED: Vancomycin HCL 2,500 MG in NS 500 ML IV ONE (08:10)
[2025-05-29 16:04] VITALS: BP 129/73
--- NOTE | 2025-05-29 17:02 | NUR ---
CALLED DR GARCIA. RE CBG 110. INSULIN DUE OF 35 UNITS. ADJUSTED TO 20 U THIS DOSE.
--- NOTE | 2025-05-29 17:18 | NUR ---
PT CONTINUES TO BE ANXIOUS AND SOME CHILDLIKE. VERY PLEASANT AND COOP. DID HAVE BM TODAY. NO NEW CONCERNS NOTED. PENDING SNF PLACEMENT ON SATURDAY FOR ABX. DID GET PAIN PILL TODAY. NO OTHER NEW CONCERNS BED IN LOW POSITIOIN, CALL LITE IN REACH, CALLS APPAOP
[2025-05-29 19:39] VITALS: BP 142/119
[2025-05-30 04:37] VITALS: BP 155/109
[2025-05-30] MEDS ORDERED: Miconazole Nitrate 2% 85 GM PWD TOP SCH (05:05)
--- NOTE | 2025-05-30 07:11 | NUR ---
SUMMARY A&O X2. STILL MANIFESTING CHILD BEHAVIOUR OFTEN DUE TO DEMENTIA HX. ISSA-CARE APPLIED, CLEANED RASHES ON ABD FOLDS & APPLIED TOPICAL ANTIBX, PURWICK CHANGED , KEPT DRY, REPOSITIONED ACCDG. CHECKED WOUND VAC PATENCY BUT NO DRAIN STILL. ORDERED ANTI-FUNGAL POWDER FOR EXTRA PROTECTION AND COMFORT ON RED ABDOMINAL FOLDS. CHANGED BED SHEET COMPLETELY AND KEPT DRY. SEEN PT ATTEMPTING TO PULL OUT PICC LINE W/ TAPE PARTIALLY CAME OFF. REDRESSED PICC LINE DRESSING ASEPTICALLY AND WRAPPED NICELY W/ COBAN [employer] ELASTIC CLOTH. KEPT COMFORTABLE AT NIGHT AND EASILY GETS INTO SLEEP. VSS ON RA.
--- NOTE | 2025-05-30 08:00 | NUR ---
PT PLEASANT CHILDLIKE, A/O X1-2, KNOWS NAME, NAME. HIS , KNOWS IN HOSP, BUT NOT NAME, AND YR ONLY. NOT ABLE TO ANS DATE, PRESIDENT, OR ANY DETAILS. KNOWS WANTS FOOT TO HEAL AND GET HOME. OFTEN GETS TEARFUL. H/R REG, NO MURMUR NOTED, NO TELE. LUNGS CLEAR, RESP EASY, UNLABORED, R/A. BT X4 LAST BM YESTERDAY. VIODS PUREWICK. TURN Q2. NO OTHER NEW CONCERNS NOTED. BED IN LOW [id number], CALL LITE IN REACH, CALLS APPROP
[2025-05-30 08:13] VITALS: BP 160/80
[2025-05-30 17:43] VITALS: BP 138/82
--- NOTE | 2025-05-30 19:33 | NUR ---
PT PLEASANT AND COOP TODAY. REMAINS CONFUSED AND CHILDLIKE WITH OCC TEARFULNESS. DID MEDICATE FOR PAIN X1 TODAY. ABX PER EMAR. REPLACED PUREWICK TODAY. PENDING D/C TO SNF TOMORROW. NO OTHER NEW CONCERNS NOTED. BED IN LOW POSITION, CALL LITE IN REACH, BED ALARM ON FOR SAFETY
[2025-05-30 20:07] VITALS: BP 132/96
[2025-05-31 04:51] VITALS: BP 148/60
--- NOTE | 2025-05-31 07:33 | NUR ---
SUMMARY PLEASANTLY FORGETFUL, SLIGHT DISORIENTED DUE TO DEMENTIA. COOPERATIVE TO CARE. FREQUENTLY PULLS OUT PURWICK AND REPLACED TWICE. ENSURED HYGIENE AND CARE FOR PERINEUM AND REDNESS ON ABDOMINAL FLAPS. HAD 1 PAIN EPISODE TONIGHT AND RELIEVED BY OXYCODONE THEREAFTER. WOUND VAC HAS NO DRAIN, WOUND APPEARS GOOD WITH DAILY DRESSING CHANGES. . STILL ON BED REST.
[2025-05-31 08:44] VITALS: BP 147/84
[2025-05-31 16:17] VITALS: BP 117/86
--- NOTE | 2025-05-31 20:08 | NUR ---
SHIFT SUMMARY PT A&OX2. PT HAS CONFUSION. PT ADMITTED DUE TO SEPSIS. PT REPORTS NO SOB/CHEST PAIN. PT REPORTS PAIN, PAIN MANAGED PER EMAR. PT WOUND VAC CHANGED TODAY BY TOOL OPERATOR. PASSED ON TO NIGHT RN THAT DRESSING ON FOOT NEEDS CHANGED PER ORDER. VSS. PT COOROPERATIVE WITH CARE, JUST CONFUSED, PERWICK D/C. PT INC OF URINE AND BM, ATTENDS IN PLACE, CHANGED PRN. PLAN IS AWAITING PLACEMENT. AT BEDSIDE DURING END OF SHIFT. PT IN BED, BED IN LOWEST POSITION, CALL LIGHT IN REACH.
[2025-05-31 21:01] VITALS: BP 153/92
[2025-06-01 06:25] VITALS: BP 147/73
--- NOTE | 2025-06-01 07:25 | NUR ---
SUMMARY STILL PLEASANTLY CONFUSED. WOUND DRESSING CHANGE DONE ASEPTICALLY. SLEPT WELL CONTINOUSLY AFTER A DOSE OF SEROQUEL. ENFORCED HYGIENE AND TOPICAL MEDS. NO CONCERN AT NIGHT.
[2025-06-01 07:35] VITALS: BP 156/85
[2025-06-01 09:57] LABS: BASOPHILS ABSOLUTE AUTO 0.07 K/mm3 (0.00-0.23); BASOPHILS PERCENT AUTO 1 % (0-2); EOSINOPHILS ABSOLUTE AUTO 0.47 K/mm3 (0.00-0.68); EOSINOPHILS PERCENT AUTO 9 % (0-6); Hematocrit 41.3 % (37.0-53.0); Hemoglobin 13.6 g/dL (13.5-17.5); IMMATURE GRAN ABSOLUTE AUTO 0.04 K/mm3 (0.00-0.10); IMMATURE GRAN PERCENT AUTO 1 % (0-1); LYMPHOCYTES ABSOLUTE AUTO 1.54 K/mm3 (0.84-5.20); LYMPHOCYTES PERCENT AUTO 29 % (21-46); MONOCYTES ABSOLUTE AUTO 0.69 K/mm3 (0.16-1.47); MONOCYTES PERCENT AUTO 13 % (4-13); Mean Corpuscular HGB Conc 32.9 g/dL (31.5-36.5); Mean Corpuscular Volume 88 fL (80-100); NEUTROPHILS ABSOLUTE AUTO 2.45 K/mm3 (1.96-9.15); NEUTROPHILS PERCENT AUTO 47 % (41-73); NRBC ABSOLUTE 0.00 K/mm3 (0.00-0.02); NRBC Auto 0.0 /100 WBC (0.0-0.2); Platelet Count 289 K/mm3 (150-400); RDW Coefficient Variation 13.0 % (11.7-14.2); RDW Standard Deviation 42.0 fL (35.1-46.3)
[2025-06-01 10:28] LABS: Alanine Aminotransfer (ALT/SGP 9.0 U/L (12-78); Albumin, Blood 2.7 g/dL (3.4-5.0); Albumin/Globulin Ratio 0.7 (0.8-1.8); Anion Gap 8.0 mmol/L (3-11); Aspartate Aminotrans (AST/SGOT 16.0 U/L (12-37); Bilirubin, Total 0.3 mg/dL (0.1-1.0); Blood Urea Nitrogen 45.0 mg/dL (8-24); CO2, Blood 27.0 mmol/L (21-32); Calcium, Blood 10.5 mg/dL (8.5-10.1); Chloride, Blood 105.0 mmol/L (98-108); Creatinine, Blood 2.35 mg/dL (0.60-1.20); Globulin, Blood 3.7 g/dL (2.2-4.0); Glucose, Blood 169.0 mg/dL (70-99); Potassium, Blood 4.8 mmol/L (3.5-5.5); Sodium, Blood 135.0 mmol/L (136-145); Total Protein, Blood 6.4 g/dL (6.4-8.2)
[2025-06-01 10:35] LABS: Vancomycin, Trough 33.0 ug/mL (5.0-10.0)
[2025-06-01 15:47] VITALS: BP 131/80
--- NOTE | 2025-06-01 20:03 | NUR ---
SHIFT SUMMARY PT A&OX2. PT HAS CONFUSION. PT ADMITTED DUE TO SEPSIS. PT REPORTS NO CHEST PAIN/SOB. PT REPORTS PAIN, PAIN MANAGED PER EMAR. VSS. PT COOROPERATIVE WITH CARE, JUST HAS CHILDLIKE BEHAVIOR. PT INC OF URINE AND BM. ATTENDS IN PLACE CHANGED PRN. PLAN IS AWAITING PLACEMENT. LABS WERE DRAWN TODAY VIA PICC. VANCO TROUGH ELEVATED. PHARMACY NOTIFIED AND KNOWS TO ADJUST DOSAGE. PLAN IS TO GO TO [facility] AT TEN AM, PASSED TO NIGHT RN. WOUND VAC AND DRESSING INTACT. NO DRAINAGE NOTED. PT IN BED, BED IN LOWEST POSITION, CALL LIGHT IN REACH.
[2025-06-01 20:09] VITALS: BP 124/88
--- NOTE | 2025-06-02 03:08 | NUR ---
FOAM MACHINE OPERATOR SUMMARY: NO ACUTE EVENTS T/O SHIFT. PT TO D/C TO [facility] 06/02/25 AT 1000. POWER PICC FLUSHES WITH EASE. FALL PRECAUTIONS IN PLACE. TURN SCHEDULE IN PLACE. CARES ONGOING ORDERED.
[2025-06-02 05:43] VITALS: BP 164/96
[2025-06-02 06:15] LABS: Creatinine, Blood 2.42 mg/dL (0.60-1.20); Vancomycin, Random 27.9 ug/mL
[2025-06-02 07:36] VITALS: BP 145/97
[2025-06-02] MEDS ORDERED: MULVITA PO (13:32)
[2025-06-02] MEDS ORDERED: VANCOMYCIN HCL1 G1 IV (13:43)
--- NOTE | 2025-06-02 15:30 | NUR ---
DISCHARGED 152, WOUND VAC STAYED HERE, ACCOMPANIIED TO [facility] PICC TO STAY OF V VANCOMYCIN, PLEASANT TO CARE,
== END 2025-06-02 15:20 | DRG 623 ==
LOC: ER 10:51 → MEDS 10:52
PROVIDERS: Emergency Medicine; Family Medicine; Internal Medicine; Podiatrist Foot & Ankle Surgery; ADMIT Hospitalist
PROC: 3E03329 Introduction of Other Anti-infective into Peripheral Vein, Percutaneous Approach (ICD-10-PCS; 2025-05-21)
PROC: 0QBN0ZX Excision of Right Metatarsal, Open Approach, Diagnostic (ICD-10-PCS; 2025-05-24)
PROC: 0LBV0ZZ Excision of Right Foot Tendon, Open Approach (ICD-10-PCS; principal; 2025-05-24 16:30)
PROC: 02HV33Z Insertion of Infusion Device into Superior Vena Cava, Percutaneous Approach (ICD-10-PCS; 2025-05-27)
DX: E11.69 Type 2 diabetes mellitus with other specified complication (principal); F03.94 Unspecified dementia, unspecified severity, with anxiety; I13.0 Hypertensive heart and chronic kidney disease with heart failure and stage 1 through stage 4 chronic kidney disease, or unspecified chronic kidney disease; I48.20 Chronic atrial fibrillation, unspecified; I50.22 Chronic systolic (congestive) heart failure; M86.171 Other acute osteomyelitis, right ankle and foot; J96.11 Chronic respiratory failure with hypoxia; L97.416 Non-pressure chronic ulcer of right heel and midfoot with bone involvement without evidence of necrosis; Z66 Do not resuscitate; J44.9 Chronic obstructive pulmonary disease, unspecified; E66.9 Obesity, unspecified; E11.51 Type 2 diabetes mellitus with diabetic peripheral angiopathy without gangrene; B95.61 Methicillin susceptible Staphylococcus aureus infection as the cause of diseases classified elsewhere; B95.2 Enterococcus as the cause of diseases classified elsewhere; M51.369 Other intervertebral disc degeneration, lumbar region without mention of lumbar back pain or lower extremity pain; G47.33 Obstructive sleep apnea (adult) (pediatric); M19.90 Unspecified osteoarthritis, unspecified site; E78.5 Hyperlipidemia, unspecified; E11.40 Type 2 diabetes mellitus with diabetic neuropathy, unspecified; D63.1 Anemia in chronic kidney disease; E11.621 Type 2 diabetes mellitus with foot ulcer; N18.4 Chronic kidney disease, stage 4 (severe); L97.519 Non-pressure chronic ulcer of other part of right foot with unspecified severity; E11.22 Type 2 diabetes mellitus with diabetic chronic kidney disease; E11.649 Type 2 diabetes mellitus with hypoglycemia without coma; Z88.5 Allergy status to narcotic agent; Z88.8 Allergy status to other drugs, medicaments and biological substances; Z99.81 Dependence on supplemental oxygen; Z88.0 Allergy status to penicillin; Z91.81 History of falling; Z79.01 Long term (current) use of anticoagulants; Z79.82 Long term (current) use of aspirin; Z79.891 Long term (current) use of opiate analgesic; Z79.899 Other long term (current) drug therapy; Z79.4 Long term (current) use of insulin; I25.2 Old myocardial infarction; Z86.14 Personal history of Methicillin resistant Staphylococcus aureus infection; Z87.891 Personal history of nicotine dependence
CPT/HCPCS: 36415; 36569; 71045; 72100; 73630; 73720; 80053; 80202; 82565; 82947; 83036; 83735; 85025; 85651; 86140; 87040; 87070; 87071; 87075; 87077; 87147; 87186; 87205; 88307; 88311; 94640; 94664; 94760; 94762; 96365; 96366; 96367; 96372; 96375; 96376; 97110; 97162; 97530; 99285-25; A6253; A9270; A9579; C1751; G0378; J0690; J0692; J0736; J1100; J1171; J1650; J1815; J2405; J2704; J3010; J3370; J3373; J7040; J7050; J7120

== ENCOUNTER → 2025-07-12 | Outpatient (CLI) | payer MEDICARE, OTHER ==
[~2025-07-12] MED LIST changes: +CEFP200 PO; +INSULIN GL100 UNIT/2 SC; +JARDIANCE10 MG PO; +MULVITA PO; +Prednisone10 MG PO; +SENNA LAXATIVE8.6 MG PO; +VANCOMYCIN HCL1 G1 IV
== END | disposition home or self-care (01) ==
LOC: LAB 17:35 → LAB SHORT 17:35
DX: E11.621 Type 2 diabetes mellitus with foot ulcer (principal); M86.671 Other chronic osteomyelitis, right ankle and foot
CPT/HCPCS: 87071; 87075; 87077; 87186; 87205; 88305; 88311

== ENCOUNTER → 2025-07-22 | Outpatient (CLI) | payer MEDICARE, OTHER | LOC: LAB SHORT 15:21 → LAB 15:21 | DX: M86.171 Other acute osteomyelitis, right ankle and foot (principal); B95.61 Methicillin susceptible Staphylococcus aureus infection as the cause of diseases classified elsewhere; E11.621 Type 2 diabetes mellitus with foot ulcer; L89.893 Pressure ulcer of other site, stage 3 | CPT/HCPCS: 87070; 87075; 87205 ==

== ENCOUNTER 2025-07-23 11:26 | Emergency (ER) | payer MEDICARE, OTHER ==
[~2025-07-23] VITALS: Ht 182.9 cm; Wt 127.0 kg
[2025-07-23] MEDS ORDERED: Haloperidol Lactate Inj. 5 MG/ML Injection IV ONE (12:05)
[2025-07-23 12:15] LABS: Alanine Aminotransfer (ALT/SGP 19.0 U/L (12-78); Albumin, Blood 2.4 g/dL (3.4-5.0); Albumin/Globulin Ratio 0.6 (0.8-1.8); Anion Gap 11.0 mmol/L (3-11); Aspartate Aminotrans (AST/SGOT 18.0 U/L (12-37); Bilirubin, Total 0.5 mg/dL (0.1-1.0); Blood Urea Nitrogen 50.0 mg/dL (8-24); CO2, Blood 23.0 mmol/L (21-32); Calcium, Blood 8.7 mg/dL (8.5-10.1); Chloride, Blood 105.0 mmol/L (98-108); Creatinine, Blood 2.5 mg/dL (0.60-1.20); Globulin, Blood 3.9 g/dL (2.2-4.0); Glucose, Blood 280.0 mg/dL (70-99); Potassium, Blood 4.6 mmol/L (3.5-5.5); Sodium, Blood 134.0 mmol/L (136-145); Total Protein, Blood 6.3 g/dL (6.4-8.2)
[2025-07-23 12:18] LABS: BASOPHILS ABSOLUTE AUTO 0.04 K/mm3 (0.00-0.23); BASOPHILS PERCENT AUTO 1 % (0-2); EOSINOPHILS ABSOLUTE AUTO 0.16 K/mm3 (0.00-0.68); EOSINOPHILS PERCENT AUTO 2 % (0-6); Hematocrit 28.5 % (37.0-53.0); Hemoglobin 9.0 g/dL (13.5-17.5); IMMATURE GRAN ABSOLUTE AUTO 0.02 K/mm3 (0.00-0.10); IMMATURE GRAN PERCENT AUTO 0 % (0-1); LYMPHOCYTES ABSOLUTE AUTO 1.13 K/mm3 (0.84-5.20); LYMPHOCYTES PERCENT AUTO 16 % (21-46); MONOCYTES ABSOLUTE AUTO 0.45 K/mm3 (0.16-1.47); MONOCYTES PERCENT AUTO 6 % (4-13); Mean Corpuscular HGB Conc 31.6 g/dL (31.5-36.5); Mean Corpuscular Volume 90 fL (80-100); NEUTROPHILS ABSOLUTE AUTO 5.47 K/mm3 (1.96-9.15); NEUTROPHILS PERCENT AUTO 75 % (41-73); NRBC ABSOLUTE 0.00 K/mm3 (0.00-0.02); NRBC Auto 0.0 /100 WBC (0.0-0.2); Platelet Count 297 K/mm3 (150-400); RDW Coefficient Variation 14.8 % (11.7-14.2); RDW Standard Deviation 48.3 fL (35.1-46.3)
[2025-07-23 12:54] LABS: Source, Urine Clean Catch
[2025-07-23 13:04] LABS: Bilirubin, Urine Neg (Neg); Color, Urine Yellow (P-Yellow); Glucose Qualitative, Urine 4+ (Neg); Ketones, Urine Neg (Neg); Leukocyte Esterase, Urine Neg (Neg); Protein, Urine 3+ (Neg); Specific Gravity, Urine 1.015 (1.003-1.022); Urobilinogen, Urine NORM (Normal)
[2025-07-23 13:24] LABS: Red Blood Cells, Urine Not Seen /hpf (0-2); White Blood Cells, Urine Not Seen /hpf (0-5)
[2025-07-23 16:00] VITALS: BP 125/79
== END 2025-07-23 18:51 ==
LOC: ER 11:26
PROVIDERS: Physician Assistant
DX: R41.0 Disorientation, unspecified (principal); F41.9 Anxiety disorder, unspecified; G47.30 Sleep apnea, unspecified; E11.9 Type 2 diabetes mellitus without complications; I11.0 Hypertensive heart disease with heart failure; I50.9 Heart failure, unspecified; Z87.891 Personal history of nicotine dependence; Z79.4 Long term (current) use of insulin; Z79.82 Long term (current) use of aspirin; Z79.51 Long term (current) use of inhaled steroids; Z79.899 Other long term (current) drug therapy; Z88.0 Allergy status to penicillin; Z91.048 Other nonmedicinal substance allergy status; Z88.8 Allergy status to other drugs, medicaments and biological substances
CPT/HCPCS: 51701; 70450; 74176; 80053; 81001; 85025; 96374; 99285-25; J1630

== ENCOUNTER 2025-08-02 01:00 | Day surgery (SDC) | payer MEDICARE, OTHER | END 2025-08-02 23:00 | disposition home or self-care (01) | LOC: WOUND 01:00 | DX: E11.69 Type 2 diabetes mellitus with other specified complication (principal); M86.671 Other chronic osteomyelitis, right ankle and foot; E11.621 Type 2 diabetes mellitus with foot ulcer; L97.519 Non-pressure chronic ulcer of other part of right foot with unspecified severity; I13.0 Hypertensive heart and chronic kidney disease with heart failure and stage 1 through stage 4 chronic kidney disease, or unspecified chronic kidney disease; E11.22 Type 2 diabetes mellitus with diabetic chronic kidney disease; N18.30 Chronic kidney disease, stage 3 unspecified; I50.9 Heart failure, unspecified; N25.81 Secondary hyperparathyroidism of renal origin; F33.1 Major depressive disorder, recurrent, moderate; E78.00 Pure hypercholesterolemia, unspecified; I25.10 Atherosclerotic heart disease of native coronary artery without angina pectoris; I25.2 Old myocardial infarction; J44.9 Chronic obstructive pulmonary disease, unspecified; I48.91 Unspecified atrial fibrillation; M19.90 Unspecified osteoarthritis, unspecified site; G47.30 Sleep apnea, unspecified; K21.9 Gastro-esophageal reflux disease without esophagitis; Z66 Do not resuscitate; Z87.891 Personal history of nicotine dependence; Z79.4 Long term (current) use of insulin; Z79.84 Long term (current) use of oral hypoglycemic drugs; Z79.01 Long term (current) use of anticoagulants; Z88.0 Allergy status to penicillin; Z88.8 Allergy status to other drugs, medicaments and biological substances; Z91.048 Other nonmedicinal substance allergy status | CPT/HCPCS: G0463 ==

== ENCOUNTER 2025-08-20 10:03 | Day surgery (SDC) | payer MEDICARE, OTHER ==
[2025-08-20] VITALS (9 sets, daily range): BP systolic 137–155; BP diastolic 72–101
[~2025-08-20] VITALS: Ht 180.3 cm; Wt 109.0 kg
[2025-08-20] MEDS ORDERED: NS 1,000 ML IV ONE ×2 (10:49→11:28)
[2025-08-20] MEDS ORDERED: Heparin Sodium 1000 Units/ML 10ML MDV ONE ×2 (10:49→11:28)
[2025-08-20] MEDS ORDERED: NS 250 ML IV ONE (10:49)
[2025-08-20] MEDS ORDERED: FentaNYL Citrate 50 MCG/ML 2 ML Injection ONE (11:27)
--- NOTE | 2025-08-20 13:15 | NUR ---
RECEIVED REPROT FROM RAFAEL HERRERA AND ASSUMING CARE. PT SPOUSE AT BEDSIDE. PT LAYING SUPINE, VSS. LEFT GROIN ACCESS C/D/I NO BLEEDING OR HEMATOMA NOTED.
--- NOTE | 2025-08-20 14:13 | NUR ---
ATTEMPTED TO CALL REPORT TO NATALY BARILLAS TO TAKE IT AT THIS TIME.
--- NOTE | 2025-08-20 14:35 | NUR ---
HOB UP 30 DEGREES, EATING AND TAKING SIPS. PT SPOUSE AT BEDSIDE.
--- NOTE | 2025-08-20 15:38 | NUR ---
REPROT TO [facility]. PT CHANGED AND DRESSED WITH 2 PERSON ROLLING. IV D/C CATHETER INTACT. PT SPOSE AND NURSE AT [facility] VERBALIZE D/C INSTRUCTIONS. L GROIN SOFT AND NON TENDER. CAMILLE LIFT USED TO TX PT BACK TO WHEELCHAIR. PT SPOUSE PUSHES HIM OUT OF DEPT WITH D/C PAPERWORK IN BAG, TO WAIT FOR TRANSFER SERVICE.
== END 2025-08-20 15:35 | disposition home or self-care (01) ==
LOC: MHTC 10:03
DX: E11.51 Type 2 diabetes mellitus with diabetic peripheral angiopathy without gangrene (principal); I70.221 Atherosclerosis of native arteries of extremities with rest pain, right leg; L97.512 Non-pressure chronic ulcer of other part of right foot with fat layer exposed; I11.0 Hypertensive heart disease with heart failure; I50.20 Unspecified systolic (congestive) heart failure; I48.19 Other persistent atrial fibrillation; J44.9 Chronic obstructive pulmonary disease, unspecified; E66.9 Obesity, unspecified; Z87.891 Personal history of nicotine dependence; Z79.01 Long term (current) use of anticoagulants; Z79.899 Other long term (current) drug therapy; Z88.5 Allergy status to narcotic agent; Z88.0 Allergy status to penicillin; Z88.8 Allergy status to other drugs, medicaments and biological substances
CPT/HCPCS: 37224; 37228; 37232; 75716; 75774; 76937; 99152; 99153; C1725; C1760; C1769; C1887; C1894; J1644; J3010; J7030; J7050; Q9967

== ENCOUNTER 2025-08-23 13:42 | Inpatient (IN) | payer MEDICARE, OTHER ==
[~2025-08-23] VITALS: Ht 182.9 cm; Wt 98.7 kg
[2025-08-23] MEDS ORDERED: NS 1,000 ML IV SCH ×2 (14:00→18:40)
[2025-08-23 14:18] LABS: BASOPHILS ABSOLUTE AUTO 0.02 K/mm3 (0.00-0.23); BASOPHILS PERCENT AUTO 0 % (0-2); EOSINOPHILS ABSOLUTE AUTO 0.01 K/mm3 (0.00-0.68); EOSINOPHILS PERCENT AUTO 0 % (0-6); Hematocrit 34.3 % (37.0-53.0); Hemoglobin 10.9 g/dL (13.5-17.5); IMMATURE GRAN ABSOLUTE AUTO 0.17 K/mm3 (0.00-0.10); IMMATURE GRAN PERCENT AUTO 2 % (0-1); LYMPHOCYTES ABSOLUTE AUTO 1.16 K/mm3 (0.84-5.20); LYMPHOCYTES PERCENT AUTO 11 % (21-46); MONOCYTES ABSOLUTE AUTO 1.44 K/mm3 (0.16-1.47); MONOCYTES PERCENT AUTO 13 % (4-13); Mean Corpuscular HGB Conc 31.8 g/dL (31.5-36.5); Mean Corpuscular Volume 88 fL (80-100); NEUTROPHILS ABSOLUTE AUTO 8.11 K/mm3 (1.96-9.15); NEUTROPHILS PERCENT AUTO 74 % (41-73); NRBC ABSOLUTE 0.09 K/mm3 (0.00-0.02); NRBC Auto 0.8 /100 WBC (0.0-0.2); Platelet Count 265 K/mm3 (150-400); RDW Coefficient Variation 16.2 % (11.7-14.2); RDW Standard Deviation 50.4 fL (35.1-46.3)
[2025-08-23 14:37] LABS: Alanine Aminotransfer (ALT/SGP 27.0 U/L (12-78); Albumin, Blood 2.5 g/dL (3.4-5.0); Albumin/Globulin Ratio 0.6 (0.8-1.8); Anion Gap 13.0 mmol/L (3-11); Aspartate Aminotrans (AST/SGOT 38.0 U/L (12-37); Bilirubin, Total 0.4 mg/dL (0.1-1.0); Blood Urea Nitrogen 77.0 mg/dL (8-24); CO2, Blood 23.0 mmol/L (21-32); Calcium, Blood 10.7 mg/dL (8.5-10.1); Chloride, Blood 111.0 mmol/L (98-108); Creatinine, Blood 3.7 mg/dL (0.60-1.20); Globulin, Blood 4.2 g/dL (2.2-4.0); Glucose, Blood 155.0 mg/dL (70-99); Magnesium, Blood 2.6 mg/dL (1.6-2.4); Potassium, Blood 4.8 mmol/L (3.5-5.5); Sodium, Blood 142.0 mmol/L (136-145); Total Protein, Blood 6.7 g/dL (6.4-8.2)
[2025-08-23] MEDS ORDERED: Metoprolol Tartrate 1 MG/ML 5 ML VIAL IV PRN ×2 (15:45→18:45)
[2025-08-23] MEDS ORDERED: Ondansetron HCl 2 MG / ML 2ML Vial IV PRN (18:40)
[2025-08-23] MEDS ORDERED: Albuterol 2.5 MG/3 ML VIAL INH PRN (18:40)
[2025-08-23] MEDS ORDERED: FLU VACC TS2025(65UP)/MF59C/PF 45 MCG/0.5 ML SYRINGE IM SCH (19:05)
[2025-08-23] MEDS ORDERED: Insulin Glargine 100 Unit/ML 3 ML SYR SC SCH (21:00)
[2025-08-23] MEDS ORDERED: DAPAGLIFLOZIN5 MG PO (22:06)
[2025-08-23] MEDS ORDERED: FLONASE ALLERG9.9 M2 (22:10)
[2025-08-23] MEDS ORDERED: MIRALAX11910 PO (22:11)
[2025-08-23] MEDS ORDERED: LOSARTAN-HCTZ1 EACH PO (22:15)
[2025-08-23] MEDS ORDERED: LINE600 PO (22:24)
[2025-08-23] MEDS ORDERED: VISBIOME 112.51 EACH PO (22:24)
[2025-08-23] MEDS ORDERED: ACET500 PO (22:27)
[2025-08-23] MEDS ORDERED: AIRSUPRA 90-810.7 GM INH (22:30)
[2025-08-23] MEDS ORDERED: BISA5EC PO (22:31)
[2025-08-23] MEDS ORDERED: DOCU100 PO (22:32)
[2025-08-23] MEDS ORDERED: BISA10S PR (22:32)
[2025-08-23] MEDS ORDERED: NITR.4SL SL (22:33)
[2025-08-23] MEDS ORDERED: TAMSULOSIN HCL0.4 M1 PO (22:36)
[2025-08-23 23:16] LABS: Influenza A/2009-H1 Not Detected (NOT DETECT); SARS-Cov-2 (COVID-19), BioFire Detected (NOT DETECT)
[2025-08-24] VITALS (9 sets, daily range): BP systolic 95–151; BP diastolic 64–99
[2025-08-24 03:47] LABS: Hematocrit 32.8 % (37.0-53.0); Hemoglobin 10.4 g/dL (13.5-17.5); Mean Corpuscular HGB Conc 31.7 g/dL (31.5-36.5); Mean Corpuscular Volume 88 fL (80-100); NRBC ABSOLUTE 0.04 K/mm3 (0.00-0.02); NRBC Auto 0.4 /100 WBC (0.0-0.2); Platelet Count 249 K/mm3 (150-400); RDW Coefficient Variation 16.4 % (11.7-14.2); RDW Standard Deviation 51.8 fL (35.1-46.3)
[2025-08-24 04:11] LABS: Prothrombin Time Results 13.0 Sec (9.7-11.5)
[2025-08-24 04:12] LABS: Anion Gap 12.0 mmol/L (3-11); Blood Urea Nitrogen 77.0 mg/dL (8-24); CO2, Blood 19.0 mmol/L (21-32); Calcium, Blood 9.9 mg/dL (8.5-10.1); Chloride, Blood 115.0 mmol/L (98-108); Creatinine, Blood 3.23 mg/dL (0.60-1.20); Glucose, Blood 106.0 mg/dL (70-99); Magnesium, Blood 2.5 mg/dL (1.6-2.4); Potassium, Blood 4.0 mmol/L (3.5-5.5); Sodium, Blood 142.0 mmol/L (136-145)
--- NOTE | 2025-08-24 06:47 | NUR ---
PT STABLE SINCE ADMIT. PT REMAINS MINIMALLY VERBAL BUT DOES OCCASSIONALY ANSWER QUESTIONS AND RESPONDS WITH MORE THAN ONE WORD. ORIENTATION LEVEL STILL REMAINS UNCLEAR D/T PT VERBAL STATUS, PT IS AOX1 AT THIS TIME. PT HAS PULLED OFF TELE LEADS MULTIPLE TIMES. ATTEMPTS TO REORIENT NEED FOR TELE LEADS TO REMAIN IN PLACE PERFORMED AFTER EACH OCCURENCE. PT RT FOOT DRESSING WAS TAKEN DOWN AND PHOTOS OBTAINED. RT FOOT REDRESSED WITH PREVIOUS DRESSING. NO C/O PAIN PER PATIENT. PT TOLERATING IV FLUIDS WELL. VITALS SIGNS REMAIN WITHIN PARAMETERS.
[2025-08-24] MEDS ORDERED: Isosorbide Mononitrate 30 MG TABCR PO SCH (09:00)
[2025-08-24] MEDS ORDERED: Polyethylene Glycol 3350 17 gm PO PRN (09:45)
[2025-08-24] MEDS ORDERED: Fluticasone 0.05% Nasal Spray PRN (10:05)
[2025-08-24] MEDS ORDERED: ALBUTEROL INH PRN (10:05)
[2025-08-24] MEDS ORDERED: BUDESONIDE INH PRN (10:05)
[2025-08-24] MEDS ORDERED: Linezolid 600MG/Iso-Dext 300ML 300 ML IV SCH (10:08)
--- NOTE | 2025-08-24 12:02 | NUR ---
Merlyn confirms that the patient has had a 40 pound weight loss in the time that the patient has been at [facility], which is a total of 3 months. The weight loss has been within the last month, she says. Pt has had very poor appetite and not responding well to physical therapy. States pt has 3 years ago been diagnosed with dementia but lately his confusion and odd behaviour (tapping on his chest, spitting out pills, not engaging in conversation has increased. Call to Dr Braswell office by to ask about pt having surgery. He was scheduled as an outpatient for today. OFfice said that they would reach out to the physician to update him on pt's current condition and ask about possibility for surgery.
[2025-08-24] MEDS ORDERED: Phenylephrine HCl 100 MCG/ML-NS 10MLSYR (1MG/10ML) ONE (16:31)
[2025-08-24] MEDS ORDERED: EpiNEPhrine 1 MG/1 ML 1ML Vial ONE (16:36)
[2025-08-24] MEDS ORDERED: NS 100 ML IV ONE (16:43)
[2025-08-24] MEDS ORDERED: CeFAZolin Sodium 2,000 MG VIAL ONE (16:43)
--- NOTE | 2025-08-24 16:59 | NUR ---
08/24/25 1659 Laury,Naila ANCEF 2GM IV GIVEN BY AT 1646
[2025-08-24] MEDS ORDERED: Rocuronium Bromide 10 MG/ML 5ML Injection IV ONE (17:01)
[2025-08-24] MEDS ORDERED: HYDROmorphone HCl/Pf 1MG SYR ONE (17:04)
[2025-08-24] MEDS ORDERED: HYDROmorphone HCl/Pf 1MG SYR IV PRN ×2 (17:05→17:10)
[2025-08-24] MEDS ORDERED: FentaNYL Citrate 50 MCG/ML 2 ML Injection IV PRN ×2 (17:05→17:10)
[2025-08-24] MEDS ORDERED: Albuterol 2.5 MG/3 ML VIAL INH PRN (17:05)
[2025-08-24] MEDS ORDERED: Ondansetron HCl 2 MG / ML 2ML Vial IV PRN (17:05)
--- NOTE | 2025-08-24 17:12 | NUR ---
PT SUMMARY: PT A/O TO SELF, 1-2 WORD RESPONSES, ABLE TO FOLLOW COMMANDS FOR THE MOST PART. PT STRENGTH EQUAL BILATERALLY, R LEG NWB FOR BKA. PT BEDREST, Q2 TURN. ROOM AIR, SATS >95%. DENIES SOB. PT AFIB 110s-130s THIS MORNING, HAS SINCE TRENDED DOWN TO 90-100s. PT DENIES CHEST PAIN/PRESSURE. BLADDER SCAN SHOWED >400 CC OF URINE, STRAIGHT CATHED PT FOR A TOTAL OF 500CC. PT PLACED BACK ON [employer] SYSTEM FOR INCONTINENCE. PT CURRENTLY IN OPERATING ROOM FOR R BKA SURGERY. WILL UPDATE ON PT PER ARRIVAL.
[2025-08-24] MEDS ORDERED: Bupivacaine 0.5% W/EPI 1:200000 SDV 30 ML Vial ONE (17:20)
[2025-08-24] MEDS ORDERED: Sugammadex Sodium 200 MG/2ML SDV (100 MG/ML) ONE (17:23)
[2025-08-24] MEDS ORDERED: Ondansetron HCl 2 MG / ML 2ML Vial ONE (17:40)
[2025-08-24] MEDS ORDERED: Dexamethasone Sod Phos 10 MG/ML 1ML VIAL ONE (17:40)
--- NOTE | 2025-08-24 18:23 | NUR ---
Pt arrived after recovery in the OR, due to his covid + status. He is alert, in his usual today confused mentation, at bedside. Pt appears to be calm, comfortable and in no dyspnea. He is requiring 2 l/min of o2 to keep sp02 greater than 88%. Lung sounds are clear. Heart rate 104-107, atrial fibrillation. Bladder scan revealed 21 cc. Purewick is in place, hooked to suction. Vital signs are all stable. Right leg wrapped in surgical dressing, which is clean dry and intact. The pt does not appear to have any pain. RIght leg stump was elevated on 2 pillows. CBG checked, 137. The pt is drifting off to sleep. NS is infusing IV at 75 cc/hour.
[2025-08-24] MEDS ORDERED: Lactobacil 2-S.Thermo-Bifido 1 1 Cap PO SCH (21:00)
[2025-08-24] MEDS ORDERED: Insulin Human Lispro 100 Units/ML 3ML Syringe SC SCH ×2 (21:00)
--- NOTE | 2025-08-24 21:48 | NUR ---
TRANSFER OF CARE PT ALERT, OREINTED TO SELF ONLY. HR IN THE 90'S-100'S, AFIB. SBP SOFT IN THE 90'S-100'S, MAP >65. PT ON 2-3L VIA NC POST PROCEDURE. PT ON RA AT BASELINE. PT HAS PUREWICK IN PLACE. S/P R FOOT AMPUTATION. WHEN ASKED ABOUT PAIN PT SHOOK HEAD NO. PT SURGICAL WITH TELE STATUS. BED OPEN ON SURGICAL FLOOR. REPORT GIVEN TO RN. PT TRANSFERED VIA BED TO SURGICAL FLOOR.
--- NOTE | 2025-08-24 22:03 | NUR ---
ARRIVAL TO UNIT PT ARRIVED TO ROOM IN NO DISTRESS. TRANSFER FROM PCU. VSS. 3L O2 VIA NC SPO2 100%. CONTINUOUS PULSE OX IN PLACE. PT ORIENTED TO SELF. CALL LIGHT WITHIN REACH. BED ALARM ON.
[2025-08-25 00:14] VITALS: BP 109/77
--- NOTE | 2025-08-25 04:47 | NUR ---
SHIFT SUMMARY POD 1 R BKA. PT ORIENTED TO SELF. PAIN INCREASED THROUGHOUT SHIFT WITH INCREASED AGITATION. PT UNABLE TO SWALLOW ORAL PAIN MEDICATION. PROVIDER CONTACTED, ORDER FOR IV PAIN MANAGEMENT RECEIVED. PT BECAME CONFUSED/AGGITATED PERIODICALLY AND PULLED IV. NEW PERIPHERAL IV SITE ESTABLISHED. CONTINUOUS PULSE OX IN PLACE SPO2 100% ON 3L VIA NC. PT ON TELEMETRY AFIB @93 W/BBB PER AIRCRAFT LANDING GEAR INSPECTOR. PT CARE PLAN ONGOING. CALL LIGHT WITHIN REACH.
[2025-08-25] MEDS ORDERED: FentaNYL Citrate 50 MCG/ML 2 ML Injection IV PRN (04:50)
[2025-08-25 05:17] LABS: BASOPHILS ABSOLUTE AUTO 0.01 K/mm3 (0.00-0.23); BASOPHILS PERCENT AUTO 0 % (0-2); EOSINOPHILS ABSOLUTE AUTO 0.01 K/mm3 (0.00-0.68); EOSINOPHILS PERCENT AUTO 0 % (0-6); Hematocrit 27.7 % (37.0-53.0); Hemoglobin 8.7 g/dL (13.5-17.5); IMMATURE GRAN ABSOLUTE AUTO 0.08 K/mm3 (0.00-0.10); IMMATURE GRAN PERCENT AUTO 1 % (0-1); LYMPHOCYTES ABSOLUTE AUTO 1.32 K/mm3 (0.84-5.20); LYMPHOCYTES PERCENT AUTO 16 % (21-46); MONOCYTES ABSOLUTE AUTO 0.55 K/mm3 (0.16-1.47); MONOCYTES PERCENT AUTO 7 % (4-13); Mean Corpuscular HGB Conc 31.4 g/dL (31.5-36.5); Mean Corpuscular Volume 89 fL (80-100); NEUTROPHILS ABSOLUTE AUTO 6.15 K/mm3 (1.96-9.15); NEUTROPHILS PERCENT AUTO 76 % (41-73); NRBC ABSOLUTE 0.02 K/mm3 (0.00-0.02); NRBC Auto 0.2 /100 WBC (0.0-0.2); Platelet Count 260 K/mm3 (150-400); RDW Coefficient Variation 16.4 % (11.7-14.2); RDW Standard Deviation 51.5 fL (35.1-46.3)
[2025-08-25 05:43] LABS: Anion Gap 11.0 mmol/L (3-11); Blood Urea Nitrogen 74.0 mg/dL (8-24); CO2, Blood 22.0 mmol/L (21-32); Calcium, Blood 9.0 mg/dL (8.5-10.1); Chloride, Blood 114.0 mmol/L (98-108); Creatinine, Blood 3.44 mg/dL (0.60-1.20); Glucose, Blood 173.0 mg/dL (70-99); Potassium, Blood 4.7 mmol/L (3.5-5.5); Sodium, Blood 142.0 mmol/L (136-145)
[2025-08-25 07:37] VITALS: BP 141/84
[2025-08-25] MEDS ORDERED: Cholecalciferol 1000 Unit Tablet (=25MCG) PO SCH (09:00)
[2025-08-25] MEDS ORDERED: Potassium Chloride 10 Meq Tablet SA PO SCH (09:00)
[2025-08-25 11:43] VITALS: BP 121/66
[2025-08-25 14:45] VITALS: BP 117/69
[2025-08-25 19:35] VITALS: BP 178/155
[2025-08-25] MEDS ORDERED: LORazepam 2 MG/ML 1ML Injection IV PRN (19:55)
[2025-08-25] MEDS ORDERED: Protein Supplement 30 ML UD PO SCH (21:00)
--- NOTE | 2025-08-26 01:03 | NUR ---
0100- MIDNIGHT VS HELD DUE TO PT SLEEPING AND HAVING TO BE MEDICATED FOR BEHAVIOR ISSUES. CURTAIN CLEANER INFORMED TO WAIT TIL AM VITALS.
--- NOTE | 2025-08-26 04:11 | NUR ---
NOC SUMMARY- PT HAD PULLED OFF O2 AND TELE AT BEGINNING OF SHIFT. PT IS CONFUSED AND NOT DIRECTABLE. PT HAS ATTEMPTED TO PUNCH STAFF. PROVIDER MART CALLED AND ORDERED FOR IM ZYPREXA AND TO ESTABLISH A IV DUE TO PT BEING ON TELE. PROVIDER DID NOT WANT TO DC TELE DO TO HX OF AFIB RVR. PT MEDICATED PER JAN. TELE WAS PLACED BACK ON PT AND REMAINS ON. PT HAS BEEN RESTING QUIETLY. PT CONTINUES TO HIT CHEST. PT DRESSING REMAINS C/D/I. PT VOIDING VIA PUREWICK DEVICE. PT SPIT OUT PO MEDS. PT REPOSITINED TOLERATED. CALL LIGHT IN REACH, BED ALARM ON AND SITTER PRESENT.
[2025-08-26 05:04] VITALS: BP 137/94
[2025-08-26 07:22] VITALS: BP 148/100
[2025-08-26 08:57] LABS: BASOPHILS ABSOLUTE AUTO 0.03 K/mm3 (0.00-0.23); BASOPHILS PERCENT AUTO 0 % (0-2); EOSINOPHILS ABSOLUTE AUTO 0.24 K/mm3 (0.00-0.68); EOSINOPHILS PERCENT AUTO 3 % (0-6); Hematocrit 27.8 % (37.0-53.0); Hemoglobin 8.9 g/dL (13.5-17.5); IMMATURE GRAN ABSOLUTE AUTO 0.09 K/mm3 (0.00-0.10); IMMATURE GRAN PERCENT AUTO 1 % (0-1); LYMPHOCYTES ABSOLUTE AUTO 2.18 K/mm3 (0.84-5.20); LYMPHOCYTES PERCENT AUTO 24 % (21-46); MONOCYTES ABSOLUTE AUTO 0.80 K/mm3 (0.16-1.47); MONOCYTES PERCENT AUTO 9 % (4-13); Mean Corpuscular HGB Conc 32.0 g/dL (31.5-36.5); Mean Corpuscular Volume 88 fL (80-100); NEUTROPHILS ABSOLUTE AUTO 5.90 K/mm3 (1.96-9.15); NEUTROPHILS PERCENT AUTO 64 % (41-73); NRBC ABSOLUTE 0.00 K/mm3 (0.00-0.02); NRBC Auto 0.0 /100 WBC (0.0-0.2); Platelet Count 300 K/mm3 (150-400); RDW Coefficient Variation 16.9 % (11.7-14.2); RDW Standard Deviation 50.7 fL (35.1-46.3)
[2025-08-26 09:07] LABS: Anion Gap 8.0 mmol/L (3-11); Blood Urea Nitrogen 62.0 mg/dL (8-24); CO2, Blood 24.0 mmol/L (21-32); Calcium, Blood 9.0 mg/dL (8.5-10.1); Chloride, Blood 116.0 mmol/L (98-108); Creatinine, Blood 2.64 mg/dL (0.60-1.20); Glucose, Blood 95.0 mg/dL (70-99); Potassium, Blood 4.1 mmol/L (3.5-5.5); Sodium, Blood 144.0 mmol/L (136-145)
--- NOTE | 2025-08-26 16:17 | NUR ---
ATTEMPTED TO GIVE REPORT TO [facility]. NO ANSWER FROM NURSE AFTER TELEPHONE TRANSFER TO UNIT. WILL REATTEMPT SHORTLY.
--- NOTE | 2025-08-26 16:44 | NUR ---
REPORT CALLED TO [facility]. ALL QUESTIONS ANSWERED. PLAN FOR STRETCHER TRANSFER AT 1700
--- NOTE | 2025-08-26 17:28 | NUR ---
PT DISCHARGED ENROUTE TO [facility] VIA RECLINING W/C.
== END 2025-08-26 17:24 | DRG 239 ==
LOC: ER 13:42 → PCU 13:43 → SURS 08-24 21:00
PROVIDERS: Emergency Medicine; Internal Medicine; Nurse Practitioner Acute Care; Orthopaedic Surgery; ADMIT Internal Medicine
PROC: 3E03328 Introduction of Oxazolidinones into Peripheral Vein, Percutaneous Approach (ICD-10-PCS; 2025-08-24)
PROC: 0Y6H0Z1 Detachment at Right Lower Leg, High, Open Approach (ICD-10-PCS; principal; 2025-08-24 16:00)
DX: E11.52 Type 2 diabetes mellitus with diabetic peripheral angiopathy with gangrene (principal); U07.1 COVID-19; F03.94 Unspecified dementia, unspecified severity, with anxiety; I13.0 Hypertensive heart and chronic kidney disease with heart failure and stage 1 through stage 4 chronic kidney disease, or unspecified chronic kidney disease; I48.20 Chronic atrial fibrillation, unspecified; I50.22 Chronic systolic (congestive) heart failure; M86.8X7 Other osteomyelitis, ankle and foot; N17.9 Acute kidney failure, unspecified; N18.4 Chronic kidney disease, stage 4 (severe); Z66 Do not resuscitate; M19.90 Unspecified osteoarthritis, unspecified site; E78.5 Hyperlipidemia, unspecified; E11.40 Type 2 diabetes mellitus with diabetic neuropathy, unspecified; E11.69 Type 2 diabetes mellitus with other specified complication; E11.22 Type 2 diabetes mellitus with diabetic chronic kidney disease; Z79.01 Long term (current) use of anticoagulants; E66.01 Morbid (severe) obesity due to excess calories; J44.9 Chronic obstructive pulmonary disease, unspecified; G47.33 Obstructive sleep apnea (adult) (pediatric); E11.621 Type 2 diabetes mellitus with foot ulcer; Z88.0 Allergy status to penicillin; Z88.1 Allergy status to other antibiotic agents; Z88.8 Allergy status to other drugs, medicaments and biological substances; Z79.899 Other long term (current) drug therapy; I25.2 Old myocardial infarction; Z86.14 Personal history of Methicillin resistant Staphylococcus aureus infection; Z68.27 Body mass index [BMI] 27.0-27.9, adult
CPT/HCPCS: 0202U; 36415; 51701; 71045; 80048; 80053; 82947; 83735; 83880; 84484; 85025; 85027; 85610; 86850; 86900; 86901; 92610; 93005; 93010; 94762; 96361; 96374; 97166; 97530; 99285-25; A9270; G0378; J0169; J0690; J1100; J1171; J1815; J2020; J2060; J2371; J2405; J2704; J3010; J7030

== ENCOUNTER 2025-09-15 21:50 | Inpatient (IN) | payer MEDICARE, OTHER ==
[~2025-09-15] VITALS: Ht 177.8 cm; Wt 94.9 kg
[~2025-09-15 21:50] MED LIST changes: +ACET500 PO; +AIRSUPRA 90-810.7 GM INH; +BISA10S PR; +BISA5EC PO; +DAPAGLIFLOZIN5 MG PO; +FLONASE ALLERG9.9 M2; +LINE600 PO; +LOSARTAN-HCTZ1 EACH PO; +MIRALAX11910 PO; +TAMSULOSIN HCL0.4 M1 PO; +VISBIOME 112.51 EACH PO
[2025-09-15 22:50] LABS: BASOPHILS ABSOLUTE AUTO 0.05 K/mm3 (0.00-0.23); BASOPHILS PERCENT AUTO 1 % (0-2); EOSINOPHILS ABSOLUTE AUTO 0.18 K/mm3 (0.00-0.68); EOSINOPHILS PERCENT AUTO 2 % (0-6); Hematocrit 34.5 % (37.0-53.0); Hemoglobin 10.8 g/dL (13.5-17.5); IMMATURE GRAN ABSOLUTE AUTO 0.07 K/mm3 (0.00-0.10); IMMATURE GRAN PERCENT AUTO 1 % (0-1); LYMPHOCYTES ABSOLUTE AUTO 1.85 K/mm3 (0.84-5.20); LYMPHOCYTES PERCENT AUTO 19 % (21-46); MONOCYTES ABSOLUTE AUTO 0.78 K/mm3 (0.16-1.47); MONOCYTES PERCENT AUTO 8 % (4-13); Mean Corpuscular HGB Conc 31.3 g/dL (31.5-36.5); Mean Corpuscular Volume 89 fL (80-100); NEUTROPHILS ABSOLUTE AUTO 7.03 K/mm3 (1.96-9.15); NEUTROPHILS PERCENT AUTO 71 % (41-73); NRBC ABSOLUTE 0.03 K/mm3 (0.00-0.02); NRBC Auto 0.3 /100 WBC (0.0-0.2); RDW Coefficient Variation 18.8 % (11.7-14.2); RDW Standard Deviation 61.9 fL (35.1-46.3)
[2025-09-15 23:02] LABS: Platelet Count 352 K/mm3 (150-400)
[2025-09-15 23:03] LABS: Alanine Aminotransfer (ALT/SGP 40.0 U/L (12-78); Albumin, Blood 2.4 g/dL (3.4-5.0); Albumin/Globulin Ratio 0.6 (0.8-1.8); Anion Gap 8.0 mmol/L (3-11); Aspartate Aminotrans (AST/SGOT 43.0 U/L (12-37); Bilirubin, Total 0.5 mg/dL (0.1-1.0); Blood Urea Nitrogen 56.0 mg/dL (8-24); CO2, Blood 22.0 mmol/L (21-32); Calcium, Blood 10.0 mg/dL (8.5-10.1); Chloride, Blood 118.0 mmol/L (98-108); Creatinine, Blood 1.62 mg/dL (0.60-1.20); Globulin, Blood 4.3 g/dL (2.2-4.0); Glucose, Blood 189.0 mg/dL (70-99); Potassium, Blood 4.1 mmol/L (3.5-5.5); Sodium, Blood 144.0 mmol/L (136-145); Total Protein, Blood 6.7 g/dL (6.4-8.2)
[2025-09-15 23:45] LABS: Thyroid Stimulating Hormone 3.1 uIU/mL (0.360-4.800)
[2025-09-16] VITALS (16 sets, daily range): BP systolic 95–151; BP diastolic 54–106
[2025-09-16 00:34] LABS: Source, Urine Clean Catch
[2025-09-16 00:56] LABS: Bilirubin, Urine Neg (Neg); Glucose Qualitative, Urine 4+ (Neg); Ketones, Urine Neg (Neg); Leukocyte Esterase, Urine 3+ (Neg); Protein, Urine 3+ (Neg); Specific Gravity, Urine 1.020 (1.003-1.022); Urobilinogen, Urine NORM (Normal)
[2025-09-16 01:00] LABS: Color, Urine Yellow (P-Yellow)
[2025-09-16 01:01] LABS: Red Blood Cells, Urine 0-2 /hpf (0-2); White Blood Cells, Urine 50-100 /hpf (0-5)
[2025-09-16] MEDS ORDERED: LevoFLOXacin 750 MG/D5W 150ML 150 ML IV ONE (01:30)
[2025-09-16] MEDS ORDERED: NS 1,000 ML IV SCH (02:30)
[2025-09-16] MEDS ORDERED: Vancomycin (Pharmacy Consult) IV SCH (02:30)
[2025-09-16] MEDS ORDERED: FLU VACC TS2025(65UP)/MF59C/PF 45 MCG/0.5 ML SYRINGE IM SCH (02:30)
[2025-09-16] MEDS ORDERED: Ondansetron HCl 2 MG / ML 2ML Vial IV PRN ×2 (02:30→14:30)
[2025-09-16] MEDS ORDERED: Cefepime HCl 1,000 MG in NS 100 ML IV SCH (02:46)
[2025-09-16 03:09] LABS: Source, Urine Foley catheter
[2025-09-16 03:52] LABS: Bilirubin, Urine Neg (Neg); Color, Urine Yellow (P-Yellow); Glucose Qualitative, Urine 3+ (Neg); Ketones, Urine Neg (Neg); Leukocyte Esterase, Urine 3+ (Neg); Protein, Urine 3+ (Neg); Specific Gravity, Urine 1.025 (1.003-1.022); Urobilinogen, Urine NORM (Normal)
[2025-09-16 04:02] LABS: Red Blood Cells, Urine 0-2 /hpf (0-2); White Blood Cells, Urine 50-100 /hpf (0-5)
[2025-09-16 04:49] LABS: BASOPHILS ABSOLUTE AUTO 0.05 K/mm3 (0.00-0.23); BASOPHILS PERCENT AUTO 1 % (0-2); EOSINOPHILS ABSOLUTE AUTO 0.22 K/mm3 (0.00-0.68); EOSINOPHILS PERCENT AUTO 2 % (0-6); Hematocrit 34.5 % (37.0-53.0); Hemoglobin 10.0 g/dL (13.5-17.5); IMMATURE GRAN ABSOLUTE AUTO 0.06 K/mm3 (0.00-0.10); IMMATURE GRAN PERCENT AUTO 1 % (0-1); LYMPHOCYTES ABSOLUTE AUTO 2.03 K/mm3 (0.84-5.20); LYMPHOCYTES PERCENT AUTO 22 % (21-46); MONOCYTES ABSOLUTE AUTO 0.74 K/mm3 (0.16-1.47); MONOCYTES PERCENT AUTO 8 % (4-13); Mean Corpuscular HGB Conc 29.0 g/dL (31.5-36.5); Mean Corpuscular Volume 93 fL (80-100); NEUTROPHILS ABSOLUTE AUTO 6.30 K/mm3 (1.96-9.15); NEUTROPHILS PERCENT AUTO 67 % (41-73); NRBC ABSOLUTE 0.00 K/mm3 (0.00-0.02); NRBC Auto 0.0 /100 WBC (0.0-0.2); Platelet Count 346 K/mm3 (150-400); RDW Coefficient Variation 18.6 % (11.7-14.2); RDW Standard Deviation 63.6 fL (35.1-46.3)
[2025-09-16 05:11] LABS: Alanine Aminotransfer (ALT/SGP 34.0 U/L (12-78); Albumin, Blood 2.3 g/dL (3.4-5.0); Albumin/Globulin Ratio 0.6 (0.8-1.8); Anion Gap 8.0 mmol/L (3-11); Aspartate Aminotrans (AST/SGOT 33.0 U/L (12-37); Bilirubin, Total 0.5 mg/dL (0.1-1.0); Blood Urea Nitrogen 56.0 mg/dL (8-24); CO2, Blood 25.0 mmol/L (21-32); Calcium, Blood 10.1 mg/dL (8.5-10.1); Chloride, Blood 116.0 mmol/L (98-108); Creatinine, Blood 1.64 mg/dL (0.60-1.20); Globulin, Blood 4.0 g/dL (2.2-4.0); Glucose, Blood 208.0 mg/dL (70-99); Potassium, Blood 4.1 mmol/L (3.5-5.5); Sodium, Blood 145.0 mmol/L (136-145); Total Protein, Blood 6.3 g/dL (6.4-8.2)
[2025-09-16] MEDS ORDERED: CLIN150 PO (06:20)
[2025-09-16] MEDS ORDERED: FentaNYL Citrate 50 MCG/ML 2 ML Injection IV PRN ×3 (06:25→14:35)
[2025-09-16] MEDS ORDERED: ESCI10 PO (06:31)
[2025-09-16] MEDS ORDERED: FARXIGA5 MG (06:34)
[2025-09-16] MEDS ORDERED: METO50ER PO (06:36)
[2025-09-16] MEDS ORDERED: Polyethylene Glycol 3350 17 gm PO PRN (06:40)
[2025-09-16] MEDS ORDERED: Formoterol/Mometasone MDI 5/100 mcg 13 GM INH PRN (06:55)
--- NOTE | 2025-09-16 07:52 | NUR ---
PT MONITORED DURING THE SHIFT,PT NONVERBAL SECONDARY TO SEVERE DEMENTIA.PT PATTING FOREHEAD AND THUMBING CHEST WITH RIGHT HAND CONTINUOUSLY.PT PULLING ON CORDS AND WIRES,FREQUENTLY REDIRECTED TO STOP BITTING THE CORDS AND WIRES.PT'S TACHYCARDIC AT 0622,HR IN THE 130'-140'S.DR ALEXANDER Mitchell NOTIFIED.PAIN MEDICATION ORDERED.PRN FENTANYL 50MCG IV GIVEN.REPORT GIVEN TO DAYSHIFT NURSE. AT BEDSIDE UPDATED ON PT'S ASSESSMENT DURING THE SHIFT.BED ALARM IN USE FOR FALL PREVENTION SAFETY.MONITORING ONGOING PER CAREPLAN.
[2025-09-16] MEDS ORDERED: Clindamycin 900mg in D5W 50ML 50 ML IV SCH (08:00)
[2025-09-16] MEDS ORDERED: Lactobacil 2-S.Thermo-Bifido 1 1 Cap PO SCH (09:00)
[2025-09-16] MEDS ORDERED: Fluticasone 0.05% Nasal Spray SCH (09:00)
[2025-09-16] MEDS ORDERED: Insulin Glargine 100 Unit/ML 3 ML SYR SC SCH (09:00)
[2025-09-16] MEDS ORDERED: Potassium Chloride 10 Meq Tablet SA PO SCH (09:00)
--- NOTE | 2025-09-16 09:00 | NUR ---
Pt laying in bed with eyes closed, hitting his chest with his right hand, redirecting him, but resumes, and hits head, at bedside, she states he's been doing that, attempted to give him metoprolol po but he is npo, and it's long acting so can't crush it, plaed it in a tiny bit of applesauce, he immediately spit it out, after multiple attemps follow with water. got most of it in, lungs are clear in upper holman, dim in bases, resp even and unlabored, no cough noted, on r/a, hrirr, tele in place running afib with bbb per monitor, see strip, no edema noted, right bka, stump is black around incesion, and red beyond that, skin tear to left elbow, placed mepilex over it, moves arms, btx4, abd flat soft nontender, voids via spence cath draining emi urine, skin pale, with muliple wounds, tori, is primarily nonverbal but will answer with one word occasionally when his is speaking to him, call light in reach.
[2025-09-16] MEDS ORDERED: FURO20 PO (10:03)
[2025-09-16] MEDS ORDERED: Insulin Human Lispro 100 Units/ML 3ML Syringe SC SCH (11:30)
[2025-09-16] MEDS ORDERED: FentaNYL Citrate 50 MCG/ML 2 ML Injection ONE (11:51)
[2025-09-16] MEDS ORDERED: Midazolam HCl 1MG / ML 2ML Vial ONE (11:51)
[2025-09-16] MEDS ORDERED: Bupivacaine 0.5% HCl 5 MG/ML 30MLVIAL ONE (11:51)
[2025-09-16] MEDS ORDERED: Metoprolol Tartrate 1 MG/ML 5 ML VIAL IV PRN (12:10)
--- NOTE | 2025-09-16 12:15 | NUR ---
pt was taken to day surgery for amputation.
[2025-09-16] MEDS ORDERED: ePHEDrine Sulfate 50 MG/ML 1ML Injection ONE (13:11)
[2025-09-16] MEDS ORDERED: HYDROmorphone HCl/Pf 1MG SYR IV PRN (14:30)
--- NOTE | 2025-09-16 14:57 | NUR ---
09/16/25 1457 Fly Eric SEE D/C ASSESSMENT FOR NOTE PT DOING WELL CALM APPROPRIATE NO S/S OF PAIN OR N/V DRESSING CDI
--- NOTE | 2025-09-16 15:34 | NUR ---
pt returned to room after raka, his mentation is the same as prior to surgery, he continues to pat his chest, vs stable, in room, dressing to stump is c/d/i, call light in reach.
--- NOTE | 2025-09-16 16:52 | NUR ---
ROUNDED ON PATIENT. CALLED SPOUSE TO PROVIDE SUPPORT AND DISCUSS [facility]. SHE RELAYED THAT RODOLFO HAD A BKA IN THE SUMMER, THIS HOSPITILIZATION HAD A AKA. HE WAS AT [facility]. DECREADED ORAL INTAKE AND DECREASED MENTATION. SHE REPORTED THAT SHE IS WORKING ON LTCM AND PLACMENT FOR HIM. WE DISCUSSED PROGRESSION OF DEMENTIA. WE DISCUSSED HOSPICE AN OPTION AT SOME POINT WHEN APPROPRIATE. AT THIS TIME SHE WOULD LIKE HIM TO GO TO [facility] FOR SNF TO GIVE TIME TO FIND LTC PLACMENT. WILL PROVIDE INFORMATION FOR DEMENTIA AND DISCUSS WITH DIETITION TOMORROW
--- NOTE | 2025-09-16 19:26 | NUR ---
pt sleeping at the end of the shift, attempted to get him to take a bit of food, he will only open his mouth a tiny bit, continues to hit himself, call light in reach.
[2025-09-17 04:06] VITALS: BP 107/68
[2025-09-17 04:44] LABS: BASOPHILS ABSOLUTE AUTO 0.05 K/mm3 (0.00-0.23); BASOPHILS PERCENT AUTO 1 % (0-2); EOSINOPHILS ABSOLUTE AUTO 0.25 K/mm3 (0.00-0.68); EOSINOPHILS PERCENT AUTO 5 % (0-6); Hematocrit 29.1 % (37.0-53.0); Hemoglobin 8.9 g/dL (13.5-17.5); IMMATURE GRAN ABSOLUTE AUTO 0.06 K/mm3 (0.00-0.10); IMMATURE GRAN PERCENT AUTO 1 % (0-1); LYMPHOCYTES ABSOLUTE AUTO 0.94 K/mm3 (0.84-5.20); LYMPHOCYTES PERCENT AUTO 17 % (21-46); MONOCYTES ABSOLUTE AUTO 0.22 K/mm3 (0.16-1.47); MONOCYTES PERCENT AUTO 4 % (4-13); Mean Corpuscular HGB Conc 30.6 g/dL (31.5-36.5); Mean Corpuscular Volume 91 fL (80-100); NEUTROPHILS ABSOLUTE AUTO 3.93 K/mm3 (1.96-9.15); NEUTROPHILS PERCENT AUTO 72 % (41-73); NRBC ABSOLUTE 0.00 K/mm3 (0.00-0.02); NRBC Auto 0.0 /100 WBC (0.0-0.2); Platelet Count 258 K/mm3 (150-400); RDW Coefficient Variation 18.6 % (11.7-14.2); RDW Standard Deviation 62.3 fL (35.1-46.3)
[2025-09-17 05:17] LABS: Alanine Aminotransfer (ALT/SGP 25.0 U/L (12-78); Albumin, Blood 2.0 g/dL (3.4-5.0); Albumin/Globulin Ratio 0.6 (0.8-1.8); Anion Gap 7.0 mmol/L (3-11); Aspartate Aminotrans (AST/SGOT 24.0 U/L (12-37); Bilirubin, Total 0.4 mg/dL (0.1-1.0); Blood Urea Nitrogen 49.0 mg/dL (8-24); C-Reactive Protein, High Sens. 106.0 mg/L (0.000-3.000); CO2, Blood 22.0 mmol/L (21-32); Calcium, Blood 9.0 mg/dL (8.5-10.1); Chloride, Blood 122.0 mmol/L (98-108); Creatinine, Blood 1.8 mg/dL (0.60-1.20); Globulin, Blood 3.3 g/dL (2.2-4.0); Glucose, Blood 113.0 mg/dL (70-99); Phosphorus, Blood 3.1 mg/dL (2.5-4.9); Potassium, Blood 3.9 mmol/L (3.5-5.5); Sodium, Blood 147.0 mmol/L (136-145); Total Protein, Blood 5.3 g/dL (6.4-8.2)
[2025-09-17] MEDS ORDERED: Formoterol/Mometasone MDI 5/100 mcg 13 GM INH SCH (06:55)
[2025-09-17 07:36] VITALS: BP 125/89
[2025-09-17] MEDS ORDERED: Isosorbide Mononitrate 30 MG TABCR PO SCH (09:00)
[2025-09-17] MEDS ORDERED: NS 250 ML IV PRN (09:15)
[2025-09-17 11:31] VITALS: BP 104/63
[2025-09-17] MEDS ORDERED: Cefepime HCl 2,000 MG in NS 100 ML IV SCH (12:00)
[2025-09-17 16:06] VITALS: BP 117/68
--- NOTE | 2025-09-17 16:28 | NUR ---
CASE CONFRENCE- DISCUSSED CASE WITH PROVIDER AND CARE COORDINATION. RELAYED CONVERSATION WITH FAMILY TO CARE COORDINATION AND PROVIDER. SOME CONFUSION WHERE FAMILY IS AT WITH [employer] INSURANCE AND PLACMENT. RELAYED THAT THIS IS THE WIFES BIGGEST CONCERN.
[2025-09-17] MEDS ORDERED: METO50ER PO (17:55)
[2025-09-17] MEDS ORDERED: LIQUICAL PLUS480 ML PO (17:58)
[2025-09-17] MEDS ORDERED: KLONOPIN0.5 M9 PO (17:59)
--- NOTE | 2025-09-17 19:26 | NUR ---
SHIFT SUMMARY PT IS A/O TO SELF, FAMILY, AND CURRENT SITUATION AT TIMES. NO ACUTE EVENTS THROUGHOUT THIS SHIFT. R AKA DRESSING REMAINS C/D/I. PLAN FOR WOUND CARE DRESSING TO BE CHANGED BY DR THOMASON TOMORROW. ON TELE RUNNING AFIB IN THE 80'S. HOWARD IN PLACE DRAINING YELLOW URINE TO GRAVITY. TOLERATING MED CRUSHED IN APPLESAUCE. AT BEDSIDE THIS AFTERNOON. PT IS PLEASANT AND COOPERATIVE WITH CARE.
[2025-09-17 19:50] VITALS: BP 99/68
[2025-09-18 00:29] VITALS: BP 141/75
[2025-09-18 03:40] VITALS: BP 132/77
--- NOTE | 2025-09-18 04:28 | NUR ---
SHIFT SUMMARY PATIENT HAD NO ACUTE CHANGES. AXOX 2 AND BEDREST. DENIES CHEST PAIN, SOB, AND N/V. VSS/AFEBRILE. RIGHT AKA C/D/I. CBG 151. TELE MONITOR AFIB 94. HOWARD PATENT AND DRAINING TO GRAVITY. TAKES MEDS CRUSHED IN APPLESAUCE. PIV INTACT. IV ABX INFUSED. CALL LIGHT IN REACH. BED IN LOWEST POSTION. WILL CONTINUE TO MONITOR UNTIL DAY SHIFT NURSE ASSUMES CARE.
[2025-09-18 04:41] LABS: BASOPHILS ABSOLUTE AUTO 0.04 K/mm3 (0.00-0.23); BASOPHILS PERCENT AUTO 1 % (0-2); EOSINOPHILS ABSOLUTE AUTO 0.30 K/mm3 (0.00-0.68); EOSINOPHILS PERCENT AUTO 6 % (0-6); Hematocrit 30.3 % (37.0-53.0); Hemoglobin 9.3 g/dL (13.5-17.5); IMMATURE GRAN ABSOLUTE AUTO 0.06 K/mm3 (0.00-0.10); IMMATURE GRAN PERCENT AUTO 1 % (0-1); LYMPHOCYTES ABSOLUTE AUTO 1.29 K/mm3 (0.84-5.20); LYMPHOCYTES PERCENT AUTO 25 % (21-46); MONOCYTES ABSOLUTE AUTO 0.41 K/mm3 (0.16-1.47); MONOCYTES PERCENT AUTO 8 % (4-13); Mean Corpuscular HGB Conc 30.7 g/dL (31.5-36.5); Mean Corpuscular Volume 92 fL (80-100); NEUTROPHILS ABSOLUTE AUTO 3.13 K/mm3 (1.96-9.15); NEUTROPHILS PERCENT AUTO 60 % (41-73); NRBC ABSOLUTE 0.00 K/mm3 (0.00-0.02); NRBC Auto 0.0 /100 WBC (0.0-0.2); Platelet Count 279 K/mm3 (150-400); RDW Coefficient Variation 18.7 % (11.7-14.2); RDW Standard Deviation 63.2 fL (35.1-46.3)
[2025-09-18 05:57] LABS: C-REACTIVE PROTEIN, EXT RANGE 6.880 mg/dL (0.000-0.300)
[2025-09-18 06:03] LABS: Albumin, Blood 2.1 g/dL (3.4-5.0); Anion Gap 9 mmol/L (3-11); Blood Urea Nitrogen 48 mg/dL (8-24); C-Reactive Protein, High Sens. 68.000 mg/L (0.000-3.000); CO2, Blood 22 mmol/L (21-32); Calcium, Blood 9.6 mg/dL (8.5-10.1); Chloride, Blood 122 mmol/L (98-108); Creatinine, Blood 1.78 mg/dL (0.60-1.20); Glucose, Blood 152 mg/dL (70-99); Phosphorus, Blood 2.9 mg/dL (2.5-4.9); Potassium, Blood 4.1 mmol/L (3.5-5.5); Sodium, Blood 149 mmol/L (136-145)
[2025-09-18 08:16] VITALS: BP 155/90
[2025-09-18 09:36] LABS: Vancomycin, Trough 27.9 ug/mL (5.0-10.0)
[2025-09-18] MEDS ORDERED: Protein Supplement 30 ML UD PO SCH (14:00)
[2025-09-18 16:01] VITALS: BP 147/96
--- NOTE | 2025-09-18 17:01 | NUR ---
NO ACUTE CHANGES PT HAS BEEN AOX1 WILL PAT HEAD WHEN NEEDED ASSISTANCE. PT TREATED FOR PAIN PER EMAR. PT TOOK CRUHSED MED, BUT REFUSED TRYING THE UNCRUCHABLE MEDS WHOLE SPITTING THEM OUT. PT DID NOT WANT TO WORK WITH RESPIRATORY REFUSING THOSE TREATMENTS. PT IS REPOSTIONED Q2 HRS. PT FOELY IS PATIENT AND URINE YELLOW. PT HAS CALL LIGHT WITHIN REACH, BUT DOESN'E US IT. BED IN LOWEST POSITION BED ALARM IN PLACE WILL CONTINUE TO MONITOR.
[2025-09-18 20:10] VITALS: BP 115/69
[2025-09-18] MEDS ORDERED: HYDROmorphone HCl/Pf 1MG SYR IV SCH (21:00)
[2025-09-18 23:23] VITALS: BP 128/80
[2025-09-19 03:53] VITALS: BP 116/85
--- NOTE | 2025-09-19 04:02 | NUR ---
SHIFT SUMMARY PATIENT HAD NO ACUTE CHANGES. ALERT TO SELF, BEDREST, AND MOSTLY NON VERBAL. DENIES CHEST PAIN, SOB, AND N/V. VSS/AFEBRILE. PIV INTACT. IV ABX INFUSED. TELE MONITOR AFIB 103. HOWARD PATENT AND DRAINING TO GRAVITY. TAKES MEDS CRUSHED IN APPLESAUCE. RIGHT AKA C/D/I. CALL LIGHT IN REACH. BED IN LOWEST POSITION. WILL CONTINUE TO MONITOR UNTIL DAY SHIFT NURSE ASSUMES CARE.
[2025-09-19 04:58] LABS: BASOPHILS ABSOLUTE AUTO 0.06 K/mm3 (0.00-0.23); BASOPHILS PERCENT AUTO 1 % (0-2); EOSINOPHILS ABSOLUTE AUTO 0.33 K/mm3 (0.00-0.68); EOSINOPHILS PERCENT AUTO 5 % (0-6); Hematocrit 32.7 % (37.0-53.0); Hemoglobin 10.1 g/dL (13.5-17.5); IMMATURE GRAN ABSOLUTE AUTO 0.07 K/mm3 (0.00-0.10); IMMATURE GRAN PERCENT AUTO 1 % (0-1); LYMPHOCYTES ABSOLUTE AUTO 1.95 K/mm3 (0.84-5.20); LYMPHOCYTES PERCENT AUTO 29 % (21-46); MONOCYTES ABSOLUTE AUTO 0.68 K/mm3 (0.16-1.47); MONOCYTES PERCENT AUTO 10 % (4-13); Mean Corpuscular HGB Conc 30.9 g/dL (31.5-36.5); Mean Corpuscular Volume 93 fL (80-100); NEUTROPHILS ABSOLUTE AUTO 3.72 K/mm3 (1.96-9.15); NEUTROPHILS PERCENT AUTO 55 % (41-73); NRBC ABSOLUTE 0.00 K/mm3 (0.00-0.02); NRBC Auto 0.0 /100 WBC (0.0-0.2); Platelet Count 324 K/mm3 (150-400); RDW Coefficient Variation 18.8 % (11.7-14.2); RDW Standard Deviation 63.1 fL (35.1-46.3)
[2025-09-19 05:25] LABS: Alanine Aminotransfer (ALT/SGP 27.0 U/L (12-78); Albumin, Blood 2.3 g/dL (3.4-5.0); Albumin/Globulin Ratio 0.6 (0.8-1.8); Anion Gap 8.0 mmol/L (3-11); Aspartate Aminotrans (AST/SGOT 34.0 U/L (12-37); Bilirubin, Total 0.5 mg/dL (0.1-1.0); Blood Urea Nitrogen 46.0 mg/dL (8-24); CO2, Blood 23.0 mmol/L (21-32); Calcium, Blood 9.5 mg/dL (8.5-10.1); Chloride, Blood 123.0 mmol/L (98-108); Creatinine, Blood 1.79 mg/dL (0.60-1.20); Globulin, Blood 3.7 g/dL (2.2-4.0); Glucose, Blood 133.0 mg/dL (70-99); Phosphorus, Blood 2.6 mg/dL (2.5-4.9); Potassium, Blood 4.2 mmol/L (3.5-5.5); Sodium, Blood 150.0 mmol/L (136-145); Total Protein, Blood 6.0 g/dL (6.4-8.2)
[2025-09-19 07:16] VITALS: BP 147/81
[2025-09-19 15:28] VITALS: BP 100/61
--- NOTE | 2025-09-19 17:13 | NUR ---
SHIFT SUMMARY; PT A/OX2 (SELF/PERSON) AND UNABLE TO DIRECTLY VERBALIZE PAIN. PT MEDICATED PER EMAR W/ MEDS THAT CAN BE CRUSHED IN APPLESAUCE, HOWEVER PT SPIT OUT WHOLE MEDS. PT'S PAIN IS CONTROLLED W/ PAIN MED PER EMAR. AT BEDSIDE TODAY AND HELPFUL W/ ENCOURAGING PO INTAKE. PT HAS HAD LIMITED URINE OUTPUT TODAY. PT ON TELE WITH AFIB AT 117 BPM. VSS. BED IN LOW POSITION AND CALL LIGHT WITHIN REACH.
--- NOTE | 2025-09-19 17:40 | NUR ---
THIS IMPOSER HAS REVIEWED AND AGREES TO ALL NOTES AND ASSESSMENTS BY RAFAEL BRAMBILA.
[2025-09-19 19:40] VITALS: BP 125/77
[2025-09-19 23:20] VITALS: BP 107/80
[2025-09-20 03:29] VITALS: BP 122/69
--- NOTE | 2025-09-20 04:15 | NUR ---
SHIFT SUMMARY PATIENT HAD NO ACUTE CHANGES. ALERT TO SELF AND BEDREST. SCHEDULE IV DILAUDID GIVEN FOR RIGHT AKA PAIN. PIV INTACT. IV ABX INFUSED. TELE MONITOR AFIB 115. NO S/SX OF CHEST PAIN, SOB, AND N/V. VSS/AFEBRILE. CONTINUE TO TAP HEAD AND CHEST. HOWARD PATENT AND DRAINING TO GRAVITY. CALL LIGHT IN REACH. BED IN LOWEST POSITION AND ALARM ON. WILL CONTINUE TO MONITOR UNTIL DAY SHIFT NURSE ASSUMES CARE.
[2025-09-20 07:17] LABS: BASOPHILS ABSOLUTE AUTO 0.05 K/mm3 (0.00-0.23); BASOPHILS PERCENT AUTO 1 % (0-2); EOSINOPHILS ABSOLUTE AUTO 0.36 K/mm3 (0.00-0.68); EOSINOPHILS PERCENT AUTO 4 % (0-6); Hematocrit 33.9 % (37.0-53.0); Hemoglobin 10.2 g/dL (13.5-17.5); IMMATURE GRAN ABSOLUTE AUTO 0.06 K/mm3 (0.00-0.10); IMMATURE GRAN PERCENT AUTO 1 % (0-1); LYMPHOCYTES ABSOLUTE AUTO 1.59 K/mm3 (0.84-5.20); LYMPHOCYTES PERCENT AUTO 19 % (21-46); MONOCYTES ABSOLUTE AUTO 0.62 K/mm3 (0.16-1.47); MONOCYTES PERCENT AUTO 7 % (4-13); Mean Corpuscular HGB Conc 30.1 g/dL (31.5-36.5); Mean Corpuscular Volume 93 fL (80-100); NEUTROPHILS ABSOLUTE AUTO 5.78 K/mm3 (1.96-9.15); NEUTROPHILS PERCENT AUTO 68 % (41-73); NRBC ABSOLUTE 0.00 K/mm3 (0.00-0.02); NRBC Auto 0.0 /100 WBC (0.0-0.2); Platelet Count 358 K/mm3 (150-400); RDW Coefficient Variation 18.6 % (11.7-14.2); RDW Standard Deviation 63.3 fL (35.1-46.3)
[2025-09-20 07:31] VITALS: BP 132/74
[2025-09-20 07:34] LABS: Anion Gap 7.0 mmol/L (3-11); Blood Urea Nitrogen 50.0 mg/dL (8-24); CO2, Blood 24.0 mmol/L (21-32); Calcium, Blood 10.1 mg/dL (8.5-10.1); Chloride, Blood 125.0 mmol/L (98-108); Creatinine, Blood 1.8 mg/dL (0.60-1.20); Glucose, Blood 159.0 mg/dL (70-99); Potassium, Blood 4.3 mmol/L (3.5-5.5); Sodium, Blood 152.0 mmol/L (136-145)
[2025-09-20 14:30] VITALS: BP 128/80
[2025-09-20] MEDS ORDERED: EpiNEPhrine 1 MG/1 ML 1ML Vial IM PRN (14:35)
[2025-09-20] MEDS ORDERED: DiphenhydrAMINE HCl 50 MG/ML 1ML Vial IV PRN (14:40)
[2025-09-20] MEDS ORDERED: Isosorbide Mononitrate 30 MG TABCR PO SCH (14:58)
[2025-09-20] MEDS ORDERED: Isosorbide Mononitrate 20 MG TAB PO SCH (15:00)
--- NOTE | 2025-09-20 17:29 | NUR ---
SHIFT SUMMARY; PT A/OX2, SEEN SLAPPING HIS CHEST AND HEAD W/ HIS HANDS, AND SHOUTS "HEY!" WHEN IN DISCOMFORT. MEDS THAT CAN BE CRUSHED AND GIVEN W/ APPLESAUCE OR LIQUIDCEL GIVEN PER EMAR, OTHERWISE MEDS THAT CAN NOT BE CRUSHED ARE SPIT OUT BY THE PT. R AKA WOUND DRESSING REMOVED AND CHANGED PER ORDER. PT EXPRESSED DISCOMFORT DURING THIS TIME. PT BECAME AGGRIVATED THROUGHOUT THE DAY CAUSING HIM TO PULL ON CATHETER. PT MEDICATED FOR PAIN PER EMAR. HEMATURIA SEEN IN URINE AFTER INCIDENT. BLADDER SCAN PERFORMED. SEE BLADDER MANAGEMENT NOTE. VSS. CALL LIGHT WITHIN REACH AND BED IN LOW POSITION.
--- NOTE | 2025-09-20 17:57 | NUR ---
THIS NITRATING ACID MIXER HAS REVIEWED AND AGREES WITH ALL NOTES AND ASSESSMENTS BY RAFAEL BRAMBILA.
[2025-09-20 19:56] VITALS: BP 124/98
--- NOTE | 2025-09-21 04:04 | NUR ---
TRANSITION OF CARE/SHIFT SUMMARY ASSUMED CARE FROM BARBARA [facility]. PT LAYING IN BED, AWAKE, UNLABORED RESPIRATIONS, L ARM ELEVATED IN AIR, R ARM REPEATEDLY TAPPING HIS CHEST OPEN-HANDED. SIMILAR BEHAVIOR DISPLAYED EARLIER THIS EVENING PER RN AND DIRECTOR REVENUE. PT DOES ALERT TO NAME, BUT IS NON-VERBAL AND DOES NOT ANSWER QUESTION OR APPEAR TO TRACK COMMANDS, THOUGH HIS EYES DO TRACK VERBAL/SOUND STIMULI. HOWARD INTACT RED-TINGED YELLOW URINE. IN REPORT WAS TOLD PT HAD PULLED ON HIS HOWARD AND GROSS HEMATURIA IS IMPROVING. REMAINS AFIB IN 100S ON TELE. IV IN LFA. Q2H TURNS PENDING CLINICAL IMPROVEMENT WITH ANTIBIOTICS FOR PNA, UTI, AND POST-OP HEALING OF RIGHT AKA DONE BY DR. THOMASON ON 09/16/25. SURGICAL DRESSING IS CLEAN AND DRY. MEPILEX ON L ELBOW SKIN TEAR AND OVER COCCYX ERYTHEMA. PT REPORTED TO TAKE MEDS CRUSHED IN APPLESAUCE, OR STIRRED INTO LIQUACEL. IS SUPPORTIVE AND ENCOURAGING OF PO TAKE DURING DAYTIME. PT DIFFICULT TO FEED.
[2025-09-21 04:47] VITALS: BP 157/58
[2025-09-21 07:51] VITALS: BP 101/61
[2025-09-21 11:38] VITALS: BP 103/69
[2025-09-21] MEDS ORDERED: Ampicillin Sod/Sulbactam Sod 1.5 GM in NS 100 ML IV ONE (12:25)
[2025-09-21 14:58] LABS: BASOPHILS ABSOLUTE AUTO 0.06 K/mm3 (0.00-0.23); BASOPHILS PERCENT AUTO 1 % (0-2); EOSINOPHILS ABSOLUTE AUTO 0.55 K/mm3 (0.00-0.68); EOSINOPHILS PERCENT AUTO 5 % (0-6); Hematocrit 32.6 % (37.0-53.0); Hemoglobin 9.6 g/dL (13.5-17.5); IMMATURE GRAN ABSOLUTE AUTO 0.06 K/mm3 (0.00-0.10); IMMATURE GRAN PERCENT AUTO 1 % (0-1); LYMPHOCYTES ABSOLUTE AUTO 1.17 K/mm3 (0.84-5.20); LYMPHOCYTES PERCENT AUTO 10 % (21-46); MONOCYTES ABSOLUTE AUTO 0.59 K/mm3 (0.16-1.47); MONOCYTES PERCENT AUTO 5 % (4-13); Mean Corpuscular HGB Conc 29.4 g/dL (31.5-36.5); Mean Corpuscular Volume 94 fL (80-100); NEUTROPHILS ABSOLUTE AUTO 9.15 K/mm3 (1.96-9.15); NEUTROPHILS PERCENT AUTO 79 % (41-73); NRBC ABSOLUTE 0.00 K/mm3 (0.00-0.02); NRBC Auto 0.0 /100 WBC (0.0-0.2); Platelet Count 370 K/mm3 (150-400); RDW Coefficient Variation 18.7 % (11.7-14.2); RDW Standard Deviation 64.2 fL (35.1-46.3)
[2025-09-21 15:09] VITALS: BP 126/73
[2025-09-21 15:41] LABS: Anion Gap 6.0 mmol/L (3-11); Blood Urea Nitrogen 61.0 mg/dL (8-24); CO2, Blood 25.0 mmol/L (21-32); Calcium, Blood 10.0 mg/dL (8.5-10.1); Chloride, Blood 128.0 mmol/L (98-108); Creatinine, Blood 1.86 mg/dL (0.60-1.20); Glucose, Blood 256.0 mg/dL (70-99); Potassium, Blood 4.3 mmol/L (3.5-5.5); Sodium, Blood 155.0 mmol/L (136-145)
[2025-09-21] MEDS ORDERED: Vancomycin (Pharmacy Consult) IV SCH (15:55)
[2025-09-21] MEDS ORDERED: D5W-1/4NS 1,000 ML IV SCH (16:00)
[2025-09-21] MEDS ORDERED: Insulin Human Lispro 100 Units/ML 3ML Syringe SC SCH (18:00)
--- NOTE | 2025-09-21 18:28 | NUR ---
354 SHIFT SUMMARY PATIENT ALERT BUT NONVERBAL. PATIENT IS ABLE TO MAKE SOUNDS ONLY. PATIENT TAKE MEDS CRUSHED WITH APPLESAUCE BUT HAS BEEN SPITTING ALL OF HIS MEDS. NO ACUTE CHANGES DURING THIS SHIFT. VSS. MEDICATION ADMINISTERED PER EMAR. INFUSING VANCOMYCIN AT 250 ML/HR AND D5W WITH NS AT 150 ML/HR. REPOSITION PATIENT Q2H. CHRONIC HOWARD CATHETER IN PLACE. BED LOCKED AND IN LOWEST POSITION. CALL LIGHT WITHIN REACH.
[2025-09-21 19:50] VITALS: BP 145/90
[2025-09-21] MEDS ORDERED: Insulin Glargine 100 Unit/ML 3 ML SYR SC SCH (21:00)
[2025-09-21 22:10] LABS: Albumin, Blood 2.3 g/dL (3.4-5.0); Anion Gap 11 mmol/L (3-11); Blood Urea Nitrogen 60 mg/dL (8-24); CO2, Blood 23 mmol/L (21-32); Calcium, Blood 9.8 mg/dL (8.5-10.1); Chloride, Blood 125 mmol/L (98-108); Creatinine, Blood 1.80 mg/dL (0.60-1.20); Glucose, Blood 266 mg/dL (70-99); Phosphorus, Blood 2.1 mg/dL (2.5-4.9); Potassium, Blood 4.4 mmol/L (3.5-5.5); Sodium, Blood 155 mmol/L (136-145)
[2025-09-22 00:27] VITALS: BP 136/71
[2025-09-22] MEDS ORDERED: Metoprolol Tartrate 1 MG/ML 5 ML VIAL IV PRN (04:10)
[2025-09-22 04:28] VITALS: BP 131/80
[2025-09-22 04:41] LABS: BASOPHILS ABSOLUTE AUTO 0.07 K/mm3 (0.00-0.23); BASOPHILS PERCENT AUTO 1 % (0-2); EOSINOPHILS ABSOLUTE AUTO 0.46 K/mm3 (0.00-0.68); EOSINOPHILS PERCENT AUTO 4 % (0-6); Hematocrit 30.8 % (37.0-53.0); Hemoglobin 9.2 g/dL (13.5-17.5); IMMATURE GRAN ABSOLUTE AUTO 0.11 K/mm3 (0.00-0.10); IMMATURE GRAN PERCENT AUTO 1 % (0-1); LYMPHOCYTES ABSOLUTE AUTO 1.86 K/mm3 (0.84-5.20); LYMPHOCYTES PERCENT AUTO 17 % (21-46); MONOCYTES ABSOLUTE AUTO 0.68 K/mm3 (0.16-1.47); MONOCYTES PERCENT AUTO 6 % (4-13); Mean Corpuscular HGB Conc 29.9 g/dL (31.5-36.5); Mean Corpuscular Volume 94 fL (80-100); NEUTROPHILS ABSOLUTE AUTO 8.07 K/mm3 (1.96-9.15); NEUTROPHILS PERCENT AUTO 72 % (41-73); NRBC ABSOLUTE 0.00 K/mm3 (0.00-0.02); NRBC Auto 0.0 /100 WBC (0.0-0.2); Platelet Count 399 K/mm3 (150-400); RDW Coefficient Variation 18.9 % (11.7-14.2); RDW Standard Deviation 64.7 fL (35.1-46.3)
[2025-09-22 05:08] LABS: Albumin, Blood 2.2 g/dL (3.4-5.0); Anion Gap 10 mmol/L (3-11); Blood Urea Nitrogen 62 mg/dL (8-24); CO2, Blood 23 mmol/L (21-32); Calcium, Blood 9.8 mg/dL (8.5-10.1); Chloride, Blood 125 mmol/L (98-108); Creatinine, Blood 1.84 mg/dL (0.60-1.20); Glucose, Blood 228 mg/dL (70-99); Phosphorus, Blood 2.3 mg/dL (2.5-4.9); Potassium, Blood 4.3 mmol/L (3.5-5.5); Sodium, Blood 154 mmol/L (136-145)
--- NOTE | 2025-09-22 05:22 | NUR ---
SUMMARY: PT ALERT AND WAKEFUL TO VOICE BUT NONVERBAL OTHER THAN OCCASIONAL SOUNDS AND NOISES. HE'S ABLE TO FOLLOW SOME VERY BASIC INSTRUCTIONS (IE SLURP, TAKE A BITE AND HOLD THE RAIL) DURING MED ADMINISTRATION AND REPOSITIONING. PT TOLERATED PILLS CRUSHED IN LIQUACEL THIS SHIFT AND DIDN'T HAVE ANY ISSUES SPITTING THEM OUT PREVIOUSLY DESCRIBED. D5 1/4NS INFUSION WAS COMPLETED PER EMAR THEN IV WAS SL'D. TURN SCHEDULE MAINTAINED AND MEPILEX DX'S REMAIN C/D/I TO EXCORIATED COCCYX. BARRIER CREAM WAS ALSO APPLIED FOR ADDITIONAL SBD PREVENTION. HE HAD X1 MED.PASTY BM THIS SHIFT W/ATTENDS CHANGED PRN AND CHRONIC HOWARD IS PATENT/DRAINING. R.AKA DX REMAINS C/D/I W/STUMP SOCK IN PLACE. GENERALIZED PAIN WAS WELL MANAGED W/SCHEDULED IV DILAUDID. HE REMAINS AFIB ON TELE AT 1-TEENS BPM, TOUCHING 130'S AT TIMES BUT WAS ASYMPTOMATIC OF CARDIAC DISTRESS. MADE AWARE W/PRN METOPROLOL RX'D AND RECEIVED AND HR IS TRENDING DOWN NOW. ALL OTHER VSS AND NO ACUTE CHANGES. WILL REPORT TO DAY RN.
[2025-09-22] MEDS ORDERED: D5W-1/2NS 1,000 ML IV ONE (07:00)
[2025-09-22] MEDS ORDERED: D5W-1/4NS 1,000 ML IV SCH (07:35)
[2025-09-22 07:40] VITALS: BP 140/84
--- NOTE | 2025-09-22 11:00 | NUR ---
ATTEMPTED VISIT. SPOUSE NOT PRESENT FOR GOALS OF CARE CONVERSATION.
[2025-09-22 15:58] VITALS: BP 129/64
--- NOTE | 2025-09-22 16:46 | NUR ---
DISCUSSED CASE WITH PROVIDER. GOC CONVERSATION WHEN IS PRESENT.
[2025-09-22 17:38] LABS: Vancomycin, Random 29.6 ug/mL
[2025-09-22 17:46] LABS: Albumin, Blood 2.2 g/dL (3.4-5.0); Anion Gap 9 mmol/L (3-11); Blood Urea Nitrogen 63 mg/dL (8-24); CO2, Blood 24 mmol/L (21-32); Calcium, Blood 9.9 mg/dL (8.5-10.1); Chloride, Blood 126 mmol/L (98-108); Creatinine, Blood 1.86 mg/dL (0.60-1.20); Glucose, Blood 217 mg/dL (70-99); Phosphorus, Blood 2.0 mg/dL (2.5-4.9); Potassium, Blood 4.5 mmol/L (3.5-5.5); Sodium, Blood 154 mmol/L (136-145)
--- NOTE | 2025-09-22 19:15 | NUR ---
SHIFT SUMMARY PATIENT DIFFICULT TO AROUSE WITH VERBAL STIMULI BUT RESPONDS TO PAIN. PATIENT S STATED THAT THIS IS NORMAL FOR THE PATIENT. PATIENT IS ABLE TO MAKE SOUNDS ONLY. NO ACUTE CHANGES DURING THIS SHIFT. VSS. MEDICATION ADMINISTERED PER EMAR. D5W WITH NS AT 100 ML/HR. REPOSITION PATIENT Q2H. CHANGED DRESSING TO COCCYX AND STUMP PER ORDER. CHRONIC HOWARD CATHETER IN PLACE. BED LOCKED AND IN LOWEST POSITION. CALL LIGHT WITHIN REACH.
[2025-09-22 20:07] VITALS: BP 106/76
[2025-09-23 04:09] VITALS: BP 103/61
--- NOTE | 2025-09-23 05:26 | NUR ---
NOC SHIFT SUMMARY PT ABLE TO MAKE EYE CONTACT WHEN SPOKEN TO AND VERBALIZED "OKAY" WHEN INFORMING HIM OF CARE PRIOR TO PERFORMING IT. PT UNABLE TO TAKE PO MEDS. PT SPIT OUT PO INTAKE BY THIS RN DESPITE MULTIPLE ATTEMPTS THIS SHIFT. UPDATED PICTURE OF STAGE 2 COCCYX/SACRUM/BUTTOCKS PRESSURE ULCER PLACED IN CHART. NO OTHER ACUTE CHANGES. CALL LIGHT WITHIN REACH AND BED ALARM ON FOR SAFETY.
[2025-09-23 05:35] LABS: Albumin, Blood 2.2 g/dL (3.4-5.0); Anion Gap 7 mmol/L (3-11); Blood Urea Nitrogen 57 mg/dL (8-24); CO2, Blood 25 mmol/L (21-32); Calcium, Blood 9.7 mg/dL (8.5-10.1); Chloride, Blood 125 mmol/L (98-108); Creatinine, Blood 1.71 mg/dL (0.60-1.20); Glucose, Blood 106 mg/dL (70-99); Phosphorus, Blood 2.5 mg/dL (2.5-4.9); Potassium, Blood 4.1 mmol/L (3.5-5.5); Sodium, Blood 153 mmol/L (136-145); Vancomycin, Random 28.1 ug/mL
[2025-09-23] MEDS ORDERED: D5W-1/4NS 1,000 ML IV ONE (07:00)
[2025-09-23 07:41] LABS: BASOPHILS ABSOLUTE AUTO 0.06 K/mm3 (0.00-0.23); BASOPHILS PERCENT AUTO 1 % (0-2); EOSINOPHILS ABSOLUTE AUTO 0.46 K/mm3 (0.00-0.68); EOSINOPHILS PERCENT AUTO 5 % (0-6); Hematocrit 31.9 % (37.0-53.0); Hemoglobin 9.1 g/dL (13.5-17.5); IMMATURE GRAN ABSOLUTE AUTO 0.11 K/mm3 (0.00-0.10); IMMATURE GRAN PERCENT AUTO 1 % (0-1); LYMPHOCYTES ABSOLUTE AUTO 1.74 K/mm3 (0.84-5.20); LYMPHOCYTES PERCENT AUTO 18 % (21-46); MONOCYTES ABSOLUTE AUTO 0.50 K/mm3 (0.16-1.47); MONOCYTES PERCENT AUTO 5 % (4-13); Mean Corpuscular HGB Conc 28.5 g/dL (31.5-36.5); Mean Corpuscular Volume 96 fL (80-100); NEUTROPHILS ABSOLUTE AUTO 6.57 K/mm3 (1.96-9.15); NEUTROPHILS PERCENT AUTO 70 % (41-73); NRBC ABSOLUTE 0.00 K/mm3 (0.00-0.02); NRBC Auto 0.0 /100 WBC (0.0-0.2); Platelet Count 418 K/mm3 (150-400); RDW Coefficient Variation 19.2 % (11.7-14.2); RDW Standard Deviation 67.5 fL (35.1-46.3)
[2025-09-23 07:50] VITALS: BP 134/78
--- NOTE | 2025-09-23 11:20 | NUR ---
ROUNDED ON PATIENT AND MET PATIENTS . PROVIDED DEMENTIA ROADMAP. DISCUSSED HOSPICE IN DEPTH. SPOUSE, MATT, IS NOT READY TO TRANSITION TO HOSPCIE AT THIS TIME. DISCUSSED CASE WITH PROVIDER, FUR DRESSER, AND BSRN
[2025-09-23 12:37] LABS: Anion Gap 5.0 mmol/L (3-11); Blood Urea Nitrogen 61.0 mg/dL (8-24); CO2, Blood 26.0 mmol/L (21-32); Calcium, Blood 9.1 mg/dL (8.5-10.1); Chloride, Blood 125.0 mmol/L (98-108); Creatinine, Blood 1.74 mg/dL (0.60-1.20); Glucose, Blood 178.0 mg/dL (70-99); Potassium, Blood 4.4 mmol/L (3.5-5.5); Sodium, Blood 152.0 mmol/L (136-145)
[2025-09-23 16:29] VITALS: BP 104/63
--- NOTE | 2025-09-23 18:25 | NUR ---
SHIFT SUMMARY PATIENT ALERT, MINIMALLY VERBAL. STATES SHORT 2-3 WORD SENTENCES, UNABLE TO ANSWER ORIENTATION QUESTIONS. PLEASANT AND STATES "I LOVE YOU" TO NURSING STAFF WHILE PROVIDING CARE. PATIENT CONTINUES WITH MINIMAL PO INTAKE AT MEAL TIMES, IV FLUIDS RUNNING PER JAN. DRESSING TO PRESSURE INJURY CDI, CHANGED DURING SOIL CONSERVATIONIST. REPOSITIONED Q2 HOURS. PATIENT'S DIET MODIFIED TO SOFT BITE SIZE COSNISTENT CARB WITH MILDLY THICK FLUIDS. DRESSING TO STUMP CHANGED TODAY PER ORDER. TELEMETRY IN PLACE, AFIB RATE IN 80s WITH PVCs AND BBB. PALLIATIVE CARE SPOEK WITH PATIENT AND HIS SPOUSE THIS MORNING. PATIENT MEDICATED PER JAN FOR PAIN, NO OTHER CONCERNS AT THIS TIME, WILL CONTINUE TO MONITOR.
[2025-09-23 20:31] VITALS: BP 128/82
[2025-09-23 23:22] VITALS: BP 106/70
[2025-09-24 04:31] VITALS: BP 119/75
--- NOTE | 2025-09-24 04:31 | NUR ---
SHIFT SUMMARY ADMITTED FOR SEPSIS. DNR CODE. RLL PNEUMONIA, UTI. ALSO RIGHT STUMP OSTEOMYELITIS, POST BKA 08/24/25. AKA PERFORMED 09/16/25. IV ANTIB RX ARE SCHEDULED. CHRONIC HOWARD IN PLACE. LIFT PATIENT. Q6 CBG'S, HIGH SS. HE WAS GIVING ME SIMPLE YES AND NO ANSWERS TO MY QUESTIONS THIS SHIFT. RX CRUSHED. TELEMETRY: AFIB @ [address] THOMASON. ON RA. FROM [facility]. ADA/SOFT BITE DIET, POOR APPETITE.
[2025-09-24 04:33] LABS: BASOPHILS ABSOLUTE AUTO 0.07 K/mm3 (0.00-0.23); BASOPHILS PERCENT AUTO 1 % (0-2); EOSINOPHILS ABSOLUTE AUTO 0.47 K/mm3 (0.00-0.68); EOSINOPHILS PERCENT AUTO 5 % (0-6); Hematocrit 31.0 % (37.0-53.0); Hemoglobin 9.1 g/dL (13.5-17.5); IMMATURE GRAN ABSOLUTE AUTO 0.12 K/mm3 (0.00-0.10); IMMATURE GRAN PERCENT AUTO 1 % (0-1); LYMPHOCYTES ABSOLUTE AUTO 2.41 K/mm3 (0.84-5.20); LYMPHOCYTES PERCENT AUTO 25 % (21-46); MONOCYTES ABSOLUTE AUTO 0.56 K/mm3 (0.16-1.47); MONOCYTES PERCENT AUTO 6 % (4-13); Mean Corpuscular HGB Conc 29.4 g/dL (31.5-36.5); Mean Corpuscular Volume 94 fL (80-100); NEUTROPHILS ABSOLUTE AUTO 5.92 K/mm3 (1.96-9.15); NEUTROPHILS PERCENT AUTO 62 % (41-73); NRBC ABSOLUTE 0.00 K/mm3 (0.00-0.02); NRBC Auto 0.0 /100 WBC (0.0-0.2); Platelet Count 424 K/mm3 (150-400); RDW Coefficient Variation 18.7 % (11.7-14.2); RDW Standard Deviation 63.8 fL (35.1-46.3)
[2025-09-24 05:07] LABS: Magnesium, Blood 2.3 mg/dL (1.6-2.4)
[2025-09-24 05:08] LABS: Albumin, Blood 2.1 g/dL (3.4-5.0); Anion Gap 5 mmol/L (3-11); Blood Urea Nitrogen 60 mg/dL (8-24); CO2, Blood 25 mmol/L (21-32); Calcium, Blood 9.2 mg/dL (8.5-10.1); Chloride, Blood 126 mmol/L (98-108); Creatinine, Blood 1.71 mg/dL (0.60-1.20); Glucose, Blood 72 mg/dL (70-99); Phosphorus, Blood 2.8 mg/dL (2.5-4.9); Potassium, Blood 4.0 mmol/L (3.5-5.5); Sodium, Blood 152 mmol/L (136-145); Vancomycin, Random 22.6 ug/mL
[2025-09-24] MEDS ORDERED: D5W-1/4NS 1,000 ML IV SCH (07:00)
[2025-09-24 07:35] VITALS: BP 102/69
[2025-09-24] MEDS ORDERED: Insulin Glargine 100 Unit/ML 3 ML SYR SC SCH ×2 (09:00→21:00)
[2025-09-24] MEDS ORDERED: Insulin Human Lispro 100 Units/ML 3ML Syringe SC SCH (12:00)
[2025-09-24 16:50] VITALS: BP 126/82
--- NOTE | 2025-09-24 17:11 | NUR ---
End of shift summary: Patient is alert and oriented to self only; pulls at lines/cords and yells during cares at times. Patient with dressing to left elbow and right AKA completed today. Mendez patent and draining yellow urine. All medications administered per EMAR, except medications unable to crush/open. Patient with no complaints of CP or pressure, N/V/D, SOB or pain today. No acute changes noted. Plan for discharge to [facility] tomorrow. Bed alarm on for safety; bed in lowest position; call light within reach. Will continue to monitor until next shift nurse arrives and report is given.
[2025-09-24 20:17] VITALS: BP 116/80
[2025-09-25 00:39] VITALS: BP 138/76
[2025-09-25 03:47] VITALS: BP 136/74
[2025-09-25 05:27] LABS: BASOPHILS ABSOLUTE AUTO 0.07 K/mm3 (0.00-0.23); BASOPHILS PERCENT AUTO 1 % (0-2); EOSINOPHILS ABSOLUTE AUTO 0.33 K/mm3 (0.00-0.68); EOSINOPHILS PERCENT AUTO 4 % (0-6); Hematocrit 31.5 % (37.0-53.0); Hemoglobin 9.4 g/dL (13.5-17.5); IMMATURE GRAN ABSOLUTE AUTO 0.10 K/mm3 (0.00-0.10); IMMATURE GRAN PERCENT AUTO 1 % (0-1); LYMPHOCYTES ABSOLUTE AUTO 1.94 K/mm3 (0.84-5.20); LYMPHOCYTES PERCENT AUTO 24 % (21-46); MONOCYTES ABSOLUTE AUTO 0.54 K/mm3 (0.16-1.47); MONOCYTES PERCENT AUTO 7 % (4-13); Mean Corpuscular HGB Conc 29.8 g/dL (31.5-36.5); Mean Corpuscular Volume 93 fL (80-100); NEUTROPHILS ABSOLUTE AUTO 5.02 K/mm3 (1.96-9.15); NEUTROPHILS PERCENT AUTO 63 % (41-73); NRBC ABSOLUTE 0.00 K/mm3 (0.00-0.02); NRBC Auto 0.0 /100 WBC (0.0-0.2); Platelet Count 471 K/mm3 (150-400); RDW Coefficient Variation 18.9 % (11.7-14.2); RDW Standard Deviation 63.8 fL (35.1-46.3)
[2025-09-25 06:01] LABS: Albumin, Blood 2.2 g/dL (3.4-5.0); Anion Gap 6 mmol/L (3-11); Blood Urea Nitrogen 54 mg/dL (8-24); CO2, Blood 25 mmol/L (21-32); Calcium, Blood 9.1 mg/dL (8.5-10.1); Chloride, Blood 125 mmol/L (98-108); Creatinine, Blood 1.59 mg/dL (0.60-1.20); Glucose, Blood 170 mg/dL (70-99); Phosphorus, Blood 3.2 mg/dL (2.5-4.9); Potassium, Blood 4.2 mmol/L (3.5-5.5); Sodium, Blood 152 mmol/L (136-145); Vancomycin, Random 19.9 ug/mL
--- NOTE | 2025-09-25 07:27 | NUR ---
STEAM SERVICE INSPECTOR SUMMARY PT A&OX1 (SELF ONLY), VSS. ABLE TO COMMUNICATE THROUGH VERY SIMPLE WORDS, BUT DOES REMAIN NON VERBAL AT TIMES AND SCREAMS TO REFUSE CARE. PT HAS BEEN ASLEEP ON AND OFF THROUGHOUT THE NIGHT. CHEST RISE/RESPIRATIONS NOTED. REMAINS ON TELE. SR W/ BBB. HOWARD IN PLACE FREE OF KINKS/OBSTRUCTIONS, DRAINING CLEAR, YELLOW URINE TO GRAVITY. COCCYX MEPILEX CHANGED AND CLEANSED PER ORDERS. CONTINUES TO HAVE POOR APPETITE AND REMAINS ON Q6 BGC. PT PULLED OUT IV, WHICH WAS REPLACED W/ RAC IV. PT SUBSEQUENTLY PULLED RAC IV OUT AROUND SHIFT CHANGE. AM RN NOTIFIED AT BEDSIDE REPORT WELL. BED RAILS UP X 3, BED IN LOWEST POSITION, BED WHEELS LOCKED, BED ALARM ON, PERSONAL BELONGINGS AND CALL LIGHT WITHIN REACH FOR SAFETY.
--- NOTE | 2025-09-25 07:46 | NUR ---
Call to Dr. Humphrey regarding patient pulling his second IV out within 5 hours during shift change. Verbal okay to leave IV out as patient is planning to discharge today.
[2025-09-25 07:47] VITALS: BP 122/103
--- NOTE | 2025-09-25 11:10 | NUR ---
CASE CONFRENCE- REVIEWED PATIENT WITH DR. BETHEA. SHE CONTINUED DISCUSSION ABOUT GOALS WITH PATIENTS . NO CHANGES AT THIS TIME. PLAN IS TO DISCHARGE PATIENT BACK TO [facility] WHEN READY.
[2025-09-25] MEDS ORDERED: NS 500 ML IV SCH (14:35)
--- NOTE | 2025-09-25 19:24 | NUR ---
Patient discharged back to [facility] for continued rehab therapy. Patient belongings bagged and given to spouse prior to discharge. Patient dressed and changed prior to transport. All questions answered and patient transported via gurney by ambulance at approximately 1600.
== END 2025-09-25 16:20 | DRG 474 ==
LOC: ER 21:50 → MEDS 09-16 02:01 → ERHOLD 09-16 02:01 → MEDS 09-16 03:50
PROVIDERS: Emergency Medicine; Internal Medicine; Orthopaedic Surgery; ADMIT Internal Medicine
PROC: 3E03329 Introduction of Other Anti-infective into Peripheral Vein, Percutaneous Approach (ICD-10-PCS; 2025-09-16)
PROC: 0Y6C0Z1 Detachment at Right Upper Leg, High, Open Approach (ICD-10-PCS; principal; 2025-09-16 12:30)
DX: T87.43 Infection of amputation stump, right lower extremity (principal); A41.9 Sepsis, unspecified organism; J15.212 Pneumonia due to Methicillin resistant Staphylococcus aureus; T83.511A Infection and inflammatory reaction due to indwelling urethral catheter, initial encounter; N18.4 Chronic kidney disease, stage 4 (severe); I13.0 Hypertensive heart and chronic kidney disease with heart failure and stage 1 through stage 4 chronic kidney disease, or unspecified chronic kidney disease; I50.22 Chronic systolic (congestive) heart failure; M86.8X6 Other osteomyelitis, lower leg; L03.115 Cellulitis of right lower limb; F03.94 Unspecified dementia, unspecified severity, with anxiety; N39.0 Urinary tract infection, site not specified; E87.0 Hyperosmolality and hypernatremia; Z16.12 Extended spectrum beta lactamase (ESBL) resistance; Z66 Do not resuscitate; M19.90 Unspecified osteoarthritis, unspecified site; I48.91 Unspecified atrial fibrillation; J44.9 Chronic obstructive pulmonary disease, unspecified; I25.2 Old myocardial infarction; E78.5 Hyperlipidemia, unspecified; G47.30 Sleep apnea, unspecified; E11.42 Type 2 diabetes mellitus with diabetic polyneuropathy; F41.9 Anxiety disorder, unspecified; I44.4 Left anterior fascicular block; E11.22 Type 2 diabetes mellitus with diabetic chronic kidney disease; G47.33 Obstructive sleep apnea (adult) (pediatric); D63.1 Anemia in chronic kidney disease; E11.69 Type 2 diabetes mellitus with other specified complication; Z22.322 Carrier or suspected carrier of Methicillin resistant Staphylococcus aureus; B96.1 Klebsiella pneumoniae [K. pneumoniae] as the cause of diseases classified elsewhere; L89.152 Pressure ulcer of sacral region, stage 2; Z79.01 Long term (current) use of anticoagulants; Z79.4 Long term (current) use of insulin; Z79.51 Long term (current) use of inhaled steroids; Z79.84 Long term (current) use of oral hypoglycemic drugs; Z79.899 Other long term (current) drug therapy; Z88.0 Allergy status to penicillin; Z88.1 Allergy status to other antibiotic agents; Z88.8 Allergy status to other drugs, medicaments and biological substances; Z86.19 Personal history of other infectious and parasitic diseases; Z89.511 Acquired absence of right leg below knee; Z98.890 Other specified postprocedural states; Y83.8 Other surgical procedures as the cause of abnormal reaction of the patient, or of later complication, without mention of misadventure at the time of the procedure
CPT/HCPCS: 36415; 70450; 71045; 72125; 73701; 80048; 80053; 80069; 80202; 81001; 82947; 83605; 83735; 83880; 84100; 84443; 84484; 85025; 85651; 86140; 86141; 87040; 87077; 87086; 87186; 88307; 93005; 93010; 94640; 94664; 94760; 99285-25; A9270; J0295; J0692; J1171; J1815; J1956; J2185; J2250; J2704; J3010; J3373; J7030; J7040; J7042; J7050; J7120; Q9967

== ENCOUNTER 2025-09-27 17:49 | Emergency (ER) | payer MEDICARE, OTHER ==
[~2025-09-27] VITALS: Ht 182.9 cm; Wt 90.7 kg
[~2025-09-27 17:49] MED LIST changes: +CLIN150 PO; +ESCI10 PO; +FARXIGA5 MG; +KLONOPIN0.5 M9 PO; +LIQUICAL PLUS480 ML PO; +METO50ER PO
[2025-09-27 20:10] LABS: BASOPHILS ABSOLUTE AUTO 0.08 K/mm3 (0.00-0.23); BASOPHILS PERCENT AUTO 1 % (0-2); EOSINOPHILS ABSOLUTE AUTO 0.33 K/mm3 (0.00-0.68); EOSINOPHILS PERCENT AUTO 4 % (0-6); Hematocrit 35.1 % (37.0-53.0); Hemoglobin 10.4 g/dL (13.5-17.5); IMMATURE GRAN ABSOLUTE AUTO 0.05 K/mm3 (0.00-0.10); IMMATURE GRAN PERCENT AUTO 1 % (0-1); LYMPHOCYTES ABSOLUTE AUTO 1.88 K/mm3 (0.84-5.20); LYMPHOCYTES PERCENT AUTO 21 % (21-46); MONOCYTES ABSOLUTE AUTO 0.53 K/mm3 (0.16-1.47); MONOCYTES PERCENT AUTO 6 % (4-13); Mean Corpuscular HGB Conc 29.6 g/dL (31.5-36.5); Mean Corpuscular Volume 93 fL (80-100); NEUTROPHILS ABSOLUTE AUTO 6.27 K/mm3 (1.96-9.15); NEUTROPHILS PERCENT AUTO 69 % (41-73); NRBC ABSOLUTE 0.00 K/mm3 (0.00-0.02); NRBC Auto 0.0 /100 WBC (0.0-0.2); Platelet Count 532 K/mm3 (150-400); RDW Coefficient Variation 18.7 % (11.7-14.2); RDW Standard Deviation 63.6 fL (35.1-46.3)
[2025-09-27 21:05] LABS: Alanine Aminotransfer (ALT/SGP 82.0 U/L (12-78); Albumin, Blood 2.8 g/dL (3.4-5.0); Albumin/Globulin Ratio 0.8 (0.8-1.8); Anion Gap 6.0 mmol/L (3-11); Aspartate Aminotrans (AST/SGOT 60.0 U/L (12-37); Bilirubin, Total 0.5 mg/dL (0.1-1.0); Blood Urea Nitrogen 45.0 mg/dL (8-24); CO2, Blood 27.0 mmol/L (21-32); Calcium, Blood 9.5 mg/dL (8.5-10.1); Chloride, Blood 120.0 mmol/L (98-108); Creatinine, Blood 1.36 mg/dL (0.60-1.20); Globulin, Blood 3.5 g/dL (2.2-4.0); Glucose, Blood 108.0 mg/dL (70-99); Potassium, Blood 4.1 mmol/L (3.5-5.5); Sodium, Blood 149.0 mmol/L (136-145); Total Protein, Blood 6.3 g/dL (6.4-8.2)
[2025-09-27 22:34] VITALS: BP 146/86
== END 2025-09-27 23:23 | disposition home or self-care (01) ==
LOC: ER 17:49
PROVIDERS: Emergency Medicine
DX: Z47.81 Encounter for orthopedic aftercare following surgical amputation (principal); D64.9 Anemia, unspecified; D75.839 Thrombocytosis, unspecified; R74.01 Elevation of levels of liver transaminase levels; E87.0 Hyperosmolality and hypernatremia; I13.0 Hypertensive heart and chronic kidney disease with heart failure and stage 1 through stage 4 chronic kidney disease, or unspecified chronic kidney disease; E11.22 Type 2 diabetes mellitus with diabetic chronic kidney disease; N18.4 Chronic kidney disease, stage 4 (severe); I50.22 Chronic systolic (congestive) heart failure; J44.9 Chronic obstructive pulmonary disease, unspecified; I25.10 Atherosclerotic heart disease of native coronary artery without angina pectoris; I48.91 Unspecified atrial fibrillation; G47.30 Sleep apnea, unspecified; E78.00 Pure hypercholesterolemia, unspecified; Z87.891 Personal history of nicotine dependence; Z89.611 Acquired absence of right leg above knee; Z88.0 Allergy status to penicillin; Z91.048 Other nonmedicinal substance allergy status; Z88.8 Allergy status to other drugs, medicaments and biological substances; Z79.01 Long term (current) use of anticoagulants; Z79.899 Other long term (current) drug therapy
CPT/HCPCS: 80053; 83605; 85025; 99283

== ENCOUNTER 2025-10-02 11:48 | Inpatient (IN) | payer MEDICARE, OTHER ==
[~2025-10-02] VITALS: Ht 172.7 cm; Wt 95.9 kg
[2025-10-02 13:24] LABS: BASOPHILS ABSOLUTE AUTO 0.08 K/mm3 (0.00-0.23); BASOPHILS PERCENT AUTO 1 % (0-2); EOSINOPHILS ABSOLUTE AUTO 0.46 K/mm3 (0.00-0.68); EOSINOPHILS PERCENT AUTO 5 % (0-6); Hematocrit 35.6 % (37.0-53.0); Hemoglobin 10.5 g/dL (13.5-17.5); IMMATURE GRAN ABSOLUTE AUTO 0.03 K/mm3 (0.00-0.10); IMMATURE GRAN PERCENT AUTO 0 % (0-1); LYMPHOCYTES ABSOLUTE AUTO 1.70 K/mm3 (0.84-5.20); LYMPHOCYTES PERCENT AUTO 20 % (21-46); MONOCYTES ABSOLUTE AUTO 0.58 K/mm3 (0.16-1.47); MONOCYTES PERCENT AUTO 7 % (4-13); Mean Corpuscular HGB Conc 29.5 g/dL (31.5-36.5); Mean Corpuscular Volume 93 fL (80-100); NEUTROPHILS ABSOLUTE AUTO 5.89 K/mm3 (1.96-9.15); NEUTROPHILS PERCENT AUTO 67 % (41-73); NRBC ABSOLUTE 0.00 K/mm3 (0.00-0.02); NRBC Auto 0.0 /100 WBC (0.0-0.2); Platelet Count 457 K/mm3 (150-400); RDW Coefficient Variation 18.6 % (11.7-14.2); RDW Standard Deviation 64.6 fL (35.1-46.3)
[2025-10-02 13:38] LABS: C-REACTIVE PROTEIN, EXT RANGE 1.98 mg/dL (0.000-0.300)
[2025-10-02 13:41] LABS: Alanine Aminotransfer (ALT/SGP 54.0 U/L (12-78); Albumin, Blood 2.8 g/dL (3.4-5.0); Albumin/Globulin Ratio 0.8 (0.8-1.8); Anion Gap 4.0 mmol/L (3-11); Aspartate Aminotrans (AST/SGOT 30.0 U/L (12-37); Bilirubin, Total 0.4 mg/dL (0.1-1.0); Blood Urea Nitrogen 47.0 mg/dL (8-24); CO2, Blood 28.0 mmol/L (21-32); Calcium, Blood 9.2 mg/dL (8.5-10.1); Chloride, Blood 122.0 mmol/L (98-108); Creatinine, Blood 1.74 mg/dL (0.60-1.20); Globulin, Blood 3.3 g/dL (2.2-4.0); Glucose, Blood 80.0 mg/dL (70-99); Potassium, Blood 4.6 mmol/L (3.5-5.5); Sodium, Blood 149.0 mmol/L (136-145); Total Protein, Blood 6.1 g/dL (6.4-8.2)
[2025-10-02] MEDS ORDERED: Clindamycin 600mg in D5W 50 ML IV ONE (14:40)
[2025-10-02] MEDS ORDERED: FLU VACC TS2025(65UP)/MF59C/PF 45 MCG/0.5 ML SYRINGE IM SCH (15:25)
[2025-10-02] MEDS ORDERED: AMOCLA875 PO (15:31)
[2025-10-02] MEDS ORDERED: FARXIGA5 MG PO (15:32)
[2025-10-02] MEDS ORDERED: INSULANI SC (15:35)
[2025-10-02] MEDS ORDERED: OXYCODONE-ACET1 EAC3 PO (15:38)
[2025-10-02] MEDS ORDERED: FentaNYL Citrate 50 MCG/ML 2 ML Injection IV STA (17:19)
[2025-10-02] MEDS ORDERED: NS 1,000 ML IV SCH (17:20)
[2025-10-02] MEDS ORDERED: Fluticasone 0.05% Nasal Spray PRN (17:35)
[2025-10-02 17:45] VITALS: BP 126/76
[2025-10-02] MEDS ORDERED: Vancomycin (Pharmacy Consult) IV SCH (18:00)
[2025-10-02] MEDS ORDERED: N-Acetylcysteine 600 MG CAP PO SCH (18:00)
[2025-10-02] MEDS ORDERED: FentaNYL Citrate 50 MCG/ML 2 ML Injection IV PRN (18:00)
--- NOTE | 2025-10-02 18:13 | NUR ---
SHIFT SUMMARY; PT TO ROOM 346 FROM ED AT APPROX 1750. PT STABLE UPON ARRIVAL. INITIAL ASSESSMENT PERFORMED BY THIS RN W/ A SKIN CHECK WITH SECOND STEMHOLE BORER MEMBER. SACRAL MEPALEX APPLIED TO COCCYX AND L ELBOW DUE TO SKIN WOUNDS. SEE PICTURES IN CHART. AT BEDSIDE SHORTLY AFTER ARRIVAL. PT FLOATED. BED IN LOW POSITION AND CALL LIGHT WITHIN REACH.
--- NOTE | 2025-10-02 18:51 | NUR ---
PALLIATIVE CARE NOTE: CONSULT RECEIVED FOR DEMENTIA, ADVANCED CARE PLANNING. REVIEWED MEDICAL RECORD, SPOKE TO PRIMARY RN AND DR. VALENTIN PRIOR TO SPEAKING TO MATT. MET WITH MATT IN PRIVATE OFFICE. WE DISCUSSED CONCERNS OF CONTINUED WOUND INFECTIONS, NON HEALING. MATT REPORTED PT HAS LOST AROUND 60 LBS IN LAST 6 MONTHS. HE DRINKS PROTIEN SHAKES DAILY BUT LIKELIY DOESN'T EAT WHEN SHE IS AWAY. SHE VISITS DAILY AND ASSISTS WITH FEEDING PT ONE MEAL A DAY. DISCUSSED PROGRESSION OF DEMENTIA. PT QUALIFYING DIAGNOSIS FOR HOSPICE SERVICES. PER MATT SHE IS DEFERRING DECISIONS TO STEP DAUGHTER DAVE. SHE IS ACTUALLY IN PROGRESS OF GETTING POA OVER HER DAD. PERMISSION GRANTED TO CALL DAVE TO DISCUSS ABOVE MENTIONED CONCERNS. CALLED DAVE AND SPOKE TO HER IN DETAIL ABOUT ABOVE CONCERNS. SHE ASKED MANY QUESTIONS ABOUT HOSPICE. SHE WOULD LIKE TO CONTINUE WITH TREATMENT AT THIS TIME AND DISCUSS WITH HER OTHER SISTERS BEFORE MAKING DECISIONS. SHE HAS CONTACT INFO AND REQUESTED TO CALL WITH ANY QUESIONS OR CONCERNS. PRIMARY RN UPDATED WITH ABOVE INFORMATION.
--- NOTE | 2025-10-02 18:58 | NUR ---
THIS SILK SOAKER HAS REVIEWED AND AGREES WITH ALL ASSESSMENTS BY RAFAEL BRAMBILA.
[2025-10-02 20:44] VITALS: BP 140/80
[2025-10-02] MEDS ORDERED: Lactobacil 2-S.Thermo-Bifido 1 1 Cap PO SCH (21:00)
[2025-10-02] MEDS ORDERED: Insulin Human Lispro 100 Units/ML 3ML Syringe SC SCH (21:00)
[2025-10-02] MEDS ORDERED: Insulin Glargine 100 Unit/ML 3 ML SYR SC SCH (21:00)
--- NOTE | 2025-10-02 21:00 | NUR ---
PATIENT AGITATED, SLAPPIN CHEST AND HEAD. TRANSFERRED TO [facility] FOR TRANSFER TO CT; PT YELLING AND SCREAMING "NO!" AND "HELP!" ZINC PLATE GRAINER DECLINING TO TAKE PATIENT D/T INCREASED AGITATION. T.O. FOR ZYPREXA 5MG IM; ADMINISTERED.
--- NOTE | 2025-10-02 22:39 | NUR ---
PATIENT FOUND TO HAVE PULLED IV c BLOOD SPATTER FROM HIS CHEST AND HEAD SLAPPING. PATIENT CLEANED UP AND PLACED IN MITS TO PREVENT PULLING. UNABLE TO PLACE NEW IV AT THIS TIME. PROVIDER NOTIFIED.
[2025-10-03] VITALS (15 sets, daily range): BP systolic 88–151; BP diastolic 51–95
[2025-10-03] MEDS ORDERED: Clindamycin 900mg in D5W 50ML 50 ML IV SCH
[2025-10-03 04:53] LABS: Hematocrit 33.4 % (37.0-53.0); Hemoglobin 10.0 g/dL (13.5-17.5); Mean Corpuscular HGB Conc 29.9 g/dL (31.5-36.5); Mean Corpuscular Volume 93 fL (80-100); NRBC ABSOLUTE 0.00 K/mm3 (0.00-0.02); NRBC Auto 0.0 /100 WBC (0.0-0.2); Platelet Count 435 K/mm3 (150-400); RDW Coefficient Variation 18.6 % (11.7-14.2); RDW Standard Deviation 63.7 fL (35.1-46.3)
[2025-10-03 05:06] LABS: Source, Urine Foley catheter
[2025-10-03 05:11] LABS: Anion Gap 8.0 mmol/L (3-11); Blood Urea Nitrogen 41.0 mg/dL (8-24); CO2, Blood 22.0 mmol/L (21-32); Calcium, Blood 9.3 mg/dL (8.5-10.1); Chloride, Blood 122.0 mmol/L (98-108); Creatinine, Blood 1.61 mg/dL (0.60-1.20); Glucose, Blood 76.0 mg/dL (70-99); Potassium, Blood 3.9 mmol/L (3.5-5.5); Sodium, Blood 148.0 mmol/L (136-145)
[2025-10-03 05:27] LABS: Bilirubin, Urine Neg (Neg); Color, Urine Yellow (P-Yellow); Glucose Qualitative, Urine 2+ (Neg); Ketones, Urine Neg (Neg); Leukocyte Esterase, Urine 2+ (Neg); Protein, Urine 3+ (Neg); Specific Gravity, Urine 1.020 (1.003-1.022); Urobilinogen, Urine NORM (Normal)
[2025-10-03 05:40] LABS: White Blood Cells, Urine TNTC /hpf (0-5); Yeast/Fungi Urine Few /hpf
--- NOTE | 2025-10-03 05:58 | NUR ---
END OF SHIFT SUMMARY: ORIENTED TO SELF, ONLY. AGITATED FIRST PART OF SHIFT IMPROVED c ZYPREXA 5MG IM. PULLED OUT IV. DIFFICULTY REPLACING D/T INTERFERING. PLACED IN SOFT MITTS AND IV REPLACED AFTER SEVERAL ATTEMPTS CONSEQUENTLY, VANCO WAS DELAYED AND MIDNIGHT DOSE OF CLEOCIN MISSED ENTIRELY. PROVIDER NOTIFIED. CT COMPLETED AND CALL FROM RADIOLOGY WHO SPOKE c DR CRAFT R/T CRITICAL RESULTS. PLANNED SURGICAL INTERVENTION TODAY. HOWARD REPLACED AND SAMPLE SENT TO LAB PER ORDER. UA INDICATIVE OF INFX; Cx PENDING. REFUSED ALL MEDICATIONS LAST NIGHT. HAS BEEN OBSTINANT TO MOST CARE, PULLING LINES, TAKING OFF O2 WHICH WAS WEANED AND NOW MAINTAINING SPO2 >92% c RA. BREATHING EVEN AND UNLABORED AT THIS TIME. IMAGING SHOWS FECAL RETENTION. NPO x MEDS. ANTICIPATE TO OR c ORTHO FOR DEBRIDEMENT. BED IN LOWEST POSITION, CALL LIGHT WITHIN REACH, ALL NEEDS MET. REPORT TO ONCOMING NURSE.
[2025-10-03] MEDS ORDERED: HYDROmorphone HCl/Pf 1MG SYR IV PRN (08:40)
[2025-10-03] MEDS ORDERED: NS 1,000 ML IV SCH (08:40)
[2025-10-03] MEDS ORDERED: Albuterol 2.5 MG/3 ML VIAL INH PRN (08:40)
[2025-10-03] MEDS ORDERED: FentaNYL Citrate 50 MCG/ML 2 ML Injection IV PRN ×2 (08:40)
[2025-10-03] MEDS ORDERED: Ondansetron HCl 2 MG / ML 2ML Vial IV PRN (08:40)
[2025-10-03] MEDS ORDERED: Enoxaparin 40 MG/0.4 ML SYR SC SCH (09:00)
[2025-10-03] MEDS ORDERED: Misc. Tablet PO SCH (09:00)
[2025-10-03] MEDS ORDERED: Cholecalciferol 1000 Unit Tablet (=25MCG) PO SCH (09:00)
[2025-10-03] MEDS ORDERED: Dextrose 50% 50 ML Vial IV STA (13:47)
[2025-10-03] MEDS ORDERED: Dextrose 50% 50 ML Vial IV PRN (14:00)
--- NOTE | 2025-10-03 15:08 | NUR ---
PALLIATIVE CARE VISIT: MET WITH TODAY TO DISCUSS GOC. MATT STATES SHE SPOKE TO HER DAUGHTER DAVE AND DAVE WILL SUPPORT HER IN WHATEVER DECISION SHE MAKES. RIGHT NOW MATT NEEDS TO CALL OTHER 2 DAUGHTERS INVOLVED AND SPEAK TO THEM AND SHE WILL LIKELY MAKE THE DECISION TO SEND HIM BACK TO [facility] WITH HOSPICE. MEDICAID IS NOT YET APPROVED FOR PAYMENT WITH , PER MATT, BUT SHOULD BE IN PLACE AFTER 10/13 WHEN HIS CHECK IS DEPOSITED INTO THE [employer]. UPDATED CM.
--- NOTE | 2025-10-03 16:11 | NUR ---
SHIFT SUMMARY; PT A/OX2 (PERSON/SELF) AND EXPRESSES AGGITATION W/ VOICEFUL EXPRESSIONS OF SHOUTING "HEY!" AND HITTING HIMSELF. PT REMAINS IN JILL RESTRAINTS DUE TO MULITPLE ATTEMPTS OF TRYING TO PULL IV LINE AND CATH TUBING. PT HAD PROCEDURE TODAY. PT LEFT FLOOR AT APPROX. 0830 AND RETURNED TO MEDICAL FLOOR AT 1050. WOUND VISUALIZED W/ WOUND VAC APPLIED DRAINING SEROSANGUINEOUS FLUID. AMPUTATED LEG ELEVATED ON FOAM WEDGE. PT MEDICATED FOR PAIN PER EMAR. PAIN CONTROLLED EVIDENCE BY UTILIZING CPOT SCALE. DUE TO BEING NPO FOR PROCEDURE, GLUCOSE READINGS LOW IN 60S. CALL PLACED TO DR. VALENTIN TO NOTIFIY. DEXTROSE GIVEN PER EMAR. BED IN LOW POSITION W/ ROOM DOOR OPEN.
--- NOTE | 2025-10-03 17:39 | NUR ---
THIS AIR SAMPLING AND MONITORING HAS REVIEWED AND AGREES WITH ALL NOTES AND ASSESSMENTS BY RAFAEL BRAMBILA.
[2025-10-03 19:48] LABS: Vancomycin, Random 22.6 ug/mL
[2025-10-04 03:56] VITALS: BP 164/78
[2025-10-04 05:02] LABS: BASOPHILS ABSOLUTE AUTO 0.05 K/mm3 (0.00-0.23); BASOPHILS PERCENT AUTO 1 % (0-2); EOSINOPHILS ABSOLUTE AUTO 0.10 K/mm3 (0.00-0.68); EOSINOPHILS PERCENT AUTO 1 % (0-6); Hematocrit 33.0 % (37.0-53.0); Hemoglobin 10.0 g/dL (13.5-17.5); IMMATURE GRAN ABSOLUTE AUTO 0.04 K/mm3 (0.00-0.10); IMMATURE GRAN PERCENT AUTO 1 % (0-1); LYMPHOCYTES ABSOLUTE AUTO 1.34 K/mm3 (0.84-5.20); LYMPHOCYTES PERCENT AUTO 16 % (21-46); MONOCYTES ABSOLUTE AUTO 0.52 K/mm3 (0.16-1.47); MONOCYTES PERCENT AUTO 6 % (4-13); Mean Corpuscular HGB Conc 30.3 g/dL (31.5-36.5); Mean Corpuscular Volume 91 fL (80-100); NEUTROPHILS ABSOLUTE AUTO 6.38 K/mm3 (1.96-9.15); NEUTROPHILS PERCENT AUTO 76 % (41-73); NRBC ABSOLUTE 0.00 K/mm3 (0.00-0.02); NRBC Auto 0.0 /100 WBC (0.0-0.2); Platelet Count 415 K/mm3 (150-400); RDW Coefficient Variation 18.6 % (11.7-14.2); RDW Standard Deviation 62.0 fL (35.1-46.3)
[2025-10-04 05:24] LABS: Anion Gap 9.0 mmol/L (3-11); Blood Urea Nitrogen 29.0 mg/dL (8-24); CO2, Blood 21.0 mmol/L (21-32); Calcium, Blood 9.0 mg/dL (8.5-10.1); Chloride, Blood 122.0 mmol/L (98-108); Creatinine, Blood 1.5 mg/dL (0.60-1.20); Glucose, Blood 150.0 mg/dL (70-99); Potassium, Blood 4.0 mmol/L (3.5-5.5); Sodium, Blood 148.0 mmol/L (136-145)
--- NOTE | 2025-10-04 06:04 | NUR ---
SHIFT SUMMARY NO ACUTE EVENTS DURING THIS SHIFT. PT RESTING IN BED, WHEN AWAKE, SLAPPING HIMSELF ON A CHEST WITH THE HANDS. HANDS ARE COVERED WITH MITTS. OTHERWISE PT CALM AND COOPERATIVE. FLUIDS OFFERED WHICH PT DRANL OK WITH SPOON AND THICKENED APPLE JUICE AND WATER. BED AT THE LOWEST LEVEL, CALL LIGHT W/I REACH. CHRONIC HOWARD DRAINING YELLOW COLOR URINE. NO S/SX OF PAIN NOTED OR REPORTED.
[2025-10-04 07:33] VITALS: BP 161/86
[2025-10-04] MEDS ORDERED: Zinc Sulfate 220 MG Cap (Provides 50MG) PO SCH (15:30)
[2025-10-04] MEDS ORDERED: Multivitamins 1 Tab PO SCH (15:30)
[2025-10-04 15:48] VITALS: BP 125/80
--- NOTE | 2025-10-04 17:03 | NUR ---
SHIFT SUMMARY PATIENT ALERT AND ORIENTED TO SELF, NONE AT TIMES, CONFUSED. PATIENT TENDS TO GRAB STAFF DURING CARE. MEDICATION ADMINISTERED PER JAN. PATIENT SPIT OUT MORNING MEDS CRUSHED IN APPLESAUCE. PATIENT REFUSING INTAKES/THICKENED FLUIDS. NO ACUTE CHANGE DURING THIS SHIFT. VSS. RESPOSITIONED THROUGHOUT THE SHIFT. BED LOCKED AND IN LOWEST POSITION. CALL LIGHT WITHIN REACH.
--- NOTE | 2025-10-04 17:16 | NUR ---
THIS HEEL ROOM SUPERVISOR HAS REVIEWED AND AGREES WITH ALL NOTES AND ASSESSMENTS BY RAFAEL FARR
[2025-10-04 19:35] VITALS: BP 120/67
[2025-10-04 19:47] LABS: Vancomycin, Random 16.2 ug/mL
[2025-10-04] MEDS ORDERED: Mometasone Furoate Inhaler 220 mcg 14 ACT INH SCH (21:35)
[2025-10-04] MEDS ORDERED: Albuterol HFA200 ACT/6.7 GM INH INH PRN (21:35)
--- NOTE | 2025-10-05 02:41 | NUR ---
PT ALERT TO SELF BY NAME. INITIALLY NOT REACTING TO VERBAL STIMULI, AND DIFFICULT TO AROUSE. PT ON RA, VOIDING PER CHRONIC HOWARD CATHETER. PT SHOUTS TO ALERT STAFF, BUT IS UNABLE TO MAKE NEEDS KNOWN. STILL RECEIVING IV ABX. CARE TRANSFERRED TO [facility] @[id number]
[2025-10-05 05:08] VITALS: BP 93/62
--- NOTE | 2025-10-05 05:47 | NUR ---
SHIFT SUMMARY PT IS ALERT AND ORIENTED TO SELF.. PT IS FULL CODE. PT ADMITTED FOR SURGICAL SITE INFECTION. 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 PT CHRONIC HOWARD. PT HAD RIGHT AKA AFTER RIGHT BKA BECAME INFECTED. PT HAS WOUND VAC IN PLACE. PT HAS MITTEN RESTRAINTS ON BOTH HANDS FOR PULLING LINES. PT APPEARED TO SLEEP THROUGH NIGHT WITHOUT ISSUE. BED IS AT LOW POSITION, RAILS TIMES TWO, AND CALL LIGHT WITHIN REACH.
[2025-10-05 07:04] LABS: Anion Gap 10.0 mmol/L (3-11); Blood Urea Nitrogen 28.0 mg/dL (8-24); CO2, Blood 22.0 mmol/L (21-32); Calcium, Blood 8.5 mg/dL (8.5-10.1); Chloride, Blood 119.0 mmol/L (98-108); Creatinine, Blood 1.33 mg/dL (0.60-1.20); Glucose, Blood 153.0 mg/dL (70-99); Potassium, Blood 3.7 mmol/L (3.5-5.5); Sodium, Blood 147.0 mmol/L (136-145)
[2025-10-05 07:36] VITALS: BP 97/53
[2025-10-05] MEDS ORDERED: NS 250 ML IV PRN (08:10)
--- NOTE | 2025-10-05 18:38 | NUR ---
SHIFT SUMMARY PATIENT ALERT AND ORIENTED TO SELF, CONFUSED. PATIENT CONTINUES TO ATTEMPT TO HIT STAFF AND TRIED TO PULL IV BAGS OFF THE POLE. MEDICATION ADMINISTERED PER JAN. PATIENT WAS ABLE TO TAKE MEDS CRUSHED IN APPLESAUCE. NO ACUTE CHANGE DURING THIS SHIFT. VSS. REPOSITIONED THROUGHOUT THE SHIFT. BED LOCKED AND IN LOWEST POSITION. CALL LIGHT WITHIN REACH.
[2025-10-05 19:29] VITALS: BP 111/83
--- NOTE | 2025-10-06 03:29 | NUR ---
VAN DRIVER HELPER SUMMARY VSS. ALERT TO SELF. NOT COOPERATIVE WITH CARE, CONT TO TRY TO PULLOUT LINES, ETC. REMAINS IN BILAT MITTS PER MD ORDER FOR SAFETY. HAS BEEN RESTING QUIETLY WITH FEW INTERRUPTIONS THIS SHIFT. IVF AND ANTIBIOTICS INFUSING - SEE MAR FOR DETAILS. NOT RECEPTIVE TO PO MEDS. REPOSITIONED INTERMITTENTLY FOR COMFORT. HOWARD TO GRAVITY. ON CONTACT PRECAUTIONS FOR ESBL IN URINE. WILL CONT TO MONITOR.
[2025-10-06 03:50] VITALS: BP 101/63
[2025-10-06 07:03] LABS: Anion Gap 10.0 mmol/L (3-11); Blood Urea Nitrogen 28.0 mg/dL (8-24); CO2, Blood 21.0 mmol/L (21-32); Calcium, Blood 8.2 mg/dL (8.5-10.1); Chloride, Blood 116.0 mmol/L (98-108); Creatinine, Blood 1.42 mg/dL (0.60-1.20); Glucose, Blood 130.0 mg/dL (70-99); Potassium, Blood 3.7 mmol/L (3.5-5.5); Sodium, Blood 143.0 mmol/L (136-145)
[2025-10-06 07:15] VITALS: BP 117/69
--- NOTE | 2025-10-06 16:35 | NUR ---
SHIFT SUMMARY: PATIENT DISCHARGED FROM [facility] AT 1500 TO [facility]. PATIENT WAS SENT WITH WOUND VAC AND CHRONIC HOWARD CATH. REPORTED CALLED AND GIVEN TO WOUND NURSE AT [facility]. PATIENT BELONGINGS PROVIDED TO PATIENTS SPOUSE.
== END 2025-10-06 15:07 | DRG 498 ==
LOC: ER 11:48 → MEDS 11:49
PROVIDERS: Orthopaedic Surgery; Student in an Organized Health Care Education/Training Program; ADMIT Internal Medicine
PROC: 3E03329 Introduction of Other Anti-infective into Peripheral Vein, Percutaneous Approach (ICD-10-PCS; 2025-10-02)
PROC: 3E02340 Introduction of Influenza Vaccine into Muscle, Percutaneous Approach (ICD-10-PCS; 2025-10-02)
PROC: 0QB80ZZ Excision of Right Femoral Shaft, Open Approach (ICD-10-PCS; principal; 2025-10-03 09:00)
DX: T87.43 Infection of amputation stump, right lower extremity (principal); M72.6 Necrotizing fasciitis; E11.52 Type 2 diabetes mellitus with diabetic peripheral angiopathy with gangrene; E87.0 Hyperosmolality and hypernatremia; F02.83 Dementia in other diseases classified elsewhere, unspecified severity, with mood disturbance; I13.0 Hypertensive heart and chronic kidney disease with heart failure and stage 1 through stage 4 chronic kidney disease, or unspecified chronic kidney disease; I48.19 Other persistent atrial fibrillation; N18.4 Chronic kidney disease, stage 4 (severe); E87.20 Acidosis, unspecified; I50.22 Chronic systolic (congestive) heart failure; F02.84 Dementia in other diseases classified elsewhere, unspecified severity, with anxiety; Z66 Do not resuscitate; T81.82XA Emphysema (subcutaneous) resulting from a procedure, initial encounter; M19.90 Unspecified osteoarthritis, unspecified site; E78.00 Pure hypercholesterolemia, unspecified; E78.5 Hyperlipidemia, unspecified; E11.40 Type 2 diabetes mellitus with diabetic neuropathy, unspecified; G30.9 Alzheimer's disease, unspecified; E11.22 Type 2 diabetes mellitus with diabetic chronic kidney disease; J44.9 Chronic obstructive pulmonary disease, unspecified; Z96.0 Presence of urogenital implants; E86.0 Dehydration; Z96.622 Presence of left artificial elbow joint; L89.152 Pressure ulcer of sacral region, stage 2; E11.622 Type 2 diabetes mellitus with other skin ulcer; G47.33 Obstructive sleep apnea (adult) (pediatric); Z23 Encounter for immunization; Z99.81 Dependence on supplemental oxygen; Z88.0 Allergy status to penicillin; Z88.1 Allergy status to other antibiotic agents; Z91.048 Other nonmedicinal substance allergy status; Z88.8 Allergy status to other drugs, medicaments and biological substances; Z79.899 Other long term (current) drug therapy; Z79.01 Long term (current) use of anticoagulants; Z79.4 Long term (current) use of insulin; Z79.2 Long term (current) use of antibiotics; Z99.89 Dependence on other enabling machines and devices; Z79.891 Long term (current) use of opiate analgesic; Z86.14 Personal history of Methicillin resistant Staphylococcus aureus infection; Z79.51 Long term (current) use of inhaled steroids; I25.2 Old myocardial infarction; Z86.19 Personal history of other infectious and parasitic diseases; Z98.890 Other specified postprocedural states; Z86.79 Personal history of other diseases of the circulatory system; Z87.891 Personal history of nicotine dependence; Y83.9 Surgical procedure, unspecified as the cause of abnormal reaction of the patient, or of later complication, without mention of misadventure at the time of the procedure
CPT/HCPCS: 36415; 51702; 73552; 73701; 80048; 80053; 80202; 81001; 82947; 83605; 85025; 85027; 86140; 87040; 87070; 87075; 87077; 87086; 87106; 87186; 87205; 94760; 96361; 96365; 96367; 96372; 96375; 96376; 99284-25; A9270; C1751; G0378; J1815; J2185; J2248; J2704; J3010; J3373; J7030; J7050; J7070; J7120; J7799; Q9967